=== PATIENT | female | born 1965 | race Caucasian/White ===

== ENCOUNTER 2023-04-29 18:53 | Outpatient (REF) | payer OTHER, SELFPAY ==
[2023-05-04 13:13] LABS: Age Gdln ACOG Testing Note (.); HPV Aptima Negative (Negative); IGP, Aptima HPV, rfx 16/18,45 Note (.)
== END 2023-04-29 18:54 | disposition home or self-care (01) ==
LOC: LAB 18:53
PROVIDERS: PCP Family Medicine; Visit Provider Physician Assistant
DX: Z12.4 Encounter for screening for malignant neoplasm of cervix (principal); Z11.51 Encounter for screening for human papillomavirus (HPV)
CPT/HCPCS: 87624; G0145

== ENCOUNTER 2023-07-21 15:59 | Outpatient (OUT) | payer OTHER, SELFPAY ==
--- NOTE | 2023-07-21 | MM_ITS ---
Patient: FLAQUITO PATINO Exam Date: 07/21/2023 : 1965 Gender:F Ordering : DR ELSA PALMER . Admission #: [id number] Family : DR LUDWIG Dinesh ELLSWORTH Order #: [id number] CLICK HERE TO VIEW EXAM RADIOLOGY REPORT PROCEDURE: MM TOMOSYNTHESIS SCREENING BI COMPARISON: [facility] MAMM SCREEN 3D COLLEEN CAD, 02/20/2022. [facility] MAMM SCREEN COLLEEN W CAD, 08/21/2020. MG MAMM SCREEN COLLEEN W CAD, 03/29/2019. MG MAMM COLLEEN SCRN W CAD DIG, 02/05/2011. INDICATIONS: Screening Calculator Name NCI Breast Cancer Risk Assessment Tool 5 Year Breast Cancer Risk 2.80% Lifetime Breast Cancer Risk 14.80% Personal Breast Cancer No Personal Ovarian Cancer No Treatments None Family Cancers Mother with breast cancer at age ~58; Aunt-maternal with breast cancer at age 82; Grandfather-maternal with skin cancer at age 60; Uncle-maternal with stomach cancer at age ~40. LOCATION: [facility] BREAST COMPOSITION: Extremely dense, which lowers the sensitivity of mammography. FINDINGS: DIAGNOSTIC CATEGORY 1--NEGATIVE. RIGHT BREAST: No significant suspicious finding. No significant change has occurred. LEFT BREAST: No significant suspicious finding. No significant change has occurred. RECOMMENDATIONS: ROUTINE MAMMOGRAM AND CLINICAL EVALUATION IN 12 MONTHS. PLEASE NOTE: A NORMAL MAMMOGRAM DOES NOT EXCLUDE THE POSSIBILITY OF BREAST CANCER. A CLINICALLY SUSPICIOUS PALPABLE LUMP SHOULD BE BIOPSIED. Dictated by: Jerzy Orellana M.D. on 07/23/2023 at 10:36 Approved by: Jerzy Orellana M.D. on 07/23/2023 at 10:38
== END 2023-07-21 16:00 | disposition home or self-care (01) ==
LOC: MAMMO 15:59
PROVIDERS: PCP Family Medicine; Visit Provider Obstetrics & Gynecology
DX: Z12.31 Encounter for screening mammogram for malignant neoplasm of breast (principal); Z80.3 Family history of malignant neoplasm of breast; Z80.0 Family history of malignant neoplasm of digestive organs
CPT/HCPCS: 77063; 77067

== ENCOUNTER 2023-09-02 07:07 | Outpatient (OUT) | payer OTHER, SELFPAY ==
[2023-09-02 07:35] LABS: Alanine Aminotransferase 23 U/L (14-59); Albumin Globulin Ratio 1.1; Albumin Level 3.6 g/dL (3.4-5.0); Alkaline Phosphatase 99 U/L (46-116); Anion Gap 14.6; Aspartate Amino Transferase 16 U/L (15-37); BUN Creatinine Ratio 18.1; Bilirubin Total 0.4 mg/dL (0.2-1.0); Calcium 8.4 mg/dL (8.5-10.1); Carbon Dioxide 26.5 mmol/L (21.0-32.0); Chloride 105 mmol/L (98-107); Chol HDL Ratio 3.7; Cholesterol 218 mg/dL (<=200); Estimated GFR (African America >60 (>=60); Estimated GFR (Non-African Ame >60 (>=60); Globulin 3.4 g/dL; Glucose 97 mg/dL (74-106); HDL Cholesterol 59 mg/dL (40-60); Potassium 4.1 mmol/L (3.5-5.1); Sodium 142 mmol/L (136-145); Triglycerides 126 mg/dL (<=150); VLDL CHOLESTEROL 25.2 mg/dL
== END 2023-09-02 07:08 | disposition home or self-care (01) ==
LOC: LAB 07:08
PROVIDERS: PCP Family Medicine; Visit Provider Family Medicine
DX: Z00.01 Encounter for general adult medical examination with abnormal findings (principal)
CPT/HCPCS: 36415; 80053; 80061

== ENCOUNTER 2024-08-17 19:50 | Outpatient (REF) | payer OTHER, SELFPAY ==
--- OUTSIDE RECORDS SUMMARY | 2024-08-17 19:53 | XMS_ITS | CCD ---
Author Organization [facility] Care Team Providers Care [place] Stocker Name Role Phone SHILA WALKER Attending Unavailable SARAI, DR MARCELO Harvey Consulting Unavailable REQUEST, DR CORTEZ LISTED Primary Care Unavaila ble AARON, SHILA Admitting Unavailable AARON, SHILA Consulting Unavailable AARON, SHILA Admitting Unavailable AARON, SHILA Attending Unavailable ZIEBER, DR MANUEL Irby Consulting Unavailable REQUEST, DR CORTEZ LISTED Primary Care Unavaila ble AARON, SHILA Consulting Unavailable ZIEBER, DR MANUEL Irby Consulting Unavailable REQUEST, NONE LISTED Primary Care Unavaila ble OLEXA, MITCHELL Admitting Unavailable OLEXA, MITCHELL Attending Unavailable OLEXA, MITCHELL Consulting Unavailable SPENCER, DR HUNTER Admitting Unavailable REQUEST, DR CORTEZ LISTED Primary Care Unavaila ble SPENCER, DR HUNTER Attending Unavailable SPENCER, DR HUNTER Consulting Unavailable HOUSE, DR GOTTLIEB Primary Care Unavailable WEST, DR MARCELO Harvey Consulting Unavailable SPENCER, DR HUNTER Admitting Unavailable SPENCER, DR HUNTER Attending Unavailable SPENCER, DR HUNTER Consulting Unavailable BOBBY, DR MANUEL Irby Consulting Unavailable Kai Mendoza DO Primary Care Provider [phone] ANUP KC Attending Unavailable KAI MENDOZA Referring Unavailable KAI MENDOZA Primary Care Unavailable MANJINDER CARDOZO Attending Unavailable KAI MENDOZA Referring Unavailable KAI MENDOZA Primary Care Unavailable Allergies Allergy Classification Reported Allergen(s) Allergy Type Date of Onset Reaction(s) Facility (1 source) Cephalexin Drug Allergy [facility] Repository (3 sources) Cephalexin; Translations: [CEPHALEXIN] Drug Allergy 04-29-2023 [facility] Medications Current Medications Medication Drug Class(es) Dates Sig (Normalized) Sig (Original) azithromycin 250 mg oral tablet (1 source) Macrolide Antimicrobial Start: 12-30-2023 End: 01-03-2024 azithromycin (ZITHROMAX) 250 mg tablet Indications: Acute non-recurrent pansinusitis Take 2 tablets the first day, then 1 tablet daily for 4 days. 6 tablet 0 12/30/2023 01/03/2024 Active 30 actuat fluticasone furoate 0.1 mg/actuat / umeclidinium 0.0625 mg/actuat / vilanterol 0.025 mg/actuat dry powder inhaler (1 source) Anticholinergic, Corticosteroid, beta2-Adrenergic Agonist Start: 07-18-2024 take 1 puff(s) by inhalation in the morning fluticasone-umecli din-vilanter (TRELEGY ELLIPTA) 100-62.5-25 mcg blister with device Indications: Acute bronchitis, unspecified organism Inhale 1 puff in the morning. 14 each 07/18/2024 Active predniSONE 20 mg oral tablet (1 source) Start: 07-18-2024 End: 07-23-2024 take 1 tablet by mouth in the morning predniSONE (DELTASONE) 20 mg tablet Indications: Acute bronchitis, unspecified organism Take 1 tablet (20 mg total) by mouth in the morning for 5 days. 5 tablet 07/18/2024 07/23/2024 Active Problems Active Problems Problem Classification Problem Date Documented Da te Episodic/Chronic Acute bronchitis (2 sources) Acute bronchitis, unspecified; Translations: [Acute bronchitis] Onset: 07-18-2024 07-18-2024 Episodic Immunizations and screening for infectious disease (1 source) Encounter for screening for human papillomavirus (HPV); Translations: [ENC SCREENING HUMAN PAPILLOMAVIRUS] Onset: 01-22-2022 Episodic Malaise and fatigue (1 source) Fatigue Onset: 07-18-2024 Episodic Other bone disease and musculoskeletal deformities (1 source) Other specified disorders of bone density and structure, unspecified site; Translations: [OTH D/O BONE DEN STRUCT UNS SITE] Onset: 02-26-2022 Episodic Other lower respiratory disease (1 source) Cough Onset: 07-18-2024 Episodic Other screening for suspected conditions (not mental disorders or infectious disease) (5 sources) Encounter for screening mammogram for malignant neoplasm of breast; Translations: [Encounter for screening for malignant neoplasm of cervix] Onset: 01-20-2022 Episodic Other upper respiratory disease (1 source) Nasal congestion Onset: 07-18-2024 Episodic Residual codes; unclassified (4 sources) Asymptomatic menopausal state; Translations: [ASYMPTOMATIC MENOPAUSAL STATE] Onset: 02-20-2022 Episodic Residual codes; unclassified (1 source) Family history of malignant neoplasm of breast; Translations: [FAMILY HX MALIG NEOPLASM OF BREAST] Onset: 02-26-2022 Episodic Residual codes; unclassified (1 source) Family history of malignant neoplasm of digestive organs; Translations: [FAM HX MALIG NEOPLASM DIGESTIV ORGN] Onset: 02-26-2022 Episodic Unclassified (1 source) Sinus Problem Onset: 12-30-2023 Past or Other Problems Problem Classification Problem Date Documented Da te Episodic/Chronic Fracture of upper limb (4 sources) Other fractures of lower end of right radius, subsequent encounter for closed fracture with routine healing; Translations: [OTH FX LOW RT RADUS SUB CLOS FX RTN] Onset: 04-09-2021 Episodic Mood disorders (2 sources) Mood disorders Onset: 12-30-2023 Resolved: 07-18-2024 12-30-2023 Other non-traumatic joint disorders (4 sources) Pain in right wrist; Translations: [PAIN IN RIGHT WRIST] Onset: 03-25-2021 Episodic Other upper respiratory infections (2 sources) Acute pansinusitis; Translations: [Acute pansinusitis, unspecified] Onset: 12-30-2023 12-30-2023 Episodic Unclassified (2 sources) Onset: 12-30-2023 12-30-2023 Results Test Name Value Interpretation Reference Range Facil ity MG MAMM SCREEN 3D COLLEEN CADon 02-20-2022 MG MAMM SCREEN 3D COLLEEN CAD Patient: FLAQUITO DIAZ Exam Date: 02/20/2022 : 1965 Gender:F Ordering : DR ELSA PALMER . Admission #: [id number] Family : Order #: [id number] CLICK HERE TO VIEW EXAM RADIOLOGY REPORT PROCEDURE: MAMMOGRAM SCREENING 3D BILATERAL CAD COMPARISON: MG MAMM SCREEN COLLEEN W CAD, 03/29/2019. MG MAMM SCREEN COLLEEN W CAD, 08/21/2020. INDICATIONS: Screening for malignant neoplasm of breast Calculator Name NCI Breast Cancer Risk Assessment Tool 5 Year Breast Cancer Risk 2.60% Lifetime Breast Cancer Risk 15.40% Personal Breast Cancer No Personal Ovarian Cancer No Treatments None Family Cancers Mother with breast cancer at age 58; Aunt-maternal with breast cancer at age 82; Grandfather-maternal with skin cancer at age 60; Uncle-maternal with stomach cancer at age 40. LOCATION: [facility] BREAST COMPOSITION: Extremely dense, which lowers the sensitivity of mammography. FINDINGS: DIAGNOSTIC CATEGORY 1--NEGATIVE. NO CHANGE FROM COMPARISON ASSESSMENT. Scattered benign-appearing calcifications are present. Scattered benign-appearing lymph nodes are present. RIGHT BREAST: No significant suspicious finding. LEFT BREAST: No significant suspicious finding. RECOMMENDATIONS: ROUTINE MAMMOGRAM AND CLINICAL EVALUATION IN 12 MONTHS. PLEASE NOTE: A NORMAL MAMMOGRAM DOES NOT EXCLUDE THE POSSIBILITY OF BREAST CANCER. A CLINICALLY SUSPICIOUS PALPABLE LUMP SHOULD BE BIOPSIED. Dictated by: Marcelo Moon MD on 02/21/2022 at 08:20 Approved by: Marcelo Moon MD on 02/21/2022 at 08:22 Normal [facility] XR DEXA BONE DENSITYon 02-20 XR DEXA BONE DENSITY EXAMINATION: XR DEX A BONE DENSITY, 02/20/2022 3:45 PM EDT HISTORY: Menopause present COMPARISON: None. TECHNIQUE: Dual-energy X-ray absorptiometry (DEXA) bone density study performed for the axial skeleton. FINDINGS: SPINE ANALYSIS: Average bone mineral density is 1.045 g/cm2. T-score (standard deviation relative to young adult mean): -1.1 . HIP ANALYSIS: Lowest bone mineral density is within the left femoral neck, 0.752 g/cm2. T-score (standard deviation relative to young adult mean): -2.1 . IMPRESSION: World Carlos Organization Classification: Osteopenia - Moderate Fracture Risk Electronically authenticated by: MANUEL ROSALES Date: 2022-02-20 16:41 Normal [facility] PAP ACOG PANEL 2: 30 to 65on 01-28-2022 . . Normal [facility] Comment on above: Result Comment: Perf ormed at: WB Performed By: #### [id number] #### [facility] [address] [place] [address] Dr. Juanis Solis Age Gdln ACOG Testing 30-65 Normal [facility] Comment on above: Performed By: #### [id number] #### [facility] [address] [place] [address] Dr. Juanis Solis DIAGNOSIS: Comment Abnormal [facility] Comment on above: Result Comment: EPIT HELIAL CELL ABNORMALITY. ATYPICAL SQUAMOUS CELLS OF UNDETERMINED SIGNIFICANCE (ASC-US). Performed at: WB Performed By: #### [id number] #### [facility] [address] [place] [address] Dr. Juanis Solis Electronically signed by: Comment Normal [facility] Comment on above: Result Comment: Yisel Salmeron MD, Pathologist Performed at: WB Performed By: #### [id number] #### [facility] [address] [place] [address] Dr. Juanis Solis HPV Aptima Negative Normal Negative [facility] Comment on above: Result Comment: This nucleic acid amplification test detects fourteen high-risk HPV types (16,18,31,33,35,39,45,51,52,56,58,59,66,68) without differentiation. Performed at: =G Performed By: #### [id number] #### [facility] [address] [place] [address] Dr. Juanis Solis Methodology: Comment Normal [facility] Comment on above: Result Comment: This liquid based ThinPrep(R) pap test was screened with the use of an image guided system. Performed at: WB Performed By: #### [id number] #### [facility] [address] [place] [address] Dr. Juanis Solis Note: Comment Normal [facility] Comment on above: Result Comment: The Pap smear is a screening test designed to aid in the detection of premalignant and malignant conditions of the uterine cervix. It is not a diagnostic procedure and should not be used as the sole means of detecting cervical cancer. Both false-positive and false-negative reports do occur. . Performed at: WB Performed By: #### [id number] #### [facility] [address] [place] [address] Dr. Juanis Solis Pathologist Provided ICD10 Comment Normal [facility] Comment on above: Result Comment: [id number] Performed at: WB Performed By: #### [id number] #### [facility] [address] [address] [address] Juanis Solis Performed by: Comment Normal [facility] Comment on above: Result Comment: Kellee Frankel, Manager Area (ASCP) Performed at: WB Performed By: #### [id number] #### [facility] [address] [address] [address] Juanis Solis Recommendation: Comment Abnormal [facility] Comment on above: Result Comment: Sugg est follow up as clinically appropriate. Performed at: WB Performed By: #### [id number] #### [facility] [address] [address] [address] Juanis Solis Specimen adequacy: Comment Normal [facility] Comment on above: Result Comment: Sati sfactory for evaluation. Endocervical and/or squamous metaplastic cells (endocervical component) are present. Performed at: WB Performed By: #### [id number] #### [facility] [address] [address] [address] Juanis Solis Vital Signs Date Time Vital Sign Value Performing Clinician Facility 07-18-2024 11:51-0400 Body height 149.9 cm Manjinder Marialuisa HOBBS Work Phone: [facility] 07-18-2024 11:51-0400 Body mass index (BMI) [Ratio] 28.58 kg/m2 Manjinder Adechristinebyron HOBBS Work Phone: [facility] 07-18-2024 11:51-0400 Body temperature 98.01 [degF] Manjinder Bookerchristinebyron DO Work Phone: [facility] 07-18-2024 11:51-0400 Body weight 64.18 kg Manjinder Cardozo [employer] Work Phone: [facility] 07-18-2024 11:51-0400 Diastolic blood pressure 70 mm[Hg] Manjinder Cardozo [employer] Work Phone: [facility] 07-18-2024 11:51-0400 Heart rate 71 /min Manjinder Cardozo DO Work Phone: [facility] 07-18-2024 11:51-0400 SaO2% (BldA) [Mass fraction] 99 % Manjinder Cardozo DO Work Phone: [facility] 07-18-2024 11:51-0400 Systolic blood pressure 110 mm[Hg] Manjinder Cardozo DO Work Phone: [facility] 12-30-2023 16:05-0400 Body height 149.9 cm Anup Kc TRACK SERVICE WORKER-ASSOCIATE TEACHER Work Phone: [facility] 12-30-2023 16:05-0400 Body mass index (BMI) [Ratio] 29.08 kg/m2 Anup Velezillo TRACK SERVICE WORKER-ASSOCIATE TEACHER Work Phone: [facility] 12-30-2023 16:05-0400 Body temperature 97.81 [degF] Anup Kc TRACK SERVICE WORKER-ASSOCIATE TEACHER Work Phone: [facility] 12-30-2023 16:05-0400 Body weight 65.32 kg Anup Kc TRACK SERVICE WORKER-ASSOCIATE TEACHER Work Phone: [facility] 12-30-2023 16:05-0400 Diastolic blood pressure 80 mm[Hg] Anup Velezillo TRACK SERVICE WORKER-ASSOCIATE TEACHER Work Phone: [facility] 12-30-2023 16:05-0400 Heart rate 67 /min Anup Velezillo TRACK SERVICE WORKER-ASSOCIATE TEACHER Work Phone: [facility] 12-30-2023 16:05-0400 Respiratory rate 18 /min Anup Kc TRACK SERVICE WORKER-ASSOCIATE TEACHER Work Phone: [facility] 12-30-2023 16:05-0400 SaO2% (BldA) [Mass fraction] 95 % Anup Velezillo TRACK SERVICE WORKER-ASSOCIATE TEACHER Work Phone: [facility] 12-30-2023 16:05-0400 Systolic blood pressure 130 mm[Hg] Anup De TRACK SERVICE WORKER-ASSOCIATE TEACHER Work Phone: [facility] Encounters Encounter Date Encounter Type Care Provider Facility Start: 07-18-2024 End: 07-18-2024 Office outpatient visit 15 minutes Manjinder Lucia Cardozo DO Work Phone: [facility] Comment on above: Acute bronchitis, un specified organism (Primary Dx) Start: 07-18-2024 End: 07-18-2024 ambulatory [facility] Start: 12-30-2023 End: 12-30-2023 Office outpatient visit 15 minutes Anup Kc TRACK SERVICE WORKER-ASSOCIATE TEACHER Work Phone: [facility] Comment on above: Acute non-recurrent pansinusitis (Primary Dx) Start: 12-30-2023 End: 12-30-2023 ambulatory [facility] Start: 02-20-2022 End: 02-21-[address] CHERY RUIZ Facility:[facility] Start: 01-20-2022 End: 01-20-[address] ELSA PALMER Facility:[facility] Start: 04-09-2021 End: 04-10-[address] MANUEL ROSALES Facility:[facility] Start: 03-25-2021 End: 03-26-2021 ambulatory SHILA WALKER Facility:[facility] Start: 03-04-2021 End: 03-05-2021 ambulatory SHILA WALKER Facility:[facility] Procedures Date Procedure Procedure Detail Performing Clinician Start: 07-18-2024 Adult depression scr eening assessment Manjinder Cardozo DO Work Phone: Start: 12-30-2023 Adult depression scr eening assessment Anup Kc TRACK SERVICE WORKER-ASSOCIATE TEACHER Work Phone: Start: 07-21-2023 Mammography Anup cifuentes TRACK SERVICE WORKER-ASSOCIATE TEACHER Work Phone: Start: 03-18-2023 Microscopic observat ion [Identifier] in Cervix by Cyto stain Anup Kc TRACK SERVICE WORKER-ASSOCIATE TEACHER Work Phone: Start: 11-18-2019 Colonoscopy Anup cifuentes TRACK SERVICE WORKER-ASSOCIATE TEACHER Work Phone: Plan of Treatment Date Care Activity Detail Author Start: 11-18-2029 Screening for malignant neoplasm of colon Colonoscopy [facility] Start: 03-18-2026 Screening for malignant neoplasm of cervix Pap Smear [facility] Start: 07-18-2025 Adult BMI Screening Adult BMI Screening [facility] Start: 07-18-2025 Depression Screening Depression Screening [facility] Start: 07-18-2025 Tobacco Screening Tobacco Screening [facility] Start: 12-29-2024 Adult BMI Follow Up Plan Adult BMI Follow Up Plan [facility] Start: 12-29-2024 Adult BMI Screening Adult BMI Screening [facility] Start: 12-29-2024 Depression Screening Depression Screening [facility] Start: 12-29-2024 Tobacco Screening Tobacco Screening [facility] Start: 07-21-2024 Screening for malignant neoplasm of breast Mammogram [facility] Start: 06-12-2024 COVID-19 Vaccine ( season) COVID-19 Vaccine ( season) [facility] Start: 06-12-2024 Influenza vaccination Influenza Vaccine [facility] Start: 06-12-2023 COVID-19 Vaccine ( season) COVID-19 Vaccine ( season) [facility] Start: 06-12-2023 Influenza vaccination Influenza Vaccine [facility] Start: 2014 Administration of varicella zoster vaccine Zoster (Shingles) Vaccine (1 of 2) [facility] Start: 1983 DTaP,Tdap and Td Vaccines (1 - Tdap) DTaP,Tdap and Td Vaccines (1 - Tdap) [facility] Start: 1982 Adult BMI Follow Up Plan Adult BMI Follow Up Plan [facility] Immunizations Immunization Date Immunization Notes Care Provider Fa yamini 07-30-2022 influenza virus vaccine, unspecified formulation Anup Kc APRN-ASSOCIATE TEACHER Work Phone: [facility] Payers Date Payer Category Payer Private Health Insurance [facility] [employer] [id number] 2022-Present [phone] [address] [address] [place] [address] [id number] 2022 Unknown [id number] 1965 Unknown [id number] 1965 Unknown [id number] 1965 Unknown [id number] 1965 Unknown [id number] 1965 Unknown [id number] 1965 Unknown [id number] [id number] 1965 Unknown [id number] 1959 Unknown [id number] Social History Date Type Detail Facility Start: 07-14-2023 Tobacco smoking stat [facility] Ex-smoker [facility] History of tobacco use Current smoker Pro [facility] History of tobacco use Cigarette Smoker P [facility] Start: 07-14-2023 End: 07-18-2024 Cigarettes smoked current (pack per day) - Reported 0.3 [facility] Work Phone: Start: 07-14-2023 Tobacco use and exposure Smoke less tobacco non-user [facility] Start: 12-30-2023 End: 07-18-2024 Alcohol intake Current drinker of alcohol (finding) [facility] Start: 07-14-2023 End: 07-18-2024 Social connection and isolation panel [facility] Work Phone: Do you belong to any clubs or organizations such as buddhism groups, unions, fraternal or athletic groups, or school groups? Yes [facility] Are you now , , , , never or living with a partner? [facility] How often to you hav e a drink containing alcohol? Monthly or less [facility] How many standard dr inks containing alcohol do you have on a typical day? 1 or 2 [facility] How often do you hav e 6 or more drinks on 1 occasion? Never [facility] How hard is it for y ou to pay for the very basics like food, housing, medical care, and heating Not hard at all [facility] Do you feel stress - tense, restless, nervous, or anxious, or unable to sleep at night because your mind is troubled all the time - these days [OSQ] Only a little [facility] Start: 07-14-2023 Alcohol Comment Occasional [facility] Start: 1965 Sex Assigned At Not on file P [facility] History of Present illness Narrative 07-18-2024 Manjinder Cardozo, DO - 07/18/2024 11:45 AM EDT Note Date & Type Note Facility 07-18-2024 History of Presen t illness Narrative IM PROGRESS NOTE Patient - Flaquito Diaz Age - 59 y.o. - 1965 ASSESSMENT & PLAN 1. Acute bronchitis, unspecified organism -appears to have upper respiratory infection or allergic reaction, which has spread to the upper airways of the long. -start prednisone burst 20 mg daily x5 days -inhaler routinely for the next 5-7 days -may continue OTC Roz-Dunmore or Robitussin for symptom relief -if not improving over the next 3-4 days, will need to add antibiotic. - predniSONE (DELTASONE) 20 mg tablet; Take 1 tablet (20 mg total) by mouth in the morning for 5 days. Dispense: 5 tablet; Refill: 0 - fdvlofrkrwq-ephigkvdg-fqcnvkmp (TRELEGY ELLIPTA) 100-62.5-25 mcg blister with device; Inhale 1 puff in the morning. Dispense: 14 each; Refill: 0 Subjective RESPIRATORY SYMPTOMS Symptoms started several days ago . Each episode lasts few days. The symptoms have affected ability to work or normal ADLs. Symptoms have affected sleep. Upper airway symptoms include nasal congestion, rhinorrhea - clear, post nasal drip/clearing throat, and cough - dry . Lower airway symptoms include chest tightness in the upper gill anterior . Previous treatments include OTC cough/cold product of patient's choice PRN and fluids and rest. These treatments have provided partial relief. Close personal contact have not been sick. Similar symptoms-illnesses have occurred rare in the past. A review of systems was negative except for the following: ENT: nasal congestion and sore throat. Exam BP 110/70 (BP Site: Left Arm, BP Postition: Sitting) Pulse 71 Temp 36.7 C (98 F) (Tympanic) Ht 149.9 cm (4' 11 ) Wt 64.2 kg (141 lb 8 oz) SpO2 99% BMI 28.58 kg/m Physical Exam Vitals reviewed. Constitutional: General: She is not in acute distress. Appearance: She is not toxic-appearing. Comments: Overweight HENT: Head: Normocephalic. Right Ear: Tympanic membrane, ear canal and external ear normal. Left Ear: Tympanic membrane, ear canal and external ear normal. Nose: Congestion and rhinorrhea present. Mouth/Throat: Mouth: Mucous membranes are moist. Pharynx: Posterior oropharyngeal erythema present. Comments: Postnasal drainage Eyes: General: No scleral icterus. Cardiovascular: Rate and Rhythm: Normal rate. Pulses: Normal pulses. Heart sounds: No murmur heard. No gallop. Pulmonary: Effort: Pulmonary effort is normal. Breath sounds: Wheezing (Faint wheezing bilateral anterior gill) present. No rales. Abdominal: Palpations: Abdomen is soft. Musculoskeletal: Cervical back: No tenderness. Lymphadenopathy: Cervical: No cervical adenopathy. Skin: General: Skin is warm and dry. Coloration: Skin is not jaundiced. Findings: No bruising. Neurological: Mental Status: She is alert and oriented to person, place, and time. Psychiatric: Mood and Affect: Mood normal. Behavior: Behavior normal. Meds Current Outpatient Medications: namvvcywgrn-etrfwyjsf-lwabqjry (TRELEGY ELLIPTA) 100-62.5-25 mcg blister with device, Inhale 1 puff in the morning., Disp: 14 each, Rfl: 0 predniSONE (DELTASONE) 20 mg tablet, Take 1 tablet (20 mg total) by mouth in the morning for 5 days., Disp: 5 tablet, Rfl: 0 Lab Results No visits with results within 1 Month(s) from this visit. Latest known visit with results is: Orders Only on 09/04/2023 Component Date Value Ref Range Status External Cholesterol 09/02/2023 218 Final External Cholesterol:Hdl 09/02/2023 59 Final External Ldl (Calc) 09/02/2023 134.0 Final External Triglycerides 09/02/2023 126 Final External Albumin 09/02/2023 3.6 Final External Alt Sgpt 09/02/2023 23 Final External Anion Gap 09/02/2023 14.6 Final External Ast 09/02/2023 16 Final External Blood Urea Nitrogen Bun 09/02/2023 13.0 Final External Calcium Ca 09/02/2023 8.4 Final External Chloride 09/02/2023 105 Final External Co2 / Carbon Dioxide 09/02/2023 26.5 Final External Creatinine 09/02/2023 0.72 Final External Gfr Non Amer 09/02/2023 >60 Final External Alkaline Phosphatase 09/02/2023 99 Final External Glucose Fasting Or Rando* 09/02/2023 97 Final External Potassium K 09/02/2023 4.1 Final External Sodium Na 09/02/2023 142 Final Total Bilirubin 09/02/2023 0.4 Final External Total Protein 09/02/2023 7.0 Final Other Testing No results found. Manjinder Cardozo DO., [facility]: [phone] documented in this encounter [facility] History of Present illness Narrative 12-30-2023 Anup Kc APRN-ASSOCIATE TEACHER - 12/30/2023 4:00 PM EDT Note Date & Type Note Facility 12-30-2023 History of Present illness Narrative Images from the original note were not included. [address] [place] [address] SUBJECTIVE: Patient ID: Flaquito Diaz is a 58 y.o. female. Chief Complaint Patient presents with Sinus Problem X2 months States she has been struggling with cough, sinus drainage and and congestion. Sometimes she has a runny nose. Additional complaints is ear fullness. Alleviating methods include nasal saline irrigation without benefit. Sinus Problem This is a new problem. The current episode started 1 to 4 weeks ago. The problem has been waxing and waning since onset. There has been no fever. Her pain is at a severity of 5/10. The pain is moderate. Associated symptoms include congestion, coughing, ear pain, headaches, a hoarse voice, sinus pressure and a sore throat. Pertinent negatives include no chills or shortness of breath. Treatments tried: nasal saline irrigation. The treatment provided mild relief. The following portions of the patient's history were reviewed and updated as appropriate: allergies, current medications, past family history, past medical history, past social history, past surgical history and problem list. Past Surgical History: Procedure Laterality Date COLONOSCOPY FRACTURE SURGERY TONSILLECTOMY TUBAL LIGATION Past Medical History: Diagnosis Date Allergic Immunization History Administered Date(s) Administered COVID-19, mRNA, LNP-S, PF, 30mcg/0.3mL Dose 02/22/2021, 03/15/2021 Covid-19, Mrna, Lnp-s, Pf, 30 Mcg/0.3 Ml Dose, Tj-sucrose 12/19/2021 REVIEW OF SYSTEMS: Review of Systems Constitutional: Negative for chills and fever. HENT: Positive for congestion, ear pain, hoarse voice, postnasal drip, sinus pressure, sore throat and voice change. Eyes: Negative for visual disturbance. Respiratory: Positive for cough. Negative for chest tightness and shortness of breath. Cardiovascular: Negative for chest pain and palpitations. Gastrointestinal: Negative. Endocrine: Negative. Genitourinary: Negative for menstrual problem and pelvic pain. Musculoskeletal: Negative. Skin: Negative. Allergic/Immunologic: Negative. Neurological: Positive for headaches. Negative for syncope and facial asymmetry. Hematological: Does not bruise/bleed easily. Psychiatric/Behavioral: Negative. PHYSICAL EXAMINATION: Vitals: 12/30/23 1605 BP: 130/80 BP Site: Left Arm BP Postition: Sitting Pulse: 67 Resp: 18 Temp: 36.6 C (97.8 F) TempSrc: Oral SpO2: 95% Weight: 65.3 kg (144 lb) Height: 149.9 cm (4' 11 ) Patient noted to have elevated BMI and the following intervention(s) were applied: encouragement to exercise. Physical Exam Vitals and nursing note reviewed. Constitutional: General: She is not in acute distress. Appearance: She is well-developed. She is not diaphoretic. HENT: Head: Normocephalic and atraumatic. Right Ear: External ear normal. Tympanic membrane is erythematous and bulging. Left Ear: External ear normal. Tympanic membrane is erythematous and bulging. Nose: Nasal tenderness and congestion present. Right Turbinates: Swollen. Left Turbinates: Swollen. Right Sinus: Maxillary sinus tenderness and frontal sinus tenderness present. Left Sinus: Frontal sinus tenderness present. Mouth/Throat: Mouth: Mucous membranes are moist. Pharynx: No oropharyngeal exudate. Eyes: General: Right eye: No discharge. Left eye: No discharge. Conjunctiva/sclera: Conjunctivae normal. Pupils: Pupils are equal, round, and reactive to light. Neck: Thyroid: No thyromegaly. Vascular: No JVD. Cardiovascular: Rate and Rhythm: Normal rate and regular rhythm. Heart sounds: Normal heart sounds. No murmur heard. No friction rub. No gallop. Pulmonary: Effort: Pulmonary effort is normal. Breath sounds: Normal breath sounds. Abdominal: General: Bowel sounds are normal. There is no distension. Palpations: Abdomen is soft. There is no mass. Tenderness: There is no abdominal tenderness. Musculoskeletal: General: Normal range of motion. Cervical back: Normal range of motion and neck supple. Lymphadenopathy: Cervical: No cervical adenopathy. Skin: General: Skin is warm and dry. Capillary Refill: Capillary refill takes less than 2 seconds. Neurological: Mental Status: She is alert and oriented to person, place, and time. Deep Tendon Reflexes: Reflexes are normal and symmetric. Psychiatric: Mood and Affect: Mood normal. Behavior: Behavior normal. Thought Content: Thought content normal. Judgment: Judgment normal. ASSESSMENT/PLAN: Flaquito was seen today for sinus problem. Diagnoses and all orders for this visit: Acute non-recurrent pansinusitis - azithromycin (ZITHROMAX) 250 mg tablet; Take 2 tablets the first day, then 1 tablet daily for 4 days. Cool mist humidification for congestion, warm salt water gargles as needed for sore throat. Motrin or Tylenol as needed per specimen processor guidelines for fever or pain. May continue nasal saline irrigation once daily to aid with alleviating symptoms. ALL QUESTIONS ANSWERED Total time spent was 25 minutes: Preparing to see the patient (e.g., review of tests) Obtaining and/or reviewing separately obtained history Performing a medically appropriate examination and/or evaluation Counseling and educating the patient/family/caregiver Ordering medications, tests, or procedures Follow-up: Next scheduled Sooner if symptoms do not improve MAITE Thomas 12/30/23 1627 documented in this encounter [facility] Clinical Note 04-09-2021 Note Date & Type Note Facility 04-09-2021 Note PROCEDURE: XR WRIST RT 2V HISTORY: Closed fracture of distal end of radius COMPARISON: XR wrist right 03/25/2021 FINDINGS: BONES:Repair of distal radius fracture via anterior plate and screws; no visible hardware fracture or loosening. Stable separate fragment involving the ulnar styloid process. Mild widening of the scaphoid-lunate joint, 4.5 mm. SOFT TISSUES:No visible soft tissue swelling. EFFUSION:None visible. OTHER: Negative. IMPRESSION: 1. Stable surgical changes without evidence of hardware failure. 2. Stable separation of the ulnar styloid process. 3. Abnormal widening of the scapholunate joint concerning for ligament disruption. Electronically authenticated by: MANUEL ROSALES Date: 2021-04-09 17:35 [facility] Clinical Note 03-25-2021 Note Date & Type Note Facility 03-25-2021 Note PROCEDURE: XR WRIST RT 2V HISTORY: Pain of right wrist ; postop evaluation COMPARISON: XR right wrist 03/04/2021 FINDINGS: BONES:Prior surgical repair of the distal radius fracture with anterior plate and screws; no evidence of hardware fracture or loosening. Mildly displaced fracture of the ulnar styloid process, unchanged. SOFT TISSUES:No visible soft tissue swelling. EFFUSION:None visible. OTHER: Negative. IMPRESSION: 1. Stable surgical repair of the distal right radius without evidence of hardware failure or change in alignment. Electronically authenticated by: MANUEL ROSALES Date: 2021-03-25 16:29 [facility] Clinical Note 03-04-2021 Note Date & Type Note Facility 03-04-2021 Note PROCEDURE: XR WRIST RT 2V COMPARISON: 02/04/2021 HISTORY: Pain of right wrist FINDINGS: BONES:Stable complex intra-articular fracture of the distal radius fixed with a bulbar plate and multiple screws. Several the screws may protrude beyond the articular surface. Stable ulnar styloid process with incomplete union SOFT TISSUES:Negative. No visible soft tissue swelling. EFFUSION:None visible. OTHER: Negative. IMPRESSION: Stable open reduction internal fixation of a distal radius fracture Electronically authenticated by: MARCELO MOON Date: 2021-03-04 14:10 [facility] Evaluation note Note Date & Type Note Facility Evaluation note Diagnosis Acute non-recurrent pansinusitis- Primary documented in this encounter [facility] Evaluation note Note Date & Type Note Facility Evaluation note Diagnosis Acute bronchitis, unspecified organism- Primary documented in this encounter [facility] Instructions Attachments Note Date & Type Note Facility Instructions The following attachments cannot be sent through Care Everywhere.Sinusitis, Adult ED ([place])documented in this encounter [facility] Instructions Note Date & Type Note Facility Instructions Not on filedocumented in this en counter [facility] Summary Purpose Family History No Family History Records FoundNo Family History Records Found Advance Directives No Advanced Directives Records FoundNo Advanced Directives Records Found Additional Source Comments INFORMATION SOURCE (unrecogn ized section and content) DATE CREATED AUTHOR 03/01/2022 [facility] DATE CREATED AUTHOR AUTHOR'S ORGANIZ ATION 07/19/2024 [facility] Reason for Visit (unrecogniz ed section and content) Reason Comments Sinus Problem X2 months Reason Comments Nasal Congestion Fatigue Cough X5 days Care Teams (unrecognized sec tion and content) [employer] Relationship Specialty Start Date End Date Kai Mendoza DO [address] [facility], [place] [address] PCP - General Family Medicine 07/14/23 [employer] Relationship Specialty Start Date End Date Kai Mendoza DO [address], [place] [address] PCP - General Family Medicine 07/14/23 FOR RECORDS PERTAINING TO PATIENTS WHO ARE OR HAVE BEEN ENROLLED IN A CHEMICAL DEPENDENCY/SUBSTANCEABUSE PROGRAM, SOME INFORMATION MAY BE OMITTED. This clinical summary was aggregated from multiple sources. Caution should be exercised in using it in the provision of clinical care. This summary normalizes information from multiple sources, and as a consequence, information in this document may materially change the coding, format and clinical context of patient data. In addition, data may be omitted in some cases. CLINICAL DECISIONS SHOULD BE BASED ON THE PRIMARY CLINICAL RECORDS. [employer] provides no warranty or guarantee of the accuracy or completeness of information in this document.
[2024-08-25 12:09] LABS: Age Gdln ACOG Testing Note (.); HPV Aptima Negative (Negative); IGP, Aptima HPV, rfx 16/18,45 Note (.)
== END 2024-08-17 19:51 | disposition home or self-care (01) ==
LOC: LAB 19:50
PROVIDERS: PCP Family Medicine; Visit Provider Physician Assistant
DX: Z01.419 Encounter for gynecological examination (general) (routine) without abnormal findings (principal)
CPT/HCPCS: 87624; 88175

== ENCOUNTER 2024-09-05 07:54 | Outpatient (OUT) | payer OTHER, SELFPAY ==
--- NOTE | 2024-09-05 07:57 | MM_ITS ---
Patient Name: FLAQUITO PATINO MR#: [id number] : 1965 Exam Date: 09/05/2024 Ordering Doctor: VERONA Viveros . RADIOLOGY REPORT PROCEDURE: MM TOMOSYNTHESIS SCREENING BI COMPARISON: MM TOMOSYNTHESIS SCREENING BI, 07/21/2023. MG MAMM SCREEN 3D COLLEEN CAD, 02/20/2022. MG MAMM SCREEN COLLEEN W CAD, 08/21/2020. MG MAMM COLLEEN SCRN W CAD DIG, 02/05/2011. INDICATIONS: Screening Calculator Name NCI Breast Cancer Risk Assessment Tool 5 Year Breast Cancer Risk 2.90% Lifetime Breast Cancer Risk 14.40% Personal Breast Cancer No Personal Ovarian Cancer No Treatments None Family Cancers Mother with breast cancer at age ~58; Aunt-maternal with breast cancer at age 82; Grandfather-maternal with skin cancer at age 60; Uncle-maternal with stomach cancer at age ~40. LOCATION: [facility] BREAST COMPOSITION: The breasts are extremely dense, which lowers the sensitivity of mammography. FINDINGS: DIAGNOSTIC CATEGORY 1--NEGATIVE. RIGHT BREAST: No significant suspicious finding. No significant change has occurred. LEFT BREAST: No significant suspicious finding. No significant change has occurred. RECOMMENDATIONS: ROUTINE MAMMOGRAM AND CLINICAL EVALUATION IN 12 MONTHS. PLEASE NOTE: A NORMAL MAMMOGRAM DOES NOT EXCLUDE THE POSSIBILITY OF BREAST CANCER. A CLINICALLY SUSPICIOUS PALPABLE LUMP SHOULD BE BIOPSIED. Dictated by: Jerzy Orellana M.D. on 09/06/2024 at 13:52 Approved by: Jerzy Orellana M.D. on 09/06/2024 at 13:56
--- OUTSIDE RECORDS SUMMARY | 2024-09-05 08:16 | XMS_ITS | CCD ---
Author Organization [facility] Care Team Providers Care Stakes Player Name Role Phone SHILA WALKER Attending Unavailable SARAI, DR MARCELO Harvey Consulting Unavailable REQUEST, DR CORTEZ LISTED Primary Care Unavaila ble AARON, SHILA Admitting Unavailable AARNO, SHILA Consulting Unavailable AARON, SHILA Admitting Unavailable [...] Attending Unavailable SPENCER, DR HUNTER Consulting Unavailable SARA, DR GOTTLIEB Primary Care Unavailable SARAI, DR MARCELO Harvey Consulting Unavailable SPENCER, DR HUNTER Admitting Unavailable SPENCER, DR HUNTER Attending Unavailable SPENCER, DR HUNTER Consulting Unavailable ZIEBER, DR MANUEL Irby Consulting Unavailable Kai Mendoza DO Primary Care Provider ANUP KC Attending Unavailable KAI MENDOZA Referring Unavailable KAI MENDOZA Primary Care Unavailable MANJINDER CARDOZO Attending Unavailable KAI MENDOZA Referring Unavailable KAI MENDOZA Primary Care Unavailable Leodan Ruiz MD Primary Care Provider EMILEE BEATTY Attending Unavailable Allergies Allergy Classification Reported Allergen(s) Allergy Type Date of Onset Reaction(s) Facility (1 source) Cephalexin Drug Allergy [facility] Repository (7 sources) Cephalexin; Translations: [CEPHALEXIN] Drug Allergy 04-29-2023 [facility] Medications Current Medications Medication Drug Class(es) Dates [...] / vilanterol 0.025 mg/actuat dry powder inhaler (4 sources) Anticholinergic, Corticosteroid, beta2-Adrenergic Agonist Start: 07-18-2024 take 1 puff(s) by inhalation in the morning Fluticasone-Umecli din-Vilant (Trelegy Ellipta) 100-62.5-25 MCG/ACT aerosol powder Inhale 1 puff in the morning. 07/18/2024 Active predniSONE 20 mg oral tablet [...] fatigue (1 source) Fatigue Onset: 07-18-2024 Episodic Osteoporosis (2 sources) Postmenopausal osteoporosis; Translations: [Age-related osteoporosis without current pathological fracture] 08-17-2024 Chronic Other bone disease and musculoskeletal deformities (1 source) Other specified disorders of bone density and structure, unspecified site; Translations: [OTH D/O BONE DEN STRUCT UNS SITE] Onset: 02-26-2022 Episodic Other lower respiratory disease (1 source) Cough Onset: 07-18-2024 Episodic Other screening for suspected conditions (not mental disorders or infectious disease) (7 sources) Encounter for screening mammogram for malignant [...] Results Test Name Value Interpretation Reference Range Facility IGP,APTIMA HPV,AGE GDLNon AGE GDLN ACOG TESTING Note . [facility] Comment on above: TESTS RESULT FLAG UN ITS REF RANGE LAB Clinician Provided Cytology Information Source.............Cervix;Endocervix No. of containers..01 ThinPrep Vial Age Ga MCKAY Debbie... 29 FLAG LEGEND: L-Low Normal,H-High Normal,LL-Alert Low,HH-Alert High <-Panic Low,>-Panic High,A-Abnormal,AA-Critical Abnormal Performed at: 01 =[address] [address] Reba Smith MD, HPV APTIMA Negative Negative [facility] Comment on above: This nucleic acid am plification test detects fourteen high- risk HPV types (16,18,31,33,35,39,45,51,52,56,58,59,66,68) without differentiation. Performed at: =[address] [id number] [employer]: Reba Smith MD, Phone: [phone] Performed at: [address] [id number] [employer]: Reba Smith MD, Phone: [phone] IGP, APTIMA HPV, RFX 16/18,45 Note . [facility] Comment on above: TESTS RESULT FLAG U NITS REF RANGE LAB DIAGNOSIS: 02 NEGATIVE FOR INTRAEPITHELIAL LESION OR MALIGNANCY. Specimen adequacy: 02 Satisfactory for evaluation. No endocervical component is identified. Performed by: 02 Asia West, Hammersmith Helper (ASCP) . 02 Note: Note 02 The Pap smear is a screening test designed to aid in the detection of premalignant and malignant conditions of the uterine cervix. It is not a diagnostic procedure and should not be used as the sole means of detecting cervical cancer. Both false-positive and false-negative reports do occur. Test Methodology: Note 02 This liquid based ThinPrep(R) pap test was screened with the use of an image guided system. HPV Genotype Reflex Note 02 Criteria not met, HPV Genotype not performed. FLAG LEGEND: L-Low Normal,H-High Normal,LL-Alert Low,HH-Alert High <-Panic Low,>-Panic High,A-Abnormal,AA-Critical Abnormal Performed at: [address] [address] Reba Smith MD, BRUSH-SPATULA CERVIX ENDOCERVIX [facility] Cervical or vaginal smear or scraping studyon 05-22-2023 [facility] MAMM SCREEN 3D COLLEEN CADon 02-20-2022 MG MAMM SCREEN 3D COLLEEN CAD Patient: FLAQUITO DIAZ Exam Date: 02/20/2022 : 1965 Gender:F Ordering : DR ELSA PALMER . Admission #: [id number] Family : Order #: [id number] CLICK HERE TO VIEW EXAM RADIOLOGY REPORT [...] stomach cancer at age 39. LOCATION: [facility] BREAST COMPOSITION: Extremely dense, which lowers the [...] Moon MD on 02/21/2022 at 08:22 Normal [facility] XR DEXA BONE DENSITYon 02-20 XR DEXA [...] authenticated by: MANUEL ROSALES Date: 2022-02-20 16:41 [facility] PAP ACOG PANEL 2: 30 to 65on 01-28-2022 . . Normal [facility] Comment on above: Result Comment: Perf ormed at: WB Performed By: #### [id number] #### [facility] [address] [address] Dr. Juanis Solis Age Gdln ACOG Testing 30-65 [facility] Comment on above: Performed By: #### [id number] #### [facility] [address] [place] [address] Dr. Juanis Solis DIAGNOSIS: Comment Abnormal [facility] Comment on above: Result Comment: EPIT HELIAL CELL ABNORMALITY. ATYPICAL SQUAMOUS CELLS OF UNDETERMINED SIGNIFICANCE (ASC-US). Performed at: WB Performed By: #### [id number] #### [facility] [address] [place] [address] Dr. Juanis Solis Electronically signed by: Comment Normal [facility] Comment on above: Result Comment: Yisel Salmeron MD, Pathologist Performed at: WB Performed By: #### [id number] #### [facility] [address] [place] [address] Dr. Juanis Solis HPV Aptima Negative Normal Negative [facility] Comment on above: Result Comment: This nucleic acid amplification test detects fourteen high-risk HPV types (16,18,31,33,35,39,45,51,52,56,58,59,66,68) without differentiation. Performed at: =G Performed By: #### [id number] #### [facility] [address] [place] [address] Dr. Juanis Solis Methodology: Comment Normal [facility] Comment on above: Result Comment: This liquid based ThinPrep(R) pap test was screened with the use of an image guided system. Performed at: WB Performed By: #### [id number] #### [facility] [address] [place] [address] Dr. Juanis Solis Note: Comment Normal [facility] Comment on above: Result Comment: The Pap smear is a screening test designed to aid in the detection of premalignant and malignant conditions of the uterine cervix. It is not a diagnostic procedure and should not be used as the sole means of detecting cervical cancer. Both false-positive and false-negative reports do occur. . Performed at: WB Performed By: #### [id number] #### [facility] [address] [place] [address] Dr. Juanis Solis Pathologist Provided ICD10 Comment Normal [facility] Comment on above: Result Comment: R87. [id number] Performed at: WB Performed By: #### [id number] #### [facility] [address] [address] [address] Juanis Solis Performed by: Comment Normal [facility] Comment on above: Result Comment: Kellee Frankel, Hammersmith Helper (ASCP) Performed at: WB Performed By: #### 4 [id number] #### [facility] [address] [address] [address] Juanis Solis Recommendation: Comment Abnormal [facility] Comment on above: Result Comment: Sugg est follow up as clinically appropriate. Performed at: WB Performed By: #### [id number] #### [facility] [address] [address] [address] Juanis Solis Specimen adequacy: Comment Normal [facility] Comment on above: Result Comment: Sati sfactory for evaluation. Endocervical and/or squamous metaplastic cells (endocervical component) are present. Performed at: WB Performed By: #### [id number] #### [facility] [address] [address] [address] Juanis Solis Vital Signs Date Time Vital Sign Value Performing Clinician Facility 08-17-2024 14:19-0500 Body mass index (BMI) [Ratio] 28.48 kg/m2 Emilee RHOADES Work Phone: [facility] 08-17-2024 14:19-0500 Body weight 63.96 kg Emilee RHOADES Work Phone: [facility] 08-17-2024 14:19-0500 Diastolic blood pressure 72 mm[Hg] Emilee RHOADES Work Phone: [facility] 08-17-2024 14:19-0500 Systolic blood pressure 118 mm[Hg] Emilee RHOADES Work Phone: [facility] 07-18-2024 11:51-0400 Body height 149.9 cm Manjinder Cardozo DO Work Phone: [facility] 07-18-2024 11:51-0400 Body mass index (BMI) [Ratio] 28.58 kg/m2 Manjinder Cardozo DO Work Phone: [facility] 07-18-2024 11:51-0400 Body temperature 98.01 [degF] Manjinder Cardozo DO Work Phone: [facility] [employer] [facility] 07-18-2024 11:51-0400 Body weight 64.18 kg Manjinder Cardozo DO Work Phone: [facility] [employer] [facility] 07-18-2024 11:51-0400 Diastolic blood pressure 70 mm[Hg] Manjinder Cardozo DO Work Phone: [facility] [employer] [facility] 07-18-2024 11:51-0400 Heart rate 71 /min Manjinder Cardozo DO Work Phone: [facility] [employer] [facility] 07-18-2024 11:51-0400 SaO2% (BldA) [Mass fraction] 99 % aMnjinder Cardozo DO Work Phone: [facility] [employer] [facility] 07-18-2024 11:51-0400 Systolic blood pressure 110 mm[Hg] Manjinder Cardozo DO Work Phone: [facility] [employer] [facility] 12-30-2023 16:05-0400 Body height 149.9 cm Anup Kc [employer] Work Phone: [facility] 12-30-2023 16:05-0400 Body mass index (BMI) [Ratio] 29.08 kg/m2 Anup Kc [employer] Work Phone: [facility] [employer] [facility] 12-30-2023 16:05-0400 Body temperature 97.81 [degF] Anup Kc APRN-[employer] Work Phone: [facility] [employer] [facility] 12-30-2023 16:05-0400 Body weight 65.32 kg Anup Kc [employer] Work Phone: [facility] 12-30-2023 16:05-0400 Diastolic blood pressure 80 mm[Hg] Anup Kc [employer] Work Phone: [facility] 12-30-2023 16:05-0400 Heart rate 67 /min Anup ARORA Work Phone: [employer] 12-30-2023 16:05-0400 Respiratory rate 18 /min Anup Kc APRN-CHING Work Phone: [employer] 12-30-2023 16:05-0400 SaO2% (BldA) [Mass fraction] 95 % Anup Kc APRN-[employer] Work Phone: [employer] 12-30-2023 16:05-0400 Systolic blood pressure 130 mm[Hg] Anupwilner Kc APRNPearl [employer] Work Phone: [employer] Encounters Encounter Date Encounter Type Care Provider Facility Start: 08-17-2024 End: 08-17-2024 Bamboo flowsheet Emilee RHOADES Work Phone: [facility] Start: 08-17-2024 End: 08-25-2024 Bamboo flowsheet Emilee RHOADES Work Phone: [facility] Start: 08-17-2024 End: 08-25-2024 [facility] Result Encounter Emilee RHOADES Work Phone: [facility] External Department Unsolicited Start: 08-17-2024 End: 08-17-2024 Patient encounter procedure Emilee RHOADES Work Phone: [facility] Start: 08-17-2024 End: 08-17-2024 Periodic preventive med est patient 40-64yrs Emilee RHOADES Work Phone: [facility] Comment on above: Well woman exam with routine gynecological exam; Breast cancer screening by mammogram; Osteoporosis, post-menopausal ([facility]/HCC) Start: 08-17-2024 End: 08-17-2024 ambulatory EMILEE BEATTY Not Available Start: 07-18-2024 End: 07-18-2024 Office outpatient visit 15 minutes Manjinder Cardozo DO Work Phone: [facility] Comment on above: Acute bronchitis, un specified organism (Primary Dx) Start: 07-18-2024 End: 07-18-2024 ambulatory MANJINDER Myers [facility] Start: 12-30-2023 End: 12-30-2023 Office outpatient visit 15 minutes Anup Kc [employer] Work Phone: [facility] Comment on above: Acute non-recurrent pansinusitis (Primary Dx) Start: 12-30-2023 End: 12-30-2023 ambulatory ANUP KC [facility] Start: 02-20-2022 End: 02-21-[address] LEODAN RUIZ Facility:[facility]1 Start: 01-20-2022 End: 01-20-[address] ELSA PALMER Facility:[facility] Start: 04-09-2021 End: 04-10-[address] MANUEL ROSALES Facility:[facility] Start: 03-25-2021 End: 03-26-2021 ambulatory SHILA WALKER Facility:[facility] Start: 03-04-2021 End: 03-05-2021 ambulatory SHILA WALKER Facility:[facility] Procedures Date Procedure Procedure Detail Performing Clinician Start: 08-17-2024 IGP,APTIMA HPV,AGE GDLN Emilee RHOADES Work Phone: Start: 07-18-2024 Adult depression scr eening assessment [facility] Work Phone: Start: 12-30-2023 Adult depression scr eening assessment Anup Kc [employer] Work Phone: Start: 07-23-2023 Mammography Emilee RHOADES Work Phone: Start: 07-21-2023 Mammography Anup cifuentes [employer] Work Phone: Start: 05-22-2023 Microscopic observat ion [Identifier] in Cervix by Cyto stain Emilee RHOADES Work Phone: Start: 05-22-2023 Cytp cerv/vag auto t hin layer prep mnl screen Emilee RHOADES Work Phone: Start: 03-18-2023 Microscopic observat ion [Identifier] in Cervix by Cyto stain Anup Kc [employer] Work Phone: Start: 11-18-2019 Colonoscopy Anup cifuentes [employer] Work Phone: Plan of Treatment Date Care Activity Detail Author Start: 11-18-2029 Screening for malign ant neoplasm of colon [facility] Start: 05-22-2028 Screening for malign ant neoplasm of cervix [facility] Start: 03-18-2026 Screening for malign ant neoplasm of cervix Pap Smear [facility] Start: 08-22-2025 End: 08-22-2025 Patient encounter procedure 08/22/2025 1:00 PM EST Office Visit [facility] [address] [place] [id number] Emilee Beatty PA [address] [place] [address] [facility] Start: 07-18-2025 Adult BMI Screening Adult BMI Screen ing [facility] Start: 07-18-2025 Depression Screening Depression Scre ening [facility] Start: 07-18-2025 Tobacco Screening Tobacco Screening [facility] Start: 12-29-2024 Adult BMI Follow Up Plan Adult BMI Follow Up Plan [facility] Start: 12-29-2024 Adult BMI Screening Adult BMI Screen ing [facility] Start: 12-29-2024 Depression Screening Depression Scre ening [facility] Start: 12-29-2024 Tobacco Screening Tobacco Screening [facility] Start: 08-17-2024 End: 08-17-2025 DXA Skeletal system Views for bone density DEXA bone density Imaging Routine Osteoporosis, post-menopausal (CMS/HCC) Expected: 08/17/2024 (Approximate), Expires: 08/17/2025 [facility] Comment on above: Expected: 08/17/2024 (Approximate), Expires: 08/17/2025 Start: 08-17-2024 End: 10-17-2025 MG Breast - bilateral Screening Bilateral screening mammogram Imaging Routine Breast cancer screening by mammogram Expected: 08/17/2024 (Approximate), Expires: 10/17/2025 [facility] Work Phone: Comment on above: Expected: 08/17/2024 (Approximate), Expires: 10/17/2025 Start: 08-17-2024 End: 08-17-2024 Patient encounter procedure 08/17/2024 2:00 PM EST Office Visit [facility] [address] [place] [id number] Emilee Beatty PA [address] [place] [address] Arrived [facility] Comment on above: Arrived Start: 07-23-2024 Screening for malign ant neoplasm of breast Mammogram [facility] Start: 07-21-2024 Screening for malign ant neoplasm of breast Mammogram [facility] Start: 06-12-2024 COVID-19 Vaccine ( season) COVID-19 Vaccine ( season) [facility] Start: 06-12-2024 Influenza vaccination [facility] Start: 06-12-2023 COVID-19 Vaccine ( season) COVID-19 Vaccine ( season) [facility] Start: 06-12-2023 Influenza vaccination Influenza Vacc ine [facility] Start: 2014 Administration of varicella zoster vaccine Zoster (Shingles) Vaccine (1 of 2) [facility] Start: 1983 DTaP,Tdap and Td Vaccines (1 - Tdap) DTaP,Tdap and Td Vaccines (1 - Tdap) [facility] Start: 1982 Adult BMI Follow Up Plan Adult BMI Follow Up Plan [facility] Start: 1965 Screening for malign ant neoplasm of colon [facility] THIN PREP TIS PAP AN D HR HPV DNA THIN PREP TIS PAP AND HR HPV DNA Pathology and Cytology Routine Well woman exam with routine gynecological exam Ordered: 08/17/2024 [facility] Comment on above: Ordered: 08/17/2024 Immunizations Immunization Date Immunization Notes Care Provider Fa cility 07-30-2022 influenza virus vaccine, unspecified formulation Anup ARORA Work Phone: [facility] Payers Date Payer Category Payer Private Health Insurance [id number] 2022 Unknown [id number] 1965 Unknown [id number] 2.16.84 [id number] 1965 Unknown [id number] 2.16.84 [id number] 1965 Unknown [id number] 2.16.84 [id number] 1965 Unknown [id number] 2.16.84 [id number] 1965 Unknown [id number] 2.16.84 [id number] 1965 Unknown [id number] 2.16.8 [id number] 1965 Unknown [id number] 2.16.8 [id number] 1965 Unknown [id number] 2.16.84 [id number] 1959 Unknown [id number] Social History Date Type Detail Facility Start: 07-14-2023 Tobacco smoking status [facility] Ex-smoker [facility] History of tobacco use Current smoker [facility] History of tobacco use Cigarette Smoker P [facility] Start: 07-14-2023 End: 08-17-2024 Cigarettes smoked current (pack per day) - Reported 0.3 [facility] Work Phone: Start: 07-14-2023 Tobacco use and exposure Smokeless tobacco non-user [facility] Start: 12-30-2023 End: 07-18-2024 Alcohol intake Current drinker of alcohol (finding) [facility] Start: 07-14-2023 End: 08-17-2024 Social connection and isolation panel [facility] Work Phone: Do you belong to any clubs or organizations such as religion groups, unions, fraternal or athletic groups, or school groups? Yes [facility] Are you now , , , , never or living with a partner? [facility] How often to you hav e a drink containing alcohol? Monthly or less [facility] How many standard dr inks containing alcohol do you have on a typical day? 1 or 2 [facility] How often do you hav e 6 or more drinks on 1 occasion? Never [facility] How hard is it for y ou to pay for the very basics like food, housing, medical care, and heating Not hard at all [facility] Do you feel stress - tense, restless, nervous, or anxious, or unable to sleep at night because your mind is troubled all the time - these days [OSQ] Only a little [facility] Start: 07-14-2023 Alcohol Comment Occasional [facility] Start: 1965 Sex Assigned At Not on file [facility] Start: 04-28-2023 Tobacco smoking status NHIS Never smoked tobacco [facility] Start: 04-29-2023 End: 08-17-2024 Alcoholic beverage intake Lifetime non-drinker (finding) [facility] Start: 04-28-2023 Alcohol Comment Caffeine intake: 1-2 cups per day [facility] Clinical Notes 03-04-2021 to 08-17-2024 VERONA Fowler - 08/17/2024 2:00 PM Elizabeth Cardozo DO - 07/18/2024 11:45 AM MICHAELTAnup Kc APRN-CHING - 12/30/2023 4:00 PM EDT Note Date & Type Note Facility 08-17-2024 History of Present illness Narrative Reason for Appointment: Patient ID: Flaquito Diaz is a 59 y.o. female who presents for Gynecologic Exam Patient presents today for Annual Exam. MEDICATIONS Current Outpatient Medications Medication Instructions Wpooctrjqqc-Lajmzwomd-Kioled (Trelegy Ellipta) 100-62.5-25 MCG/ACT aerosol powder 1 puff, Daily RT ALLERGIES Allergies Allergen Reactions Cephalexin Other Reaction(s): Unknown PROBLEMS Active Ambulatory Problems Diagnosis Date Noted No Active Ambulatory Problems Resolved Ambulatory Problems Diagnosis Date Noted No Resolved Ambulatory Problems Past Medical History: Diagnosis Date Environmental allergies HISTORY PAST MEDICAL HISTORY SOCIAL HISTORY Past Medical History: Diagnosis Date Environmental allergies Social History Tobacco Use Smoking status: Never Smokeless tobacco: Not on file Substance Use Topics Alcohol use: Never Comment: Caffeine intake: 1-2 cups per day Drug use: Never FAMILY HISTORY Family History Problem Relation Name Age of Onset Cancer Mother Kidney failure Father Diabetes Father SURGICAL HISTORY Past Surgical History: Procedure Laterality Date COLPOSCOPY TONSILLECTOMY TUBAL LIGATION REVIEW OF SYSTEMS Review of Systems: Review of Systems Constitutional: Negative. HENT: Negative. Eyes: Negative. Respiratory: Negative. Cardiovascular: Negative. Gastrointestinal: Negative. Genitourinary: Negative. Musculoskeletal: Negative. Skin: Negative. Neurological: Negative. All other systems reviewed and are negative. Hematological: Negative. Endocrine: Negative. Allergic/Immunologic: Negative. OBJECTIVE Objective: Physical Exam Constitutional: Appearance: Normal appearance. Genitourinary: Right Adnexa: not tender and no mass present. Left Adnexa: not tender and no mass present. No cervical discharge. Breasts: Breasts are soft. Right: Normal. Left: Normal. HENT: Head: Normocephalic. Nose: Nose normal. Mouth/Throat: Mouth: Mucous membranes are moist. Cardiovascular: Rate and Rhythm: Normal rate. Pulmonary: Effort: Pulmonary effort is normal. Abdominal: General: Bowel sounds are normal. Palpations: Abdomen is soft. Musculoskeletal: General: Normal range of motion. Cervical back: Normal range of motion. Neurological: General: No focal deficit present. Mental Status: She is alert. Skin: General: Skin is warm and dry. Psychiatric: Mood and Affect: Mood normal. Vitals and nursing note reviewed. Exam conducted with a hedis abstractor present. Vitals: Estimated body mass index is 29.04 kg/m as calculated from the following: Height as of 04/29/23: 4' 11 . Weight as of 04/29/23: 143 lb 12.8 oz. BP: No LMP recorded. ASSESSMENT & PLAN ICD-10-CM 1. Well woman exam with routine gynecological exam Z01.419 THIN PREP TIS PAP AND HR HPV DNA 2. Breast cancer screening by mammogram Z12.31 Bilateral screening mammogram Bilateral screening mammogram 3. Osteoporosis, post-menopausal ([facility]) M81.0 DEXA bone density Annual: Patient presents today for an annual exam. Patient states she is doing well and has no complaints. Pap was obtained without difficulty and patient given mammogram/dexa scan order to have scheduled/obtained. Orders Placed This Encounter Procedures Bilateral screening mammogram DEXA bone density Follow Up: Patient is to return in one year for annual unless needed otherwise. Documented by Marly Jung MA on behalf of: VERONA Fowler documented in this encounter [facility] 07-18-2024 History of Present illness Narrative IM PROGRESS NOTE Patient - Flaquito Diaz Age - 59 [facility] 1965 [id number] ASSESSMENT & PLAN 1. Acute bronchitis, unspecified organism -appears to have upper respiratory infection or allergic reaction, which has spread to the upper airways of the long. -start prednisone burst 20 mg daily x5 days -inhaler routinely for the next 5-7 days -may continue OTC [place] or Robitussin for symptom relief -if not improving over the next 3-4 days, will need to add antibiotic. - predniSONE (DELTASONE) 20 mg tablet; Take 1 tablet (20 mg total) by mouth in the morning for 5 days. Dispense: 5 tablet; Refill: 0 - orsiqyytjdb-qxssbfjpk-mwfrbysu (TRELEGY ELLIPTA) 100-62.5-25 mcg blister with device; [...] Behavior: Behavior normal. Meds Current Outpatient Medications: ibiqzipdfnt-xlhqiwhmu-syhvrvqo (TRELEGY ELLIPTA) 100-62.5-25 mcg blister with device, [...] Testing No results found. Manjinder Cardozo DO., [facility] Office: [phone] documented in this encounter [facility] 12-30-2023 History of Present illness Narrative Images from the original note were not included. [address] [facility] [address] SUBJECTIVE: Patient ID: Flaquito Diaz is a [...] throat. Motrin or Tylenol as needed per electromechanical assembler guidelines for fever or pain. May continue [...] scheduled Sooner if symptoms do not improve Anup Kc APRNBERTHA 12/30/23 2205 documented in this encounter [facility] 04-09-2021 Note PROCEDURE: XR WRIST RT 2V [...] authenticated by: MANUEL ROSALES Date: 2021-04-09 17:35 [facility] 03-25-2021 Note PROCEDURE: XR WRIST RT 2V [...] authenticated by: MANUEL ROSALES Date: 2021-03-25 16:29 [facility] 03-04-2021 Note PROCEDURE: XR WRIST RT 2V [...] by: MARCELO MOON Date: 2021-03-04 14:10 [facility] Evaluation note Diagnosis Acute non-recurrent pansinusitis- Primary [facility] Diagnosis Acute bronchitis, unspecified organism- Primary documented in this encounter [facility]* Diagnosis Well woman exam with routine gynecological exam Routine gynecological examination Breast cancer screening by mammogram Osteoporosis, post-menopausal ([facility]) Senile osteoporosis documented in this encounter [facility] Attachments The following attachments cannot be sent through Care Everywhere. * Sinusitis, Adult ED ([place]) [facility] SystemInstructionsNot on file documented in [facility] Summary Purpose Family History No Family History Records FoundNo Family History Records FoundNo Family History Records Found Advance Directives No Advanced Directives Records FoundNo Advanced Directives Records FoundNo Advanced Directives Records Found Additional Source Comments INFORMATION SOURCE (unrecogn ized section and content) DATE CREATED AUTHOR 03/01/2022 [facility] DATE CREATED AUTHOR AUTHOR'S ORGANIZ ATION 07/19/2024 [facility] DATE CREATED AUTHOR AUTHOR'S ORGANIZ ATION 08/19/2024 [facility] EPIC Reason for Visit (unrecogniz ed section and content) Reason Comments Sinus Problem X2 months Reason Comments Nasal Congestion Fatigue Cough X5 days Reason Comments Gynecologic Exam Care Teams (unrecognized sec tion and content) Stakes Player Relationship Specialty Start Date End Date Kai Mendoza DO [address], [place] [address] PCP - General Family Medicine 07/14/23 Stakes Player Relationship Specialty Start Date End Date Kai Mendoza DO [address] [place] [address] PCP - General Family Medicine 07/14/23 Stakes Player Relationship Specialty Start Date End Date Leodan Ruiz MD [address] [place] [address] PCP - General Family Medicine 04/29/23 Stakes Player Relationship Specialty Start Date End Date Leodan Ruiz MD [address] [place] [address] PCP - General Family Medicine 04/29/23 FOR RECORDS PERTAINING TO PATIENTS WHO ARE [...] BE BASED ON THE PRIMARY CLINICAL RECORDS. [employer] [facility]. provides no warranty or guarantee of the accuracy or completeness of information in this document.
== END 2024-09-05 07:55 | disposition home or self-care (01) ==
LOC: MAMMO 07:54
PROVIDERS: PCP Family Medicine; Visit Provider Physician Assistant
DX: Z12.31 Encounter for screening mammogram for malignant neoplasm of breast (principal); M81.0 Age-related osteoporosis without current pathological fracture; Z80.3 Family history of malignant neoplasm of breast; Z80.8 Family history of malignant neoplasm of other organs or systems; Z80.0 Family history of malignant neoplasm of digestive organs
CPT/HCPCS: 77063; 77067

== ENCOUNTER 2024-09-19 15:27 | Outpatient (OUT) | payer OTHER, SELFPAY ==
--- NOTE | 2024-09-19 15:31 | XR_ITS ---
[address] [address] Patient Name: FLAQUITO PATINO MRN: [id number] date: 1965 Sex: F Assigned Patient Location: [facility] Current Patient Location: Accession/Order Number: [id number] Exam Date: 09/19/2024 15:40 Report Date: 09/20/2024 05:36 At the request of: KRISTAL BEATTY Procedure: XR DEXA axial skeleton EXAMINATION: XR DEXA axial skeleton HISTORY: Osteoporosis COMPARISON: DEXA bone densitometry 02/20/2022 TECHNIQUE: Dual-energy X-ray absorptiometry (DXA) was performed. FINDINGS: SPINE ANALYSIS: Average bone mineral density is 1.090 g/cm2. T-score (standard deviation relative to young adult mean): -0.7 . +4.3% change since prior study. HIP ANALYSIS: Lowest bone mineral density is within the left femoral neck, 0.745 g/cm2. T-score (standard deviation relative to young adult mean): -2.1 . -0.6% change since prior study. XR/XR DEXA axial skeleton IMPRESSION: World Health Organization Classification: Osteopenia - Moderate Fracture Risk FRAX: Cannot be calculated. Pharmacologic treatment recommendations * No uniform recommendation applies to all patients. Management plans must be individualized. * Consider initiating pharmacologic treatment in postmenopausal women and men >= 50 years of age who have the following: Primary fracture prevention: * T-score <= - 2.5 at the femoral neck, total hip, lumbar spine, 33% radius (some uncertainty with existing data) by DXA. * Low bone mass (osteopenia: T-score between - 1.0 and - 2.5) at the femoral neck or total hip by DXA with a 10-year hip fracture risk >= 3% or a 10-year major osteoporosis-related fracture risk >= 20% (i.e., clinical vertebral, hip, forearm, or proximal humerus) based on the US-adapted FRAXregistered model. Secondary fracture prevention: * Fracture of the hip or vertebra regardless of BMD [4, 5]. * Fracture of proximal humerus, pelvis, or distal forearm in persons with low bone mass (osteopenia: T-score between - 1.0 and - 2.5). The decision to treat should be individualized in persons with a fracture of the proximal humerus, pelvis, or distal forearm who do not have osteopenia or low BMD [12, 13]. Alexis MS, Reema SL, Paul KL, Luis EM, Morena KG, AJ, Radha ES. The clinician's guide to prevention and treatment of osteoporosis. Osteoporos Int. 2021;33(10):9737-0172. doi: 10.1007/y45485-853-02176-q. Epub 2021Feb 06. Erratum in: Osteoporos Int. 2021May 08;: PMID: 72309841; PMCID: [id number]. Electronically authenticated by: MANUEL ROSALES Date: 09/20/2024 05:36
== END 2024-09-19 15:28 | disposition home or self-care (01) ==
LOC: RAD 15:27
PROVIDERS: PCP Family Medicine; Visit Provider Physician Assistant
DX: Z00.00 Encounter for general adult medical examination without abnormal findings (principal); Z13.820 Encounter for screening for osteoporosis
CPT/HCPCS: 77080

== ENCOUNTER 2025-08-22 19:15 | Outpatient (REF) | payer OTHER, SELFPAY ==
--- OUTSIDE RECORDS SUMMARY | 2025-08-22 13:00 | XMS_ITS | Encounter Summary ---
Author Organization [facility] Address [address] [place] [address] Care Team Providers Care What Job Titles Mean Name Role Phone Kai Mendoza MD Primary Care Provider Reason for Visit * ReasonCommentsGynecologic Exam Encounter Details DateTypeDepartmentCare Team (Latest Contact Info)Sfftfevbowb01/11/2025 1:00 PM ESTOffice Visit [facility] [place] [address] [address] Emilee Viveros PA [address] [place], [facility]11 Well woman exam with routine gynecological exam; Encounter for screening mammogram for malignant neoplasm of breast; Postmenopausal state Social History Tobacco UseTypesPacks/DayYears UsedDateSmoking Tobacco: NeverAlcohol UseStandard Drinks/WeekCommentsNever0 (1 standard drink = 0.6 oz pure alcohol)Caffeine intake: 1-2 cups per dayCommentsNoSex and Gender InformationValueDate RecordedSex Assigned at BirthNot on fileLegal FapJpoljl87/15/2023 7:25 PM EDT Gender IdentityNot on fileSexual OrientationNot on filedocumented as of this encounter Last Filed Vital Signs Vital SignReadingTime TakenCommentsBlood Torzixpw331/7208/22/2025 1:17 PM EST Pulse--Temperature--Respiratory Rate--Oxygen Saturation--Inhaled Oxygen Concentration--Qfkfig05.2 kg (143 lb 12.8 oz)08/22/2025 1:17 PM FFQSskltr771.9 cm (4' 11 )08/22/2025 1:17 PM ESTBody Mass Index29.04110/22/2024 1:17 PM EST documented in this encounter Progress Notes * VERONA Fowler - 08/22/2025 1:00 PM EST Reason for Appointment: Patient ID: Mignon Diaz is a 60 y.o. female who presents for Gynecologic Exam Patient presents today for Annual Exam. MEDICATIONS Current Outpatient Medications Medication Instructions ergocalciferol (VITAMIN D-2) 100 mcg, Daily Dckljbdqniq-Zfntzddps-Tgjntm (Trelegy Ellipta) 100-62.5-25 MCG/ACT aerosol powder 1 puff, Daily RT Multiple Vitamin (Multi-Vitamin) tablet 1 tablet, Daily RT ALLERGIES Allergies Allergen Reactions Cephalexin Other Reaction(s): Unknown Other Reaction(s): None-it was ineffective past; not an allergy PROBLEMS Active Ambulatory Problems Diagnosis Date Noted No Active Ambulatory Problems Resolved Ambulatory Problems Diagnosis Date Noted No Resolved Ambulatory Problems Past Medical History: Diagnosis Date Environmental allergies Vitamin D deficiency HISTORY PAST MEDICAL HISTORY SOCIAL HISTORY Past Medical History: Diagnosis Date Environmental allergies Vitamin D deficiency Social History Tobacco Use Smoking status: Never [...] Objective: Physical Exam Constitutional: Appearance: Normal appearance. She is well-developed. Genitourinary: Vulva normal. Right Adnexa: not tender and no mass present. Left Adnexa: not tender and no mass present. No cervical discharge. Breasts: Breasts are soft. Right: Normal. Left: Normal. HENT: Head: Normocephalic. Nose: Nose normal. Mouth/Throat: Mouth: Mucous membranes are moist. Cardiovascular: Rate and Rhythm: Normal rate and regular rhythm. Pulmonary: Effort: Pulmonary effort is normal. Breath sounds: Normal breath sounds. Abdominal: General: Bowel sounds are normal. There is no distension. Palpations: Abdomen is soft. Tenderness: There is no abdominal tenderness. There is no guarding or rebound. Musculoskeletal: General: No swelling. Normal range of motion. Cervical back: Normal range of motion. Right lower leg: No edema. Left lower leg: No edema. Neurological: General: No focal deficit present. Mental Status: She is alert and oriented to person, place, and time. Skin: General: Skin is warm and dry. Psychiatric: Mood and Affect: Mood normal. Behavior: Behavior normal. Vitals and nursing note reviewed. Exam conducted with a size roller operator present. Vitals: Estimated body mass index is 29.04 kg/m?? as calculated from the following: Height as of this encounter: 4' 11 . Weight as of this encounter: 143 lb 12.8 oz. BP: 118/72 No LMP recorded (lmp unknown). Patient is postmenopausal. Assessment/Plan ICD-10-CM 1. Well woman exam with routine gynecological exam Z01.419 THIN PREP TIS PAP AND HR HPV DNA 2. Encounter for screening mammogram for malignant neoplasm of breast Z12.31 Bilateral screening mammogram Bilateral screening mammogram 3. Postmenopausal state Z78.0 DEXA bone density DEXA bone density Annual Exam: Patient presents today for an annual exam. Patient states she is doing well and has no complaints. Pap was obtained without difficulty. Orders Placed This Encounter Procedures Bilateral screening mammogram DEXA bone density Follow Up: Patient is to return in one year for annual unless needed otherwise. Documented by Mago Sandy MA on behalf of: VERONA Fowler documented in this encounter Plan of Treatment DateTypeDepartmentCare Team (Latest Contact Info)Vmumnhyqrqs04/17/2026 1:00 PM ESTProcedure Visit [facility] [place] [facility] [address] [place] [address] Emilee Viveros PA [address] [place] [address] NameTypePriorityAssociated DiagnosesOrder ScheduleBilateral screening mammogram ImagingRoutine Encounter for screening mammogram for malignant neoplasm of breast Expected: 08/22/2025, Expires: 10/22/2026DEXA bone densityImagingRoutine Postmenopausal state Expected: 08/22/2025 (Approximate), Expires: 08/22/2026THIN PREP TIS PAP AND HR HPV DNAPathology and CytologyRoutine Well woman exam with routine gynecological exam Ordered: 08/22/2025documented as of this encounter Visit Diagnoses Diagnosis Well woman exam with routine gynecological exam Routine gynecological examination Encounter for screening mammogram for malignant neoplasm of breast Postmenopausal state Asymptomatic postmenopausal status (age-related) (natural) documented in this encounter Care Teams Team MemberRelationshipSpecialtyStart DateEnd Date Kai Mendoza MD [address] [facility] [place] [address] PCP - GeneralFamily Hhwqwqcq51/11/25documented as of this encounter
--- OUTSIDE RECORDS SUMMARY | 2025-08-22 19:18 | XMS_ITS | Encounter Summary ---
Author Organization [facility] Address [address] [place] [address] Care Team Providers Care Webmethods Architect Name Role Phone Jese Leodan Pierce MD Primary Care Provider [phone] En[address] Details [address] [facility] infirmaryCare Team (Latest Contact Info)Qqtwckdaibm17/10/2024linisync Result Encounter [facility] External Department Unsolicited Emilee Beatty PA [address] [place] [address] Dr [place], [facility]11 Social History Tobacco UseTypesPacks/DayYears UsedDateSmoking Tobacco: NeverAlcohol UseStandard Drinks/WeekCommentsNever0 (1 standard drink = 0.6 oz pure alcohol)Caffeine intake: 1-2 cups per dayCommentsNoSex and Gender InformationValueDate RecordedSex Assigned at BirthNot on fileLegal JcnBbpxew30/15/2023 7:25 PM EDT Gender IdentityNot on fileSexual OrientationNot on filedocumented as of this encounter Plan of Treatment DateTypeDechi st. vincent infirmaryCare Team (Latest Contact Info)Bwhrghhrlyf49/17/2026 1:00 PM ESTProcedure Visit [facility] [place] OBGYAdrien [address] [place] [phone] Emilee Beatty PA [address] [place] [address] [place], [place] [id number] documented as of this encounter Procedures Procedure NamePriorityDate/TimeAssociated DiagnosisCommentsXR DEXA AXIAL LERKWTKR56/10/2024 5:36 AM EST documented in this encounter Results * XR DEXA AXIAL SKELETON (09/20/2024 5:36 AM EST)Anatomical RegionLaterality ModalityOtherSpecimen (Source)Anatomical Location / LateralityCollection Method / VolumeCollection TimeReceived Time09/20/2024 5:36 AM EST Narrative 09/20/2024 5:38 AM EST [facility] ?[address] ? [place], [place] [address] ?XRay Report ? Signed ? Patient: FLAQUITO DIAZ ? MR#: [id number] ?? : 1965 ?Acct:[id number] ?? Age/Sex: 59 / F ?ADM Date: 09/19/24 ?? Loc: RAD ? Attending Dr: Emilee Beatty ? Ordering Physician: Emilee Beatty ?? Date of Service: 09/19/24 ?? Procedure(s): XR DEXA axial skeleton ?? Accession Number(s): [id number] ? cc: Emilee Beatty; OZIEL ELLSWORTH ? [facility] ? [address] [facility] ? [place] [address] ? Patient Name: ?? FLAQUITO DIAZ ? MRN: [facility]:[id number] ? date: 1965 ?Sex: F ?? Assigned Patient Location: RAD ?? Current Patient Location: ? Accession/Order Number: [id number] ?? Exam Date: 09/19/2024 ??15:40 ?Report Date: 09/20/2024 ??05:36 ? At the request of: ?? EMILEE ??ROGERIO ? Procedure: ??XR DEXA axial skeleton ? EXAMINATION: XR DEXA axial skeleton ? HISTORY: Osteoporosis ? COMPARISON: DEXA bone densitometry 02/20/2022 ? TECHNIQUE: Dual-energy X-ray absorptiometry (DXA) was performed. ? FINDINGS: ?? SPINE ANALYSIS: ?? Average bone mineral density is 1.090 g/cm2. ?? T-score (standard deviation relative to young adult mean): -0.7 . ?? +4.3% change since prior study. ? HIP ANALYSIS: ?? Lowest bone mineral density is within the left femoral neck, 0.745 g/cm2. ?? T-score (standard deviation relative to young adult mean): -2.1 . ?? -0.6% change since prior study. ? XR/XR DEXA axial skeleton ?? IMPRESSION: ? World Health Organization Classification: Osteopenia - Moderate Fracture Risk ?? FRAX: Cannot be calculated. ? Pharmacologic treatment recommendations ?? * No uniform recommendation applies to all patients. Management plans must be ?? individualized. ?? * Consider initiating pharmacologic treatment in postmenopausal women and men ?? >= 50 years of age who have the following: Primary fracture prevention: ?? * T-score <= - 2.5 at the femoral neck, total hip, lumbar spine, 33% radius (some uncertainty with existing data) by DXA. ?? * Low bone mass (osteopenia: T-score between - 1.0 and - 2.5) at the femoral ?? neck or total hip by DXA with a 10-year hip fracture risk >= 3% or a 10-year major osteoporosis-related fracture risk >= 20% (i.e., clinical vertebral, hip, ?? forearm, or proximal humerus) based on the US-adapted FRAXregistered model. ?? Secondary fracture prevention: ?? * Fracture of the hip or vertebra regardless of BMD [4, 5]. ?? * Fracture of proximal humerus, pelvis, or distal forearm in persons with low ?? bone mass (osteopenia: T-score between - 1.0 and - 2.5). The decision to treat ? should be individualized in persons with a fracture of the proximal humerus, ?? pelvis, or distal forearm who do not have osteopenia or low BMD [12, 13]. ?? lAexis MS, Reema SL, Paul KL, Luis EM, Morena KG, AJ, Radha ?? ES. ?? The clinician's guide to prevention and treatment of osteoporosis. Osteoporos ?? Int. 2021;33(10):8325-3753. doi: 10.1007/d44646-290-94671-n. Epub 2022 Apr ? 28. Erratum in: Osteoporos Int. 2021May 08;: PMID: [id number]; PMCID: ?? [id number]. ? Electronically authenticated by: JERZY ??BOBBY ?? Date: 09/20/2024 ??05:36 ? Dictated By: ?Jerzy Orellana M.D. ? Signed By: ?/08/04 0538 ? DD/ 0536 ? TD/TT: ? Instructor Watch Assembly: Procedure Note Radiology, Radiologist, MD - 12/10/[address] [address] XRay Report Signed Patient: FLAQUITO DIAZ MMR#: [id number] : 1965Acct:[id number] Age/Sex: 59 / FADM Date: 09/19/24 Loc: RAD Attending Dr: Emilee Beatty Ordering Physician: Emilee Beatty Date of Service: 09/19/24 Procedure(s): XR DEXA axial skeleton Accession Number(s): [id number] cc: Emilee Beatty; OZIEL ELLSWORTH [address] [address] Patient Name: FLAQUITO DIAZ MRN: [id number] date: 1965 Sex: F Assigned Patient [facility]: [facility] Current Patient Location: Accession/Order Number: [id number] Exam Date: 09/19/2024 15:40 Report Date: 09/20/2024 05:36 At the request of: EMILEE BEATTY Procedure: XR DEXA axial skeleton EXAMINATION: XR DEXA axial skeleton HISTORY: Osteoporosis COMPARISON: DEXA bone densitometry 02/20/2022 TECHNIQUE: Dual-energy X-ray absorptiometry (DXA) was performed. FINDINGS: SPINE ANALYSIS: Average bone mineral density is 1.090 g/cm2. T-score (standard deviation relative to young adult mean): -0.7 . +4.3% change since prior study. HIP ANALYSIS: Lowest bone mineral density is within the left femoral neck, 0.745 g/cm2. T-score (standard deviation relative to young adult mean): -2.1 . -0.6% change since prior study. XR/XR DEXA axial skeleton IMPRESSION: World Health Organization Classification: Osteopenia - Moderate FractureRisk FRAX: Cannot be calculated. Pharmacologic treatment recommendations * No uniform recommendation applies to all patients. Management plans mustbe individualized. * Consider initiating pharmacologic treatment in postmenopausal women andmen >= 50 years of age who have the following: Primary fracture prevention: * T-score <= - 2.5 at the femoral neck, total hip, lumbar spine, 33%radius (some uncertainty with existing data) by DXA. * Low bone mass (osteopenia: T-score between - 1.0 and - 2.5) at thefemoral neck or total hip by DXA with a 10-year hip fracture risk >= 3% or s13-prdx major osteoporosis-related fracture risk >= 20% (i.e., clinical vertebral, hip, forearm, or proximal humerus) based on the US-adapted FRAXregisteredmodel. Secondary fracture prevention: * Fracture of the hip or vertebra regardless of BMD [4, 5]. * Fracture of proximal humerus, pelvis, or distal forearm in persons withlow bone mass (osteopenia: T-score between - 1.0 and - 2.5). The decision totreat should be individualized in persons with a fracture of the proximalhumerus, pelvis, or distal forearm who do not have osteopenia or low BMD [12, 13]. Alexis MS, Reema SL, Paul KL, Luis EM, Morena KG, AJ,Radha ES. The clinician's guide to prevention and treatment of osteoporosis.Osteoporos Int. 2021;33(10):9385-9545. doi: 10.1007/p64761-344-59528-b. Ep. Erratum in: Osteoporos Int. 2021May 08;: PMID: [id number]; PMCID: [id number]. Electronically authenticated by: JERZY ORELLANA Date: 09/20/2024 05:36 Dictated By: Jerzy Orellana M.D. Signed By:09/20/2438 DD/ TD/TT: Instructor Watch Assembly: Authorizing ProviderResult TypeResult StatusAmy Rogerio PACLINISYNC IMAGINGFinal Result documented in this encounter Visit Diagnoses Not on filedocumented in this encounter Care Teams Team MemberRelationshipSpecialtyStart DateEnd Date Leodan Sawant MD PCP - GeneralFamily Medicine04/29/2311documented as of this encounter
--- OUTSIDE RECORDS SUMMARY | 2025-08-22 19:18 | XMS_ITS | Encounter Summary ---
Author Organization [facility] Address [address] [place] [address] Care Team Providers Care Topstitcher Lockstitch Name Role Phone Jese, Leodan Pierce MD Primary Care Provider [phone] Encounter Details DateTypeDede queen medical centerCare Team (Latest Contact Info)Aqfesepfdbc92/26/2024Clinisync Result Encounter [facility] External Department Unsolicited Emilee Viveros PA [address] [place] [address] [place], [place] [address] Social History Tobacco UseTypesPacks/DayYears UsedDateSmoking Tobacco: NeverAlcohol UseStandard Drinks/WeekCommentsNever0 (1 standard drink = 0.6 oz pure alcohol)Caffeine intake: 1-2 cups per dayCommentsNoSex and Gender InformationValueDate RecordedSex Assigned at BirthNot on fileLegal FedUrfylq29/15/2023 7:25 PM EDT Gender IdentityNot on fileSexual OrientationNot on filedocumented as of this encounter Plan of Treatment DateTypeDede queen medical centerCare Team (Latest Contact Info)Oaknnlsvvfr69/17/2026 1:00 PM ESTProcedure Visit [facility] [address] [facility] [place] [address] Emilee Viveros PA [address] [place] [address] [place], [facility]11 documented as of this encounter Procedures Procedure NamePriorityDate/TimeAssociated DiagnosisCommentsMM TOMOSYNTHESIS SCREENING BI09/06/2024 1:56 PM EST documented in this encounter Results * MM TOMOSYNTHESIS SCREENING BI (09/06/2024 1:56 PM EST)Anatomical Region LateralityModalityOtherSpecimen (Source)Anatomical Location / Laterality Collection Method / VolumeCollection TimeReceived Time09/06/2024 1:56 PM EST Narrative 09/06/2024 1:57 PM EST [facility] ?[address] ? [place], [place] [address] ? Mammography Report ? Signed ? Patient: SHARON DIAZN Lilliana ? MR#: [id number] ?? : 1965 ?Acct:[id number] ?? Age/Sex: 59 / F ?ADM Date: 09/05/24 ?? Loc: MAMMO ? Attending Dr: Emilee Viveros ? Ordering Physician: Emilee Viveros ?Results: ? Date of Service: 09/05/24 ?Follow Up: ? Procedure(s): MM tomosynthesis screening BI ?? Accession Number(s): [id number] ? cc: Emilee Viveros; OZIEL ELLSWORTH ? Patient Name: ? MIGNON DIAZ ? MR#: [id number] ? : 1965 ? Exam Date: 09/05/2024 ?? Ordering Doctor: VERONA Viveros . ? RADIOLOGY REPORT ? PROCEDURE: ? MM TOMOSYNTHESIS SCREENING BI ? COMPARISON: ? MM TOMOSYNTHESIS SCREENING BI, 07/21/2023. ??MG MAMM SCREEN 3D ?? COLLEEN CAD, 02/20/2022. ??MG MAMM SCREEN COLLEEN W CAD, 08/21/2020. ??MG MAMM COLLEEN SCRN W ?? CAD DIG, 02/05/2011. ? INDICATIONS: ? Screening ? Calculator Name ? NCI Breast Cancer Risk Assessment Tool ?? 5 Year Breast Cancer Risk ? 2.90% ?? Lifetime Breast Cancer Risk ? 14.40% ?? Personal Breast Cancer ?No ?? Personal Ovarian Cancer ? No ?? Treatments ? None ?? Family Cancers ? Mother with breast cancer at age ??58; Aunt-maternal with ?? breast cancer at age 82; Grandfather-maternal with skin cancer at age 60; ?? Uncle-maternal with stomach cancer at age ??40. ? LOCATION: ? [facility] ? BREAST COMPOSITION: ? The breasts are extremely dense, which lowers the ?? sensitivity of mammography. ? FINDINGS: ? DIAGNOSTIC CATEGORY 1--NEGATIVE. ? RIGHT BREAST: ??No significant suspicious finding. ??No significant change has ?? occurred. ? LEFT BREAST: ??No significant suspicious finding. ??No significant change has ?? occurred. ? RECOMMENDATIONS: ? ROUTINE MAMMOGRAM AND CLINICAL EVALUATION IN 12 MONTHS. ? PLEASE NOTE: ??A NORMAL MAMMOGRAM DOES NOT EXCLUDE THE POSSIBILITY OF BREAST ?? CANCER. ??A CLINICALLY SUSPICIOUS PALPABLE LUMP SHOULD BE BIOPSIED. ? Dictated by: Jerzy Orellana M.D. on 09/06/2024 at 13:52 ? Approved by: Jerzy Orellana M.D. on 09/06/2024 at 13:56 ? Dictated By: ?Jerzy Orellana M.D. ? Signed By: ?09/06/24 1357 ? DD/ ? TD/TT: ? Local Delivery Truck Driver: Procedure Note Radiology, Radiologist, MD - 09/06/[address] [address] Mammography Report Signed Patient: MIGNON DIAZ MMR#: [id number] : 1965Acct:[id number] Age/Sex: 59 / FADM Date: 09/05/24 Loc: MAMMO Attending Dr: Emilee Viveros Ordering Physician: Emilee RameyResults: Date of Service: 09/05/24Follow Up: Procedure(s): MM tomosynthesis screening BI Accession Number(s): [id number] cc: Emilee Viveros; OZIEL ELLSWORTH Patient Name: MIGNON DIAZ MR#: [id number] : 1965 Exam Date: 09/05/2024 Ordering Doctor: VERONA Viveros . RADIOLOGY REPORT PROCEDURE: MM TOMOSYNTHESIS SCREENING BI COMPARISON: MM TOMOSYNTHESIS SCREENING BI, 07/21/2023. MG MAMM TEEEKN9S COLLEEN CAD, 02/20/2022. MG MAMM SCREEN COLLEEN W CAD, 08/21/2020. MG MAMM BILSCRN W CAD DIG, 02/05/2011. INDICATIONS: Screening Calculator Name NCI Breast Cancer Risk Assessment Tool 5 Year Breast Cancer Risk 2.90% Lifetime Breast Cancer Risk 14.40% Personal Breast Cancer No Personal Ovarian Cancer No Treatments None Family Cancers Mother with breast cancer at age 58; Aunt-maternalwith breast cancer at age 82; Grandfather-maternal with skin cancer at age 60; Uncle-maternal with stomach cancer at age 40. LOCATION: [facility] BREAST COMPOSITION: The breasts are extremely dense, which lowers the sensitivity of mammography. FINDINGS: DIAGNOSTIC CATEGORY 1--NEGATIVE. RIGHT BREAST: No significant suspicious finding. No significant changehas occurred. LEFT BREAST: No significant suspicious finding. No significant changehas occurred. RECOMMENDATIONS: ROUTINE MAMMOGRAM AND CLINICAL EVALUATION IN 12 MONTHS. PLEASE NOTE: A NORMAL MAMMOGRAM DOES NOT EXCLUDE THE POSSIBILITY OFBREAST CANCER. A CLINICALLY SUSPICIOUS PALPABLE LUMP SHOULD BE BIOPSIED. Dictated by: Jerzy Orellana M.D. on 09/06/2024 at 13:52 Approved by: Jerzy Orellana M.D. on 09/06/2024 at 13:56 Dictated By: Jerzy Orellana M.D. Signed By:09/06/24 1357 DD/ 1356 TD/TT: Local Delivery Truck Driver: Authorizing ProviderResult TypeResult StatusAmy [place] PACLINISYNC IMAGINGFinal Result documented in this encounter Visit Diagnoses Not on filedocumented in this encounter Care Teams Team MemberRelationshipSpecialtyStart DateEnd Date Leodan Sawant MD PCP - GeneralFamily Medicine04/29/2311documented as of this encounter
--- OUTSIDE RECORDS SUMMARY | 2025-08-22 19:18 | XMS_ITS | Clinical Summary ---
Author Organization [facility] Address [address] [place] [address] Care Team Providers Care Catalyst Supervisor Name Role Phone Kai Ellsworth MD Primary Care Provider Allergies Active AllergyReactionsCriticalityNoted BjpyZjdzqjziRhbzitjcwk26/19/2023 Other Reaction(s): Unknown Other Reaction(s): None-it was ineffective past; not an allergy Medications MedicationSigDispense QuantityRefillsLast FilledStart DateEnd DateStatus Wedtidgeiku-Vvdirtvuv-Fxudhi (Trelegy Ellipta) 100-62.5-25 MCG/ACT aerosol powder Inhale 1 puff in the morning.4Active Multiple Vitamin (Multi-Vitamin) tablet Take 1 tablet by mouth in the morning.5Active ergocalciferol (Vitamin D-2) 200 MCG/ML drops Take 100 mcg by mouth DailyActive Encounters DateTypeDepartmentCare HwaeXyuoqxpyluv86/11/2025 1:00 PM ESTOffice Visit [facility] [address] [place] [address] [place] [address] Emilee Viveros PA Well woman exam with routine gynecological exam; Encounter for screening mammogram for malignant neoplasm of breast; Postmenopausal state08/22/2025amboo flowsheet [facility] [address] [facility] [address] Emilee Viveros PA from Last 3 Months Family History Medical HistoryRelationNameCommentsDiabetesFatherKidney failureFatherCancer MotherRelationNameStatusCommentsFatherDeceasedMotherDeceased Social History Tobacco UseTypesPacks/DayYears UsedDateSmoking Tobacco: Never Tobacco Cessation:Counseling Given: Not Answered Alcohol UseStandard Drinks/WeekCommentsNever0 (1 standard drink = 0.6 oz pure alcohol)Caffeine intake: 1-2 cups per dayCommentsNoSex and Gender InformationValueDate RecordedSex Assigned at BirthNot on fileLegal SexFemale 12/24/2022 7:25 PM EDTGender IdentityNot on fileSexual OrientationNot on file Last Filed Vital Signs Vital SignReadingTime TakenCommentsBlood Lmhlhhcr639/7208/22/2025 1:17 PM EST Pulse--Temperature--Respiratory Rate--Oxygen Saturation--Inhaled Oxygen Concentration--Ockrrn09.2 kg (143 lb 12.8 oz)08/22/2025 1:17 PM XFSJoarea641.9 cm (4' 11 )08/22/2025 1:17 PM ESTBody Mass Index29.04110/22/2024 1:17 PM EST Plan of Treatment DateTypeDepartmentCare Team (Latest Contact Info)Kytncjzjcbp38/17/2026 1:00 PM ESTProcedure Visit [facility] [address] [facility] [place] [phone] Emilee Viveros PA [address] [facility] [address] [place], [place] [id number] Health MaintenanceDue DateLast DoneCommentsCT Fjhgofgjftgs1965FIT-DNA 1965FIT1965FOBT1965 2855Xqwoxphrvwdbh1965COVID-19 Vaccine ( season)/07/2022, 03/15/2021, 02/22/2021Influenza Vaccine (#1)/11/2023, 07/30/2022, 07/17/2020, Additional history exists Bwuaneetd08, 07/23/2023ervical Cancer Dmzttysfe31/11/2028 HPV/Tdeumd53/ap Smear/11/0727Fajscuigjdk52/07/2030 11/18/2019Colorectal Cancer Eckkkxweb33/07/2030Pneumococcal Vaccine: Pediatrics (0 to 5 Years) and At-Risk Patients (6 to 64 Years)Aged OutNo longer eligible based on patient's age to complete this topic Procedures Procedure NamePriorityDate/TimeAssociated DiagnosisCommentsMM TOMOSYNTHESIS SCREENING BI09/06/2024 1:56 PM EST THINPREP PAP AND HPV MRNA E6/E7 W/RFL HPV 16,18/17Orlozof66/11/2023 11:58 AM EDT Well woman exam with routine gynecological exam PAP SVFEOLvfizac55/11/2023 12:00 AM BDZNOHOUNOCZEUObtrizg59/07/2020 12:00 PM EST from Last 3 Months or Most Recently Relevant to Health Maintenance Results * MM TOMOSYNTHESIS SCREENING BI (09/06/2024 1:56 PM EST)Anatomical Region LateralityModalityOtherSpecimen (Source)Anatomical Location / Laterality Collection Method / VolumeCollection TimeReceived Time09/06/2024 1:56 PM EST Narrative 09/06/2024 1:57 PM EST [facility] ?[address] ? [place] [address] ? Mammography Report ? Signed ? Patient: CAREY,MIGNON M ? MR#: [id number] ?? : 1965 ?Acct:[id number] ?? Age/Sex: 59 / F ?ADM Date: 09/05/ ?? Loc: MAMMO ? Attending Dr: Emilee Viveros ? Ordering Physician: Emilee Viveros ?Results: ? Date of Service: 09/05/ ?Follow Up: ? Procedure(s): MM tomosynthesis screening BI ?? Accession Number(s): [id number] ? cc: Emilee Viveros; KAI ELLSWORTH ? Patient Name: ? MIGNON DIAZ ? MR#: [id number] ? : 1965 ? Exam Date: 09/05/2024 [...] at age ??39. ? LOCATION: ? [facility] ? BREAST COMPOSITION: ? The breasts [...] By: ?Jerzy Orellana M.D. ? Signed By: ?//24 1357 ? DD/ 1356 ? TD/TT: ? Park Landscape Architect: Procedure Note Radiology, Radiologist, MD - 09/06/2024 [place] [address] Mammography Report Signed Patient: MIGNON DIAZ MMR#: [id number] : 1965Acct:[id number] Age/Sex: 59 / FADM Date: 09/05/24 Loc: MAMMO Attending Dr: Emilee Viveros Ordering Physician: Emilee ViverosResults: Date of Service: 09/05/24Follow Up: Procedure(s): MM tomosynthesis screening BI Accession Number(s): [id number] cc: Emilee Viveros; KAI ELLSWORTH Patient Name: MIGNON DIAZ MR#: [id number] : 1965 Exam Date: 09/05/2024 Ordering Doctor: VERONA Viveros . RADIOLOGY REPORT PROCEDURE: MM TOMOSYNTHESIS SCREENING BI COMPARISON: MM TOMOSYNTHESIS SCREENING BI, 07/21/2023. MG MAMM KWLNIU2A COLLEEN CAD, 02/20/2022. MG MAMM SCREEN COLLEEN [...] stomach cancer at age 39. LOCATION: [facility] BREAST COMPOSITION: The breasts are extremely [...] M.D. Signed By:09/06/24 1357 DD/ 1356 TD/TT: Park Landscape Architect: Authorizing ProviderResult TypeResult StatusAmy [place] PACLINISYNC IMAGINGFinal Result * THINPREP PAP AND HPV MRNA E6/E7 W/RFL HPV 16,18/45 (05/22/2023 11:58 AM EDT) Narrative Authorizing ProviderResult TypeResult StatusAmy [place] PALAB BLOOD ORDERABLES Final ResultPerforming OrganizationAddressCity/State/ZIP CodePhone Number EXTERNAL LAB * Pap Smear (05/22/2023 12:00 AM EDT)Specimen (Source)Anatomical Location / LateralityCollection Method / VolumeCollection TimeReceived TimeSwabCervical swab / Unknown Narrative Authorizing ProviderResult TypeResult StatusAmy Jackeline PALAB CYTOLOGY ORDERABLES Final ResultPerforming OrganizationAddressCity/State/ZIP CodePhone Number EXTERNAL LAB * Colonoscopy (11/18/2019 12:00 PM EST)Anatomical RegionLateralityModality EndoscopySpecimen (Source)Anatomical Location / LateralityCollection Method / VolumeCollection TimeReceived Time11/18/2019 12:00 PM EST Narrative 11/18/2019 12:00 PM EST PERFORMED AT [facility] LOCATION:[id number] Procedure Note CONVERSION, GENERIC - 02/25/2023 PERFORMED AT [facility] LOCATION:[id number] Authorizing ProviderResult TypeResult StatusJair Gomes MDENDOSCOPY PROCEDURE ORDERABLESFinal Result from Last 3 Months or Most Recently Relevant to Health Maintenance Insurance * Guarantor: Yumiko Diaz TypeRelation to PatientDate of BirthPhone Billing AddressPersonal/VnmklxVbof1965 [address] [address] Care Teams Team MemberRelationshipSpecialtyStart DateEnd Date Kai Ellsworth MD [address] [facility], [place] [address] PCP - GeneralFamily Uhsbborx59/11/25
--- OUTSIDE RECORDS SUMMARY | 2025-08-22 19:18 | XMS_ITS | Encounter Summary ---
Author Organization [facility] Address [address] [place] [address] Care Team Providers Care Professor Of Spanish Name Role Phone Kai Mendoza MD Primary Care Provider Encounter Details DateTypeDepartmentCare Team (Latest Contact Info)Xgvxvvamgqp52/11/2025amboo flowsheet [facility] [address] [facility] [address] Emilee Viveros PA [address] [facility] [address] [place], [place] [address] Social History Tobacco UseTypesPacks/DayYears UsedDateSmoking Tobacco: NeverAlcohol UseStandard Drinks/WeekCommentsNever0 (1 standard drink = 0.6 oz pure alcohol)Caffeine intake: 1-2 cups per dayCommentsNoSex and Gender InformationValueDate RecordedSex Assigned at BirthNot on fileLegal ZpnEmtwtd36/15/2023 7:25 PM EDT Gender IdentityNot on fileSexual OrientationNot on filedocumented as of this encounter Plan of Treatment DateTypeDepartmentCare Team (Latest Contact Info)Hahdewzxgnz26/17/2026 1:00 PM ESTProcedure Visit [facility] [address] [facility] [address] Emilee Viveros, PA [address] [facility] [address] [place], [facility]11 documented as of this encounter Visit Diagnoses Not on filedocumented in this encounter Care Teams Team MemberRelationshipSpecialtyStart DateEnd Date Kai Mendoza MD [address] [facility] [address] PCP - GeneralFamily Rnwvyaqu76/11/25documented as of this encounter
--- OUTSIDE RECORDS SUMMARY | 2025-08-22 19:19 | XMS_ITS | CCD ---
Author Organization [facility] Care Team Providers Care Overlock Operator Name Role Phone SHILA WALKER Attending Unavailable SARAI, DR MARCELO Harvey Consulting Unavailable REQUEST, NONE LISTED Primary Care Unavaila ble AARON, SHILA Admitting Unavailable AARON, SHILA Consulting Unavailable AARON, SHILA Admitting Unavailable AARON, SHILA Attending Unavailable ZIEBER, DR JERZY Irby Consulting Unavailable REQUEST, NONE LISTED Primary Care Unavaila ble AARON, SHILA Consulting Unavailable ZIEBER, DR JERZY Irby Consulting Unavailable REQUEST, NONE LISTED Primary Care Unavaila ble OLEXA, MITCHELL Admitting Unavailable OLEXA, MITCHELL Attending Unavailable OLEXA, MITCHELL Consulting Unavailable SPENCER, DR HUNTER Admitting Unavailable REQUEST, NONE LISTED Primary Care Unavaila ble SPENCER, DR HUNTER Attending Unavailable SPENCER, DR HUNTER Consulting Unavailable SARA, DR GOTTLIEB Primary Care Unavailable SARAI, DR MARCELO Harvey Consulting Unavailable SPENCER, DR HUNTER Admitting Unavailable SPENCER, DR HUNTER Attending Unavailable SPENCER, DR HUNTER Consulting Unavailable ZIEBER, DR JREZY Irby Consulting Unavailable Leodan Sawant MD Primary Care Provider EMILEE BEATTY Attending Unavailable Furlong Kai HOBBS Primary Care Provider [phone] Furlong Kai HOBBS Primary Care Provider [phone] MANJINDER CARDOZO Attending Unavailable FURLONGKAI Referring Unavailable FURLONG, KAI Thomas Primary Care Unavailable FURLONG, KAI Thomas Attending Unavailable FURLONG, KAI Thomas Referring Unavailable FURLONG, KAI Thomas Primary Care Unavailable FURLONG, KAI Thomas Attending Unavailable FURLONG, KAI Thomas Referring Unavailable FURLONG, KAI Thomas Primary Care Unavailable FURLONG, KAI Thomas Attending Unavailable FURLONG, KAI G Referring Unavailable KAI MENDOZA Primary Care Unavailable Leodan Sawant MD Primary Care Provider Allergies Allergy ClassificationReported Allergen(s)Allergy TypeDate of OnsetReaction(s) Facility (1 source)CephalexinDrug AllergyThe [facility] (14 sources)Cephalexin; Translations: [CEPHALEXIN]Drug Aapaxfo59-26-2137[facility] Work Phone: Medications Current Medications MedicationDrug Class(es)DatesSig (Normalized)Sig (Original)amoxicillin 875 mg oral tablet (3 sources)Penicillin-class AntibacterialStart: 11-23-2024 End: 93-47-5390syok 1 tablet by mouth in the morning, then take 1 tablet by mouth at bedtimeamoxicillin (AMOXIL) 875 mg tablet Take 1 tablet (875 mg total) by mouth in the morning and 1 tablet (875 mg total) before bedtime. Do all this for 7 days. 14 tablet 11/23/2024 11/23/2024 Discontinued (Reorder)azithromycin 250 mg oral tablet (1 source)Macrolide AntimicrobialStart: 12-30-2023 End: 10-16-1651gjywcpuucnxc (ZITHROMAX) 250 mg tablet Indications: Acute non- recurrent pansinusitis Take 2 tabletsthe first day, then 1 tablet daily for 4 days. 6 tablet 0 12/30/2023 01/03/2024 Activebenzonatate 200 mg oral capsule (2 sources)Non-narcotic AntitussiveStart: 11-21-2024 End: 97-63-1983bjeb 1 capsule by mouth three times daily as needed for cough benzonatate (TESSALON PERLES) 200 mg capsule Take 1 capsule (200 mg total) by mouth 3 (three) timesa day as needed for cough. 30 capsule 11/21/2024 11/23/2024 Discontinued (Ineffective)fluticasone propionate 0.05 mg/actuat metered dose nasal spray (1 source)Corticosteroidtake 1 spray(s) nasal route in the morningfluticasone propionate (FLONASE) 50 mcg/actuation nasal spray Administer 1 spray into each nostril in the morning. Xckutl95 actuat fluticasone furoate 0.1 mg/actuat / umeclidinium 0.0625 mg/actuat / vilanterol 0.025 mg/actuat dry powder inhaler (11 sources)Anticholinergic, Corticosteroid, beta2-Adrenergic AgonistStart: 07-18-2024 End: 12-19-8776sywf 1 puff(s) by inhalation in the morning Imbyqsfutir-Awhyokqgh-Yveawo (Trelegy Ellipta) 100-62.5-25 MCG/ACT aerosol powder Inhale 1 puff in the morning. 07/18/2024 ActivemethylPREDNISolone 4 mg oral tablet (4 sources)CorticosteroidStart: 11-14-2024 End: 05-87-2673lmko 1 tablet by mouth in the morningmethylPREDNISolone (MEDROL, CATHERINE,) 4 mg tablet Take 1 tablet (4 mg total) by mouth in the morning. follow package directions. 21 tablet 11/14/2024 11/23/2024 Discontinued (Dose adjustment)multivitamin tablet (1 source)Start: 46-95-2770mlmo 1 tablet by mouth in the morningmultivitamin tablet Take 1 tablet by mouth in the morning. 03/20/2025 ActivepredniSONE 20 mg oral tablet (1 source)Start: 07-18-2024 End: 85-88-5233vbqa 1 tablet by mouth in the morningpredniSONE (DELTASONE) 20 mg tablet Indications: Acute bronchitis, unspecified organism Take 1 tablet (20 mg total) by mouth in the morning for 5 days. 5 tablet 07/18/2024 07/23/2024 Active Completed/Discontinued Medications MedicationDrug Class(es)DatesSig (Normalized)Sig (Original)brompheniramine maleate 0.4 mg/ml / dextromethorphan hydrobromide 2 mg/ml / pseudoephedrine hydrochloride 6 mg/ml oral solution (5 sources)alpha-Adrenergic Agonist, Uncompetitive A-nhuzyt-F-aspartate Receptor Antagonist, Sigma-1 AgonistStart: 11-14-2024 End: 75-44-7203yuxn 10 mL by mouth four times daily as needed for cough sbceohbtqxvyygo-vrwpueqap-VY (BROMFED DM) 2-30-10 mg/5 mL syrup Take 10 mL by mouth 4 (four) times a day as needed for congestion or cough. 473 mL 11/14/2024 03/20/2025 Discontinued (Therapy completed) Problems Active Problems Problem ClassificationProblemDateDocumented DateEpisodic/ChronicImmunizations and screening for infectious disease (3 sources)Encounter for screening for human papillomavirus (HPV); Translations: [Vaccination needed]Onset: 044267-97-9918XlsbqtggBggbwccaoxwi (2 sources)Postmenopausal osteoporosis; Translations: [Age-related osteoporosis without current pathological fracture]21-91-1328QwmsoslTozrf bone disease and musculoskeletal deformities (1 source)Other specified disorders of bone density and structure, unspecified site; Translations: [OTH D/O BONE DEN STRUCT UNS SITE]Onset: 97-96-0797Ylydepyo Other bone disease and musculoskeletal deformities (1 source)Osteopenia; Translations: [Other specified disorders of bone density and structure, left thigh]57-03-2225KqchkaaaZhdlh bone disease and musculoskeletal deformities (1 source)Other specified disorders of bone density and structure, left thigh; Translations: [Other specifieddisorders of bone density and structure, left thigh]Onset: 43-87-1072YnlclwcxMbshl nutritional; endocrine; and metabolic disorders (1 source)Overweight; Translations: [Overweight]79-53-9487VzzazgcbFcnab nutritional; endocrine; and metabolic disorders (1 source)Overweight; Translations: [Overweight]Onset: 00-68-6283QxxqwaadUfsge screening for suspected conditions (not mental disorders or infectious disease) (7 sources)Encounter for screening mammogram for malignant neoplasm of breast; Translations: [Encounter for screening for malignant neoplasm of cervix]Onset: 35-23-1734MagfcgvcQzwdjfue codes; unclassified (4 sources)Asymptomatic menopausal state; Translations: [ASYMPTOMATIC MENOPAUSAL STATE]Onset: 84-55-3300RoqttfxcDdlxhorq codes; unclassified (1 source)Family history of malignant neoplasm of breast; Translations: [FAMILY HX MALIG NEOPLASM OF BREAST]Onset: 36-85-3641GjhuhjqcTddndmde codes; unclassified (1 source)Family history of malignant neoplasm of digestive organs; Translations: [FAM HX MALIG NEOPLASM DIGESTIV ORGN]Onset: 54-94-1821Opjdrbse Unclassified (1 source)Annual ExamOnset: 00-86-4040Uggpiqgxngiq (1 source)Sinus ProblemOnset: 11-14-2024 Past or Other Problems Problem ClassificationProblemDateDocumented DateEpisodic/ChronicAcute bronchitis (2 sources)Acute bronchitis; Translations: [Acute bronchitis, unspecified]Onset: 385370-10-5173JfwalqueIectnddt of upper limb (4 sources)Other fractures of lower end of right radius, subsequent encounter for closed fracture with routinehealing; Translations: [OTH FX LOW RT RADUS SUB CLOS FX RTN]Onset: 84-36-6382HhzckjryLouppbrzn (2 sources)Influenza due to Influenza A virus; Translations: [Influenza due to other identified influenza virus with other respiratory manifestations]Onset: 831745-78-7882XxglzizuBklmihi and fatigue (1 source)FatigueOnset: 70-08-9915OyxcgsdkLppi disorders (7 sources)Mood disordersOnset: 11-14-2024 Resolved: Other lower respiratory disease (1 source)CoughOnset: 45-61-1073WpowhkkdBorin non-traumatic joint disorders (4 sources)Pain in right wrist; Translations: [PAIN IN RIGHT WRIST]Onset: 81-51-1504EdumffmtMuipu upper respiratory disease (1 source)Nasal congestionOnset: 42-51-6089NjufoygtBbteb upper respiratory infections (3 sources)Acute maxillary sinusitis; Translations: [Acute maxillary sinusitis, unspecified]Onset: 554620-43-1100TyqwloruOvadiezlyiel (7 sources)Onset: 12-30-2023 Resolved: Results Test NameValueInterpretationReference RangeFacilityCOMPREHENSIVE METABOLIC PANEL on 53-59-2169Xykjuva [Mass/Vol]4.6 g/dLNormal3.2-5.3PMarietta Memorial Hospital Ambulatory PPGComment on above:Performed By: #### CMP #### [facility] ([facility]) [address] [place] [address] VIRALP [Catalytic activity/Vol]84 U/JVubaou22-698ZivKgokcd Hospital Ambulatory PPGComment on above:Performed By: #### CMP #### [facility] ([facility]) [address] [place] [address] VIRALT [Catalytic activity/Vol]17 U/LNormal<=31PMarietta Memorial Hospital Ambulatory PPGComment on above:Performed By: #### CMP #### [facility] ([facility]) [address] [place] [address] VIRAnion gap [Moles/Vol]10 mmol/LNormal5-15[facility] Ambulatory PPGComment on above:Performed By: #### CMP #### [facility] ([facility]) [address] [place] [address] VIRAST [Catalytic activity/Vol]24 U/LNormal<=41[facility] Ambulatory PPGComment on above:Performed By: #### CMP #### [facility] ([facility]) [address] [place] [address] VIRBilirubin [Mass/Vol]0.6 mg/dLNormal0.3-1.2PMarietta Memorial Hospital Ambulatory PPGComment on above:Performed By: #### CMP #### [facility] ([facility]) [address] [place] [address] VIRCalcium [Mass/Vol]9.6 mg/dLNormal8.5-10.5PMarietta Memorial Hospital Ambulatory PPGComment on above:Performed By: #### CMP #### [facility] ([facility]) [address] [place] [address] VIRChloride [Moles/Vol]103 mmol/YAovace25-565IokFwtebf Hospital Ambulatory PPGComment on above:Performed By: #### CMP #### [facility] ([facility]) [address] [place] [address] VIRCO2 [Moles/Vol]24 mmol/JCsbkvr64-37IxmOlrogl Hospital Ambulatory PPGComment on above:Performed By: #### CMP #### [facility] ([facility]) [address] [place] [address] VIRCreatinine [Mass/Vol]0.58 mg/dLNormal0.40-1.00[facility] Ambulatory PPGComment on above:Result Comment: METHOD TRACEABLE TO IDMS STANDARDPerformed By: #### CMP #### [facility] ([facility]) [address] [place] [address] VIREGFR (CKD-EPI) NON-RACE DEPENDENT>^90Normal>=60ProMercy Health [facility] Ambulatory PPGComment on above:Result Comment: Reported eGFR is based on the CKD-EPI 2020 equation that does not use a race coefficient.Performed By: #### CMP #### [facility] ([facility]) [address] [place] [address] VIRGlucose [Mass/Vol]87 mg/vUQdsrgs69-90EdyBxvxws Hospital Ambulatory PPGComment on above:Performed By: #### CMP #### [facility] ([facility]) [address] [place] [address] VIRPotassium [Moles/Vol]3.8 mmol/LNormal3.5-5.0[facility] Ambulatory PPGComment on above:Performed By: #### CMP #### [facility] ([facility]) [address] [place] [address] VIRProtein [Mass/Vol]7.3 g/dLNormal6.0-8.0[facility] Ambulatory PPGComment on above:Performed By: #### CMP #### [facility] ([facility]) [address] [place] [address] VIRSodium [Moles/Vol]137 mmol/KOphdmb155-407KbcMudzkq Hospital Ambulatory PPGComment on above:Performed By: #### CMP #### [facility] ([facility]) [address] [place] [address] VIRUrea nitrogen [Mass/Vol]13 mg/dLNormal5-23ProMer[facility] Ambulatory PPGComment on above:Performed By: #### CMP #### [facility] ([facility]) [address] [place] [address] VIRComprehensive metabolic panelon 64-95-2635Obydgyk [Mass/Vol] 4.6 g/dL3.2 - 5.3 g/dLProGrove Hill Memorial Hospital Health SystemALP [Catalytic activity/Vol]84 U/L 39 - 130 U/LProMedica Health SystemALT No additional P-5'-P [Catalytic activity/Vol]17 U/LNINF - 31 U/LProMedica Health SystemAnion gap [Moles/Vol]10 mmol/L5 - 15 mmol/LProMedica Health SystemAST [Catalytic activity/Vol]24 U/LNINF - 41 U/LProMedica Health SystemBilirubin [Mass/Vol]0.6 mg/dL0.3 - 1.2 mg/dL ProMedica Health SystemCalcium [Mass/Vol]9.6 mg/dL8.5 - 10.5 mg/dLProMedica Health SystemChloride [Moles/Vol]103 mmol/L98 - 109 mmol/LProMedica Health SystemCO2 [Moles/Vol]24 mmol/L22 - 32 mmol/LProMedica Health SystemCreatinine [Mass/Vol]0.58 mg/dL0.40 - 1.00 mg/dLMercy Health Allen Hospital SystemComment on above: METHOD TRACEABLE TO IDAZ STANDARDEGFR Non-Race Dependent- [facility]oud[facility] HospitalComment on above:Reported eGFR is based on the CKD-EPI 2020 equation that does not use a race coefficient. Glucose [Mass/Vol]87 mg/dL65 - 99 mg/dLMercy Health Allen Hospital SystemInterpretation and review of laboratory resultsNormalProThe [facility]vue Hospital SystemPotassium [Moles/Vol] 3.8 mmol/L3.5 - 5.0 mmol/LProMedica Health SystemProtein [Mass/Vol]7.3 g/dL6.0 - 8.0 g/dLProMedica Health SystemSodium [Moles/Vol]137 mmol/L134 - 146 mmol/L ProMencompass health rehabilitation hospital of north alabamaa Health SystemUrea nitrogen [Mass/Vol]13 mg/dL5 - 23 mg/dLMercy Health Allen Hospital SystemLIPID PROFILEon 99-09-3636Objpimhoeqk [Mass/Vol]231 mg/dLHigh 150-200[facility] Ambulatory PPGComment on above:Performed By: #### LIPR #### [facility] ([facility]) [address] [place] [address] VIRCholesterol in HDL [Mass/Vol]61 mg/dLNormal>39[facility] Ambulatory PPGComment on above:Result Comment: HDL <40 mg/dL - High Risk HDL > or = 40mg/dL- Desirable HDL >60 mg/dL - Negative RiskPerformed By: #### LIPR #### [facility] ([facility]) [address] [place] [address] VIRCholesterol in LDL [Mass/Vol]152 mg/dLHigh<130[facility] Ambulatory PPGComment on above:Result Comment: LDL <100 mg/dL - Desirable LDL >160 mg/dL - High RiskPerformed By: #### LIPR #### [facility] ([facility]) [address] [place] [address] VIRCHOLESTEROL:HDL3.4Jrbluq4.0-5.0[facility] Ambulatory PPGComment on above:Performed By: #### LIPR #### [facility] ([facility]) [address] [place] [address] VIRTriglyceride [Mass/Vol]88 mg/cNGryxnd53-543KolGopjzh Hospital Ambulatory PPGComment on above:Performed By: #### LIPR #### [facility] ([facility]) [address] [place] [address] VIRVERY LOW EVLIBZOOBPU09 mg/dLNormal0-30[facility] Ambulatory PPGComment on above:Performed By: #### LIPR #### [facility] ([facility]) [address] [place] [address] VIRLipid profileon 29-97-0478Acbpvgwxgqh [Mass/Vol]231 mg/dL Wlfg479 - 200 mg/dLTrinity Health System West CampusCholesterol in HDL [Mass/Vol]61 mg/dL 39 - PINF mg/dLTrinity Health System West CampusComment on above:HDL <40 mg/dL - High Risk HDL > or = 40mg/dL- Desirable HDL >60 mg/dL - Negative Risk Cholesterol in HDL [Mass/Vol]3.8 mg/dL1.0 - 5.0[facility] Cholesterol in LDL [Mass/Vol]152 mg/dLHighNINF - 130 mg/dLTrinity Health System West CampusComment on above:LDL <100 mg/dL - Desirable LDL >160 mg/dL - High Risk Cholesterol in VLDL [Mass/Vol]18 mg/dL0 - 30 mg/dLTrinity Health System [facility] Campus Interpretation and review of laboratory resultsAbnormOhioHealth Marion General Hospital Triglyceride [Mass/Vol]88 mg/dL27 - 150 mg/dLTrinity Health System West CampusNo Panel Informationon 20-74-8054ZxfQqoypaTrinity Health System West CampusVITAMIN D 25 HYDROXYon 03-20-2025 VITAMIN D 25 HYD TOT26.1 ng/mLLow30.0-100.0[facility] Ambulatory PPG Comment on above:Order Comment: Vitamin D status 25 [place] Vitamin D Deficiency <20 ng/mL Insufficiency 20-29 ng/mL Sufficiency 30-100 ng/mL Toxicity >100 ng/mL NOTE: A pediatric reference range has not been established by the senior environmental scientist of this kit. The [place] [employer] recommends a Vitamin D level of = or >20ng/mL in infants and children.Performed By: #### VITD #### [facility] ([facility]) [address] [place] [address] VIRVitamin D 25 hydroxyon 134887-entjwpubdbsqkb D3 [Mass/Vol]26.1 ng/mLLow30.0 - 100.0 ng/mLTrinity Health System West CampusInterpretation and review of laboratory resultsAbnoFirstHealth Moore Regional Hospital - RichmondVitamin D status 25 [place] Vitamin D Deficiency <20 ng/mL Insufficiency 20-29 ng/mL Sufficiency 30-100 ng/mL Toxicity >100 ng/mL NOTE: A pediatric reference range has not been established by the senior environmental scientist of this kit. The [place] [employer] recommends a Vitamin D level of = or >20ng/mL in infants and children.[facility] SystemPOCT Influenza A/Influenza B/SARS-COV-2 Veritoron 56-06-2522Ckrnpixn Poct Influenza A AntigenPositiveTrinity Health System West CampusExternal Poct Influenza B AntigenNegativeNovant Health Presbyterian Medical CenterARS-CoV-2 (COVID-19) Ag IA.rapid Ql (Resp)NegativeJeanes HospitalXR DEXA AXIAL SKELETONon 67-12-5135Qko[place], [place] [address] XRay Report Signed Patient: FLAQUITO DIAZ MR#: [id number] : 1965 Acct:[id number] Age/Sex: 59 / F ADM Date: 09/19/24 Loc: RAD Attending Dr: Emilee Beatty Ordering Physician: Emilee Beatty Date of Service: 09/19/24 Procedure(s): XR DEXA axial skeleton Accession Number(s): [id number] cc: Emilee Beatty; KAI MENDOZA [place] [id number] Patient Name: FLAQUITO DIAZ MRN: [id number] date: 1965 Sex: F Assigned Patient Location: [facility] Current Patient Location: Accession/Order Number: [id number] Exam Date: 09/19/2024 15:40 Report Date: 09/20/2024 [...] Organization Classification: Osteopenia - Moderate Fracture Risk FRAX: Cannot be calculated. Pharmacologic treatment recommendations * No uniform recommendation applies to all patients. Management plans must be individualized. * Consider initiating pharmacologic treatment in postmenopausal women and men >= 50 years of age who have the following: Primary fracture prevention: * T-score <= - 2.5 at the femoral neck, total hip, lumbar spine, 33% radius (some uncertainty with existing data) by DXA. * Low bone mass (osteopenia: T-score between - 1.0 and - 2.5) at the femoral neck or total hip by DXA with a 10-year hip fracture risk >= 3% or a 10-year major osteoporosis-related fracture risk >= 20% (i.e., clinical vertebral, hip, forearm, or proximal humerus) based on the [place]-adapted FRAXregistered model. Secondary fracture prevention: * Fracture of the hip or vertebra regardless of BMD [4, 5]. * Fracture of proximal humerus, pelvis, or distal forearm in persons with low bone mass (osteopenia: T-score between - 1.0 and - 2.5). The decision to treat should be individualized in persons with a fracture of the proximal humerus, pelvis, or distal forearm who do not have osteopenia or low BMD [12, 13]. Alexis MS, Reema SL, Paul KL, Luis EM, Morena KG, AJ, Radha ES. The clinician's guide to prevention and treatment of osteoporosis. Osteoporos Int. 2021;33(10):8958-3482. doi: 10.1007/t41939-791-25661-d. Epub 2021Feb 06. Erratum in: Osteoporos Int. 2021May 08;: PMID: 25973391; PMCID: [id number]. Electronically authenticated by: JERZY ORELLANA Date: 09/20/2024 05:36 Dictated By: Jerzy Orellana M.D. Signed By: 09/20/24 0538 DD/ TD/TT: Human Relations Manager:GAYHRadiology, Radiologist, - 09/20/[address] [address] XRay Report Signed Patient: FLAQUITO DIAZ MR#: [id number] : 1965 Acct:[id number] Age/Sex: 59 / F ADM Date: 09/19/24 Loc: RAD Attending Dr: Emilee Beatty Ordering Physician: Emilee Beatty Date of Service: 09/19/24 Procedure(s): XR DEXA axial skeleton Accession Number(s): [id number] cc: Emilee Beatty; KAI MENDOZA [place] [id number] Patient Name: FLAQUITO DIAZ MRN: [id number] date: 1965 Sex: F Assigned Patient Location: [facility] Current Patient Location: Accession/Order Number: [id number] Exam Date: 09/19/2024 15:40 Report Date: 09/20/2024 [...] Organization Classification: Osteopenia - Moderate Fracture Risk FRAX: Cannot be calculated. Pharmacologic treatment recommendations * No uniform recommendation applies to all patients. Management plans must be individualized. * Consider initiating pharmacologic treatment in postmenopausal women and men >= 50 years of age who have the following: Primary fracture prevention: * T-score <= - 2.5 at the femoral neck, total hip, lumbar spine, 33% radius (some uncertainty with existing data) by DXA. * Low bone mass (osteopenia: T-score between - 1.0 and - 2.5) at the femoral neck or total hip by DXA with a 10-year hip fracture risk >= 3% or a 10-year major osteoporosis-related fracture risk >= 20% (i.e., clinical vertebral, hip, forearm, or proximal humerus) based on the [place]-adapted FRAXregistered model. Secondary fracture prevention: * Fracture of the hip or vertebra regardless of BMD [4, 5]. * Fracture of proximal humerus, pelvis, or distal forearm in persons with low bone mass (osteopenia: T-score between - 1.0 and - 2.5). The decision to treat should be individualized in persons with a fracture of the proximal humerus, pelvis, or distal forearm who do not have osteopenia or low BMD [12, 13]. Alexis MS, Reema SL, Paul KL, Luis EM, Morena KG, AJ, Radha ES. The clinician's guide to prevention and treatment of osteoporosis. Osteoporos Int. 2021;33(10):2538-2518. doi: 10.1007/j63944-710-21786-a. Epub 2021Feb 06. Erratum in: Osteoporos Int. 2021May 08;: PMID: 99109645; PMCID: [id number]. Electronically authenticated by: JERZY ORELLANA Date: 09/20/2024 05:36 Dictated By: Jerzy Orellana M.D. Signed By: 09/20/2438 DD/ 5 TD/TT: Human Relations Manager: ANJEL HealthcareRadiology Study observation (narrative)ANJEL HealthcareXR DEXA AXIAL SKELETONOrdered By: Radiologist Radiology on 78-47-6650JGZG Healthcare Work Phone: mm TOMOSYNTHESIS SCREENING BIon 72-95-0236YchG[place], [place] [address] Mammography Report Signed Patient: FLAQUITO DIAZ MR#: [id number] : 1965 Acct:[id number] Age/Sex: 59 / F ADM Date: 09/05/24 Loc: MAMMO Attending Dr: Emilee Beatty Ordering Physician: Emilee Beatty Results: Date of Service: 09/05/24 Follow Up: Procedure(s): MM tomosynthesis screening BI Accession Number(s): [id number] cc: Emilee Beatty; KAI MENDOZA Patient Name: FLAQUITO DIAZ MR#: [id number] : 1965 Exam Date: 09/05/2024 Ordering Doctor: VERONA Beatty . RADIOLOGY REPORT PROCEDURE: MM TOMOSYNTHESIS SCREENING BI COMPARISON: MM TOMOSYNTHESIS SCREENING BI, 07/21/2023. MG MAMM SCREEN 3D COLLEEN CAD, 02/20/2022. MG MAMM SCREEN COLLEEN W CAD, 08/21/2020. MG MAMM COLLEEN SCRN W CAD DIG, 02/05/2011. INDICATIONS: Screening Calculator [...] stomach cancer at age 39. LOCATION: [facility] BREAST COMPOSITION: The breasts are extremely dense, which lowers the sensitivity of mammography. FINDINGS: DIAGNOSTIC CATEGORY 1--NEGATIVE. RIGHT BREAST: No significant suspicious finding. No significant change has occurred. LEFT BREAST: No significant suspicious finding. No significant change has occurred. RECOMMENDATIONS: ROUTINE MAMMOGRAM AND CLINICAL EVALUATION IN 12 MONTHS. PLEASE NOTE: A NORMAL MAMMOGRAM DOES NOT EXCLUDE THE POSSIBILITY OF BREAST CANCER. A CLINICALLY SUSPICIOUS PALPABLE LUMP SHOULD BE BIOPSIED. Dictated by: Jerzy Orellana M.D. on 09/06/2024 at 13:52 Approved by: Jerzy Orellana M.D. on 09/06/2024 at 13:56 Dictated By: Jerzy Orellana M.D. Signed By: 09/06/24 1357 DD/ 1356 TD/TT: Human Relations Manager:TBHRadiology, Radiologist, - 09/06/2024 [place] [address] Mammography Report Signed Patient: FLAQUITO DIAZ MR#: [id number] : 1965 Acct:[id number] Age/Sex: 59 / F ADM Date: 09/05/24 Loc: MAMMO Attending Dr: Emilee Beatty Ordering Physician: Emilee Beatty Results: Date of Service: 09/05/24 Follow Up: Procedure(s): MM tomosynthesis screening BI Accession Number(s): [id number] cc: Emilee Beatty; KAI MENDOZA Patient Name: FLAQUITO DIAZ MR#: [id number] : 1965 Exam Date: 09/05/2024 Ordering Doctor: VERONA Beatty . RADIOLOGY REPORT PROCEDURE: MM TOMOSYNTHESIS SCREENING BI COMPARISON: MM TOMOSYNTHESIS SCREENING BI, 07/21/2023. MG MAMM SCREEN 3D COLLEEN CAD, 02/20/2022. MG MAMM SCREEN COLLEEN W CAD, 08/21/2020. MG MAMM COLLEEN SCRN W CAD DIG, 02/05/2011. INDICATIONS: Screening Calculator [...] stomach cancer at age 39. LOCATION: [facility] BREAST COMPOSITION: The breasts are extremely dense, which lowers the sensitivity of mammography. FINDINGS: DIAGNOSTIC CATEGORY 1--NEGATIVE. RIGHT BREAST: No significant suspicious finding. No significant change has occurred. LEFT BREAST: No significant suspicious finding. No significant change has occurred. RECOMMENDATIONS: ROUTINE MAMMOGRAM AND CLINICAL EVALUATION IN 12 MONTHS. PLEASE NOTE: A NORMAL MAMMOGRAM DOES NOT EXCLUDE THE POSSIBILITY OF BREAST CANCER. A CLINICALLY SUSPICIOUS PALPABLE LUMP SHOULD BE BIOPSIED. Dictated by: Jerzy Orellana M.D. on 09/06/2024 at 13:52 Approved by: Jerzy Orellana M.D. on 09/06/2024 at 13:56 Dictated By: Jerzy Orellana M.D. Signed By: 09/06/24 0759 DD/ 55 TD/TT: Human Relations Manager: [facility] HealthcareRadiology Study observation (narrative)[facility] TOMOSYNTHESIS SCREENING BIOrdered By: Radiologist Radiology on 87-59-0121[facility] Work Phone: IGP,APTIMA HPV,AGE GDLNon 31-26-2110BXR GDLN ACOG TESTINGNote.[facility] HealthcareComment on above:TESTS RESULT FLAG UNITS REF RANGE LAB Clinician Provided Cytology Information Source.............Cervix;Endocervix No. of containers..01 ThinPrep Vial Age Algo ACOG Debbie... 30-65 01 FLAG LEGEND: L-Low Normal,H-High Normal,LL-Alert Low,HH-Alert High <-Panic Low,>-Panic High,A-Abnormal,AA-Critical Abnormal Performed at: 01 =G [address] [address] Reba Smith MD, HPV APTIMANegativeNegativeBEAVER VALLEY [facility] HealthcareComment on above:This nucleic acid amplification test detects fourteen high- risk HPV types (16,18,31,33,35,39,45,51,52,56,58,59,66,68) without differentiation. Performed at: =G - [facility] [address] [id number] Molder Setter: Reba Smith MD, Phone: [phone] Performed at: - [facility] [id number] Molder Setter: Reba Smith MD, Phone: [phone] IGP, APTIMA HPV, RFX 16/18,45Note.[facility] HealthcareComment on above:TESTS RESULT FLAG UNITS REF RANGE LAB DIAGNOSIS: 02 NEGATIVE FOR INTRAEPITHELIAL LESION OR MALIGNANCY. Specimen adequacy: 02 Satisfactory for evaluation. No endocervical component is identified. Performed by: 02 Asia Moon Light Oil Operator (ASCP) . 02 Note: Note 02 The [...] <-Panic Low,>-Panic High,A-Abnormal,AA-Critical Abnormal Performed at: [address] [facility] [address] Reba Smith MD, BRUSH-SPATULA CERVIX ENDOCERVIX [facility]stownCyt[facility] Cervical or vaginal smear or scraping studyon 54-21-4850ZHXH HealthcareMG MAMM SCREEN 3D COLLEEN CADon 05-50-1972TV MAMM SCREEN 3D COLLEEN CADPatient: FLAQUITO DIAZ Exam Date: 02/20/2022 : 1965 Gender:F Ordering : DR ELSA PALMER . Admission #: [id number] Family : Order #: [id number] CLICK HERE TO VIEW EXAM RADIOLOGY REPORT [...] stomach cancer at age 39. LOCATION: [facility] BREAST COMPOSITION: Extremely dense, which lowers [...] by: Marcelo Moon MD on 02/21/2022 at 08:22[facility] HospitalXR DEXA BONE DENSITYon 22-96-8992QW DEXA BONE DENSITYEXAMINATION: XR DEXA BONE DENSITY, 02/20/2022 3:45 PM EDT HISTORY: [...] - Moderate Fracture Risk Electronically authenticated by: JERZY BOBBY Date: 2022-02-20 16:41[facility] Doctors HospitalOG PANEL 2: 30 to 65on 01-28-2022..NormalWvumedicine Harrison Community HospitalComment on above:Result Comment: Performed at: WBPerformed By: #### [id number] #### [facility] [address] [place] [address] Dr. Juanis Harris Gdln ACOG Igxmoux35-54FpbzbaImmMemorial Health System Selby General HospitalComment on above:Performed By: #### [id number] #### [facility] [address] [place] [address] Dr. Juanis SolisDIAGNOSIS:CommentAbShelby Memorial HospitalComselect specialty hospital-grosse pointe on above: Result Comment: EPITHELIAL CELL ABNORMALITY. ATYPICAL SQUAMOUS CELLS OF UNDETERMINED SIGNIFICANCE (ASC-US). Performed at: WBPerformed By: #### [id number] #### [facility] [address] [place] [address] Dr. Olivarez ChangElectronically signed by:[facility] Comment on above:Result Comment: John Salmeron MD, Pathologist Performed at: WBPerformed By: #### [id number] #### [facility] [address] [place] [address] Dr. Juanis SolisHPV AptimaNegativeNormalNegativeWvumedicine Harrison Community HospitalComment on above:Result Comment: This nucleic acid amplification test detects fourteen high-risk HPV types (16,18,31,33,35,39,45,51,52,56,58,59,66,68) without differentiation. Performed at: =GPerformed By: #### [id number] #### [facility] [address] [place] [address] Dr. Juanis SolisMethodology:CommentOhioHealth Grady Memorial Hospital on above: Result Comment: This liquid based ThinPrep(R) pap test was screened with the use of an image guided system. Performed at: Performed By: #### [id number] #### [facility] [address] [place] [address] Dr. Juanis SolisNote:CommentOhioHealth Grady Memorial Hospital on above:Result Comment: The Pap smear is a screening test designed to aid in the detection of premalignant and malignant conditions of the uterine cervix. It is not a diagnostic procedure and should not be used as the sole means of detecting cervical cancer. Both false-positive and false-negative reports do occur. . Performed at: Performed By: #### [id number] #### [facility] [address] [place] [address] Dr. Juanis SolisPathologist Provided JPY97PeakakmXwhizzJgjMemorial Health System Comment on above:Result Comment: R87.610 Performed at: Performed By: #### [id number] #### [facility] [address] [place] [address] Dr. Juanis SolisPerformed by:CommentOhioHealth Grady Memorial Hospital on above: Result Comment: Kellee Frankel, Light Oil Operator (ASCP) Performed at: WBPerformed By: #### [id number] #### [facility] [address] [place] [address] Dr. Juanis SolisRecommendation:CommentAbMercy Health Allen Hospital on above:Result Comment: Suggest follow up as clinically appropriate. Performed at: WBPerformed By: #### [id number] #### [facility] [address] [place] [address] Dr. Juanis SolisSpecimen adequacy:CommentOhioHealth Grady Memorial Hospital on above:Result Comment: Satisfactory for evaluation. Endocervical and/or squamous metaplastic cells (endocervical component) are present. Performed at: WBPerformed By: #### [id number] #### [facility] [address] [place] [address] Dr. Juanis Solis Vital Signs Date TimeVital SignValuePerforming GbndoiofiIsifmpir44-37-8425 15:57-0400Body .7 cmDensidney Famlong DO Work Phone: [employer] Belnlq16-16-4436 15:57-0400Body mass index (BMI) [Ratio]29.21 kg/f3Lobzwf Furlong DO Work Phone: [employer] [employer] Ubjbzx26-00-0663 15:57-0400Body hudpkjqvjrf44.59 [degF]Kai Famlong DO Work Phone: [employer] Kpshed42-51-5036 15:57-0400Body xelvwt98.59 kgDensidney Famlong DO Work Phone: [employer] [employer] Muyild75-12-1534 15:57-0400Diastolic blood pjirmbtw57 mm[Hg]Kai Famlong DO Work Phone: [employer] Emzqvg21-83-7235 15:57-0400Heart rate 66 /Jann Famlong DO Work Phone: [facility] Pkryzn82-22-1323 15:57-0400 Respiratory rate18 /minDliangis Cristellong DO Work Phone: [employer] [employer] Icmkby80-53-2462 15:57-7014LfS4% (BldA) [Mass fraction]96 %Kai Famlong DO Work Phone: [employer] [employer] Yubpkj84-70-0134 15:57-0400Systolic blood mgbsoacg596 mm[Hg]Kai Famlong DO Work Phone: [facility] [employer] Bznjym80-04-5643 09:31-0500Body emoxga661.9 cmDennis Cristellong DO Work Phone: [facility] [employer] Wjfvko34-76-4132 09:31-0500Body mass index (BMI) [Ratio]28 kg/v1Zroken Furlong DO Work Phone: [facility] [employer] Zsiyia91-21-8255 09:31-0500Body .81 [degF]Kai Famlong DO Work Phone: [facility]02-12-2025 09:31-0500Body ejsxai70.91 kgDensidney Famlong DO Work Phone: [facility]02-12-2025 09:31-0500Diastolic blood xlsxriew12 mm[Hg]Kai Famlong DO Work Phone: [facility]02-12-2025 09:31-0500Heart rate 81 /Jann Manriquezng DO Work Phone: [facility]02-12-2025 09:31-0500 Respiratory rate18 /Jann Manriquezng DO Work Phone: [facility]02-12-2025 09:31-5168BlG8% (BldA) [Mass fraction]99 %Kai Famlong DO Work Phone: [facility]02-12-2025 09:31-0500Systolic blood aaunjorh685 mm[Hg]Kai Manriquezng DO Work Phone: [facility] [employer] Rhbaht02-82-8959 16:27-0500Body .9 cmKai Manriquezng DO Work Phone: [facility]02-03-2025 16:27-0500Body mass index (BMI) [Ratio]28.04 kg/f3Zdsxsj Furlong DO Work Phone: [facility]02-03-2025 16:27-0500Body motkkfelqnp14.9 [degF]Kai Manriquezng DO Work Phone: [facility]02-03-2025 16:27-0500Body npizcj94.01 kgKai Manriquezng DO Work Phone: [facility]02-03-2025 16:27-0500Diastolic blood kbylqwbb07 mm[Hg]Kai Furlong DO Work Phone: [employer] [employer] Qvvsat61-15-5254 16:27-0500Heart rate 84 /Jann Mendoza DO Work Phone: [employer] [employer] Ujftqs87-88-3263 16:27-0500 Respiratory rate18 /Jann Mendoza DO Work Phone: [facility]02-03-2025 16:27-8861PtA1% (BldA) [Mass fraction]98 %Kai Mendoza DO Work Phone: [employer] Minlre42-02-5818 16:27-0500Systolic blood nifgmwwe893 mm[Hg]Kai Mendoza DO Work Phone: [facility]11-06-2024 14:19-0500Body mass index (BMI) [Ratio]28.48 kg/m2Emilee Beatty PA Work Phone: [facility] HospitalAetijhjusr91-25-8132 14:19-0500Body .96 kgEmilee Beatty PA Work Phone: [facility] HospitalLjeqqhmbmd77-35-8503 14:19-0500Diastolic blood fvxsomet30 mm[Hg]Emilee Carrascoey PA Work Phone: [facility] HospitalYojlmzjcne40-08-3657 14:19-0500Systolic blood zwubtdlf799 mm[Hg]Emilee Jackeline PA Work Phone: [facility] HospitalIodfivnddq71-40-1145 11:51-0400Body scaczy782.9 cmJojazz Cardozo DO Work Phone: [employer] [employer] Choymr21-65-5355 11:51-0400Body mass index (BMI) [Ratio]28.58 kg/m2Manjinder Paynes DO Work Phone: [facility]10-07-2024 11:51-0400Body bjssmuuqjqq85.01 [degF]Manjinder Marialuisa DO Work Phone: [facility]10-07-2024 11:51-0400Body uihrpj30.18 kgManjinder Cardozo DO Work Phone: [facility] Ocgbhi92-08-0732 11:51-0400Diastolic blood eczzthlq11 mm[Hg]Manjinder Cardozo DO Work Phone: [facility] [employer] Mmfiqw76-61-7923 11:51-0400Heart rate 71 /minJojazz Cardozo DO Work Phone: [facility] [employer] Ubrggx41-12-9546 11:51-5294HzX9% (BldA) [Mass fraction]99 %Manjinder Cardozo DO Work Phone: [facility] [employer] Elrpbc86-28-8567 11:51-0400Systolic blood xzlcytkm112 mm[Hg]Manjinder Cardozo DO Work Phone: [facility] [employer] Rlhian31-29-4829 16:05-0400Body vaunyb465.9 cmValeinna Kc APRN-COAL HAULER OPERATOR Work Phone: [employer] Xxrrmt49-23-4411 16:05-0400Body mass index (BMI) [Ratio]29.08 kg/f3Tthcdgsinna Kc APRN-COAL HAULER OPERATOR Work Phone: [facility] [employer] Amhjdw82-00-4929 16:05-0400Body kyywpnqqwzx62.81 [degF]Eleanor Kc APRN-COAL HAULER OPERATOR Work Phone: [facility] [employer] Gjanqh06-69-9901 16:05-0400Body zbynxx39.32 kgEleanor Kc APRN-COAL HAULER OPERATOR Work Phone: [facility] [employer] Vmxkpo87-72-1914 16:05-0400Diastolic blood mm[Hg]Eleanor Kc APRN-COAL HAULER OPERATOR Work Phone: [employer] Xzmnmp08-20-2087 16:05-0400Heart rate 67 /minEleanor Kc APRN-COAL HAULER OPERATOR Work Phone: [facility] [employer] Kvldaa42-00-7650 16:05-0400 Respiratory rate18 /minValerie Kc MAIL CENSOR-COAL HAULER OPERATOR Work Phone: [facility] HospitalSENSIMED03-20-2024 16:05-3856XcA4% (BldA) [Mass fraction]95 %Eleanor ARORA Work Phone: [facility]03-20-2024 16:05-0400Systolic blood zuofelgd397 mm[Hg]Eleanor Kc APRNKnack Inc.[facility] Work Phone: [facility] HospitalSENSIMED Encounters Encounter DateEncounter TypeCare ProviderFacilityStart: 03-20-2025 End: 40-93-1243Xxxmygf encounter statusKai Mendoza DO Work Phone: [facility] Work Phone: Start: 03-20-2025 End: 06-44-0261Ksmcjdiw preventive med est patient 40-64yrsDennjeffrey Mendoza DO Work Phone: [facility] [facility] Family MedicineComment on above:Well adult exam (Primary Dx); Need for vaccination; Osteopenia of left hip; OverweightStart: 03-20-2025 End: 93-97-8590jhfwgdjyflZNYESACommunity Memorial Hospital Ambulatory PPGStart: 46-90-5480Vusfyygxu for general adult medical examination without abnormal findingsSt. [facility] Ambulatory PPGStart: 11-23-2024 End: 49-87-4648Zupcph outpatient visit 15 minutesKai Mendoza DO Work Phone: [facility] [facility] Family MedicineComment on above:Subacute maxillary sinusitis (Primary Dx)Start: 11-23-2024 End: 60-52-4800vwffhoeviaDTEYPDCommunity Memorial Hospital Ambulatory PPGStart: 11-21-2024 End: 60-17-6862Dfavpi OnlyKai Mendoza DO Work Phone: [facility] Family MedicineStart: 11-14-2024 End: 00-66-8973zbflzzltmbSHURWB G [facility] Ambulatory PPGStart: 11-14-2024 End: 20-76-9534Pjbvtr outpatient visit 15 minutesKai Mendoza DO Work Phone: [facility] Family MedicineComment on above:Influenza A (Primary Dx)Start: 09-20-2024 End: 86-69-9052Nwdskrchb Result EncounterAmy Jackeline RHOADES Work Phone: n[facility] External Department UnsolicitedStart: 09-20-2024 End: 98-24-2100Nozqmrmms Result EncounterAmy Jackeline RHOADES Work Phone: [facility] External Department UnsolicitedStart: 09-06-2024 End: 50-09-3370Sicvvywhn Result EncounterAmy Jackeline RHOADES Work Phone: [facility]oms External Department UnsolicitedStart: 09-06-2024 End: 94-41-9322Btkygpnyg Result EncounterAmy Jackeline RHOADES Work Phone: [facility] External Department UnsolicitedStart: 08-17-2024 End: 82-83-7079Olipmb flowsheetAmy Jackeline RHOADES Work Phone: [facility] BCP OBStart: 08-17-2024 End: 35-72-3453Fuexta flowsheetEmilee RHOADES Work Phone: [facility] BCP OBStart: 08-17-2024 End: 02-76-7929Skgtkrxdd Result EncounterAmy Jackeline RHOADES Work Phone: [facility] External Department UnsolicitedStart: 08-17-2024 End: 65-90-9258Kerojpo encounter procedureAmy Jackeline RHOADES Work Phone: noms HealthcareStart: 08-17-2024 End: 55-58-5892Dhdunuss preventive med est patient 40-64yrsAmy Jackeline RHOADES Work Phone: noms [facility] OBComment on above:Well woman exam with routine gynecological exam; Breast cancer screening by mammogram; Osteoporosis, post-menopausal (CMS/HCC)Start: 08-17-2024 End: 79-40-0655kwacmiscxeIXP RAMEYNot AvailableStart: 07-18-2024 End: 86-36-7391Zlpuxe outpatient visit 15 minutesManjinder Bookers DO Work Phone: [facility] Family MedicineComment on above:Acute bronchitis, unspecified organism (Primary Dx) Start: 07-18-2024 End: 45-82-3435golzdobuyaJQRM [facility] Ambulatory PPGStart: 12-30-2023 End: 64-38-7738Kngivg outpatient visit 15 minutesBaileyinna Kc MAIL CENSOR-COAL HAULER OPERATOR Work Phone: [facility] Family MedicineComment on above:Acute non-recurrent pansinusitis (Primary Dx)Start: 02-20-2022 End: 89-90-0088fvzfwexnhaBX LEODAN HOUSEFacility:Y8Nrxsy: 01-20-2022 End: 48-96-2074bsgnqlmnhzFD ELSA FAZIOFacility:Y9Dsupi: 04-09-2021 End: 20-31-1687nswbfmrfckRO JERZY Irby ZIEBERFacility:B7Vvdtq: 03-25-2021 End: 03-44-5536yyxlyapxixSLUWLUN NOYESFacility:B7Voqmz: 03-04-2021 End: 93-43-6936owmyqlecjgNMTTGOU NOYESFacility:H1 Procedures DateProcedureProcedure DetailPerforming ClinicianStart: 09-06-8150Jirabgxebyupd metabolic panelKai Thomas Furlong DO Work Phone: Start: 41-72-2266Mtdwc panelKai Manriquezng DO Work Phone: Start: 98-09-2891Wsrpb depression screening assessment Kai Famlong DO Work Phone: Start: 96-64-2974Uifnb depression screening assessment Kai Famlong DO Work Phone: Start: 02-08-2109JZGR INFLUENZA A/INFLUENZA B/SARS-COV-2 VERITORKai Famlong DO Work Phone: Start: 32-81-4844Kmvrk depression screening assessment Kai Mendoza DO Work Phone: Start: 33-48-3884FT DEXA AXIAL SKELETONEmilee RHOADES Work Phone: Start: 85-21-0058WL TOMOSYNTHESIS SCREENING BIEmilee RHOADES Work Phone: Start: 67-53-9006ZjymhzsjoqkSoaisw Furlong DO Work Phone: Start: 77-96-9145LHK,APTIMA HPV,AGE GDLNEmilee RHOADES Work Phone: Start: 33-91-3321Vggps depression screening assessment Manjinder Cardozo DO Work Phone: Start: 28-70-2309Qgupc depression screening assessment Eleanor Kc MAIL CENSOR-COAL HAULER OPERATOR Work Phone: Start: 62-90-9195FqcrhjjjwgpKlg Ramey PA Work Phone: Start: 32-38-7342BvjnuaxjsojOhrdyjr Kc MAIL CENSOR-COAL HAULER OPERATOR Work Phone: Start: 20-12-2089Sdxfpfigklj observation [Identifier] in Cervix by Cyto stainEmilee RHOADES Work Phone: Start: 67-17-6873Tuez cerv/vag auto thin layer prep mnl screenEmilee RHOADES Work Phone: Start: 92-20-4276Uzrlfebsppd observation [Identifier] in Cervix by Cyto stainBaileyrie Kc MAIL CENSOR-COAL HAULER OPERATOR Work Phone: Start: 66-05-8323LcpxtxldspfMxwuuer Kc MAIL CENSOR-COAL HAULER OPERATOR Work Phone: Plan of Treatment DateCare ActivityDetailAuthorStart: 62-28-1441KLoA,Tdap and Td Vaccines (2 - Td or Tdap)DTaP,Tdap and Td Vaccines (2 - Td or Tdap)[facility] [employer] SystemStart: 16-99-2904Duxtnriez for malignant neoplasm of colonNOMS HealthcareStart: 61-84-8735Eopznozxk for malignant neoplasm of cervixNOMS HealthcareStart: 22-38-2767Mffvoyhgd for malignant neoplasm of cervixPap SmearMercy Health Allen Hospital SystemStart: 16-99-3186Wraxr BMI ScreeningAdult BMI ScreeningMercy Health Allen Hospital SystemStart: 65-69-4466CFQLJ-19 Vaccine ()COVID-19 Vaccine ()[facility] SystemComment on above:Postponed from 06/12/2024 (Vaccine Not Available)Start: 55-98-0928Vajcwoetbe Screening Depression ScreeningMercy Health Allen Hospital SystemStart: 06-66-1562Vfceyan Screening Tobacco ScreeningMercy Health Allen Hospital SystemStart: 37-73-4469Xsjbmovou for malignant neoplasm of cervixPap SmearMercy Health Allen Hospital SystemStart: 95-83-5289Mhurh BMI ScreeningAdult BMI ScreeningMercy Health Allen Hospital SystemStart: 27-16-8297Sfdmokpjfr ScreeningDepression ScreeningMercy Health Allen Hospital SystemStart: 03-45-7547Injijor ScreeningTobacco ScreeningMercy Health Allen Hospital SystemStart: 89-84-7198Vlbxp BMI ScreeningAdult BMI ScreeningMercy Health Allen Hospital SystemStart: 81-50-0020Vgptwkdlfj ScreeningDepression ScreeningMercy Health Allen Hospital SystemStart: 85-50-2559Ltuwkkd ScreeningTobacco ScreeningMercy Health Allen Hospital SystemStart: 83-82-7019Yflmslodu for malignant neoplasm of breastMammogramMercy Health Allen Hospital SystemStart: 08-22-2025 End: 19-63-2345Ehzjpzk encounter procedureNOMS BCP OBStart: 44-90-3958Mmqdn BMI ScreeningAdult BMI ScreeningMercy Health Allen Hospital SystemStart: 59-99-0383Xyehzprued ScreeningDepression ScreeningMercy Health Allen Hospital SystemStart: 88-13-5781Wyxvvij ScreeningTobacco ScreeningMercy Health Allen Hospital SystemStart: 58-45-0220Jlgqxboyg vaccinationInfluenza VaccineMercy Health Allen Hospital SystemStart: 04-06-2025 End: 46-46-5453Spdifki encounter jdyvgdsss74/26/2025 3:15 PM EDT [facility] [address] [place] [address] Kai Mendoza, [address], [place] [address] [facility] MedicineStart: 87-02-6987Binlz BMI Follow Up PlanAdult BMI Follow Up PlanMercy Health Allen Hospital SystemStart: 06-22-4433Jctxk BMI ScreeningAdult BMI ScreeningProThe [facility] SystemStart: 64-92-2856Souhvmmayk ScreeningDepression ScreeningProThe [facility] Hospital SystemStart: 00-43-7873Dpbdlsq ScreeningTobacco ScreeningProThe [facility] Hospital SystemStart: 11-23-2024 End: 41-06-2722Kjfjqsb encounter dhohilhnx97/12/2025 9:30 AM EST [facility] [address] [place] [address] Kai Mendoza, [address], [place] [address] [facility] Systemtart: 08-17-2024 End: 39-53-9991QQS Skeletal system Views for bone densityDEXA bone density Imaging Routine Osteoporosis, post-menopausal ([facility]/HCC) Expected: 08/17/2024 (Approximate), Expires: 08/17/2025NOAZ HealthcareComment on above:Expected: 08/17/2024 (Approximate), Expires: 08/17/2025Start: 08-17-2024 End: 46-82-3374YR Breast - bilateral ScreeningBilateral screening mammogram Imaging Routine Breast cancer screening by mammogram Expected: 08/17/2024 (Approximate), Expires: 10/17/2025[facility] Work Phone: comment on above:Expected: 08/17/2024 (Approximate), Expires: 10/17/2025Start: 08-17-2024 End: 59-21-1385Btipeyu encounter kteqnyphl89/06/2024 2:00 PM EST Office Visit [facility] [address] [place] [address] Emilee Beatty PA [address] [place] [address] ArrivedNOAZ BCP OBComment on above:ArrivedStart: 07-23-2024 Screening for malignant neoplasm of breastMammogramNOAZ HealthcareStart: 06-28-5091Odixefpjn for malignant neoplasm of breastMammogramMercy Health Allen Hospital SystemStart: 68-16-1523QHLDN-19 Vaccine ( season)COVID-19 Vaccine ( season)[facility] SystemStart: 11-25-6660FTEXY-19 Vaccine ()COVID-19 Vaccine ()[facility] Start: 92-95-5225Pacdczxov vaccinationBEAVER VALLEY [facility]ITAL HealthcareStart: 82-63-9286AQXIW-19 Vaccine ( season)COVID-19 Vaccine ( season)[facility] SystemStart: 92-90-3440Yatplyvvs vaccinationInfluenza VaccineMercy Health Allen Hospital SystemStart: 09-61-5824Aakhejojviwxct of varicella zoster vaccineZoster (Shingles) Vaccine (1 of 2)[facility] SystemStart: 45-02-5050NYqY,Tdap and Td Vaccines (1 - Tdap)DTaP,Tdap and Td Vaccines (1 - Tdap)[facility] SystemStart: 74-11-6886Ltirl BMI Follow Up PlanAdult BMI Follow Up PlanMercy Health Allen Hospital SystemStart: 34-32-0309Npjbthkxg for malignant neoplasm of colonNOAZ HealthcareTHIN PREP TIS PAP AND HR HPV DNATHIN PREP TIS PAP AND HR HPV DNA Pathology and Cytology Routine Well woman exam with routine gynecological exam Ordered: 08/17/2024NOAZ HealthcareComment on above:Ordered: 08/17/2024 Immunizations Immunization DateImmunizationNotesCare [id number] toxoid, reduced diphtheria toxoid, and acellular pertussis vaccine, adsorbedDennis Furlong DO Work Phone: [facility] [phone], In Clinic,; Translations: [Drug or medicament (substance)]Kai Furlong DO Work Phone: [facility] [id number] Vaccine, Quadrivalent, AdjuvantedDennis Furlong DO Work Phone: [facility] [id number] virus vaccine, unspecified formulationDennis Furlong DO Work Phone: [facility] [id number], injectable, quadrivalent, preservative freeDennis Furlong DO Work Phone: [facility] CampusNgkgfu79-88-0577tgobunxqw virus vaccine, unspecified formulationValerie Kc MAIL CENSOR-COAL HAULER OPERATOR Work Phone: [facility] CampusNzvacp26-77-8610Jbnoebejh, injectable, Madin Mara Canine Kidney, preservative free, quadrivalentDennis Furlong DO Work Phone: [facility] [id number] virus vaccine, whole virusDennis Furlong DO Work Phone: [facility] Payers DatePayer CategoryPayerPolicy [id number] Care Other (unspecified) [employer] .[id number] Private Health [id number] [id number] [id number] 2.16.840.1.019845.3.57[id number] 2.16.840.1.845766.3.57[id number] 2.16.840.1.695014.3.57[id number] 2.16.840.1.069908.3.57[id number] 2.16.840.1.580036.3.57[id number] 2.16.840.1.300965.3.57[id number] 2.16.840.1.528675.3.57[id number] 2.840.1.646467.3.57[id number] 2.840.1.787802.[id number] Social History DateTypeDetailFacilityStart: 80-63-2625Djrxjod smoking status NHISNever smoked tobaccoNOMS HealthcareStart: 04-29-2023 End: 11-15-3211Clfblrtpq beverage intakeLifetime non-drinker (finding)[facility] HealthcareStart: 04-29-2023 End: 26-94-0583Hcgxwgs of Social functionNOAZ HealthcareStart: 04-29-2023 End: 82-32-4651Pgsyjgs use panelBEAVER VALLEY HOSPITAL HealthcareStart: 45-59-9986Diubhzs Comment Caffeine intake: 1-2 cups per dayBEAVER VALLEY HOSPITAL HealthcareStart: 83-70-7949Jiw assigned at birthNot on fileMercy Health Allen Hospital SystemStart: 75-14-1577Xvmlpcn smoking status NHISEx-smokerMercy Health Allen Hospital SystemHistory of tobacco useCurrent smoker [facility] CampusHistory of tobacco useCigarette SmokerMercy Health Allen Hospital SystemStart: 61-71-2987Yghceac use and exposureSmokeless tobacco non-user [facility] Centertart: 11-14-2024 End: 29-79-3595Qzyvltodi beverage intakeCurrent drinker of alcohol (finding) [facility] SystemDo you belong to any clubs or organizations such as zoroastrian groups, unions, fraNovadiol or athletic groups, or school groups?Yes [facility] SystemAre you now , , , , never or living with a partner?DivorcedMercy Health Allen Hospital SystemHow often to you have a drink containing alcohol?Monthly or lessMercy Health Allen Hospital SystemHow many standard drinks containing alcohol do you have on a typical day?1 or 2PSelect Medical Specialty Hospital [facility] SystemHow often do you have 6 or more drinks on 1 occasion?NeverNovant Health Presbyterian Medical Centertart: 07-23-3460Zhz hard is it for you to pay for the very basics like food, housing, medical care, and heatingNot hard at allTrinity Health System West CampusDo you feel stress - tense, restless, nervous, or anxious, or unable to sleep at night because yourmind is troubled all the time - these days [OSQ]Only a littleNovant Health Presbyterian Medical Centertart: 56-71-7808Waxkzpc CommentOccasional [facility] Centertart: 33-47-3714CkbIfvgai (finding)[facility] CampusHas the Oddslife, gas, oil, or water company threatened to shut off services in your home in past 12ThuSt. Anthony's Hospital System Clinical Notes 03-04-2021 to 03-20-2025 Note Date & OusxTlugHnjpqeac20-81-8734 History of Present illness Narrative* Kai Mendoza, - 03/20/2025 4:00 PM EDT Subjective Patient ID: Flaquito Diaz is a 59 y.o. female. Flaquito presents for her annual wellness exam. She has no new problems. She had a bone density and wastold she has thinning of her bones and should have her vitamin D checked. Annual Exam The following portions of the patient's history were reviewed and updated as appropriate: allergies, current medications, past family history, past medical history, past social history, past surgicalhistory, problem list, and medication reconciliation was completed including current medication andpost discharge medication. Review of Systems Constitutional: Negative. Eyes: Negative. Respiratory: Negative. Cardiovascular: Negative. Gastrointestinal: Negative. Endocrine: Negative. Genitourinary: Negative. Musculoskeletal: Negative. Skin: Negative. Neurological: Negative. Hematological: Negative. Psychiatric/Behavioral: Negative. Objective Physical Exam Vitals reviewed. Exam conducted with a home health clinical supervisor present (Inderjit Murray MS 3). Constitutional: General: She is not in acute distress. Appearance: Normal appearance. She is overweight. She is not ill-appearing. HENT: Head: Normocephalic. Right Ear: Tympanic membrane, ear canal and external ear normal. Left Ear: Tympanic membrane, ear canal and external ear normal. Nose: Nose normal. Mouth/Throat: Mouth: Mucous membranes are moist. Eyes: General: No scleral icterus. Extraocular Movements: Extraocular movements intact. Conjunctiva/sclera: Conjunctivae normal. Neck: Vascular: No carotid bruit. Cardiovascular: Rate and Rhythm: Normal rate and regular rhythm. Pulses: Normal pulses. Heart sounds: Normal heart sounds. No murmur heard. Pulmonary: Effort: Pulmonary effort is normal. No respiratory distress. Breath sounds: Normal breath sounds. No wheezing, rhonchi or rales. Abdominal: General: Bowel sounds are normal. There is no distension. Palpations: Abdomen is soft. There is no mass. Tenderness: There is no abdominal tenderness. Hernia: No hernia is present. Musculoskeletal: Right lower leg: No edema. Left lower leg: No edema. Lymphadenopathy: Cervical: No cervical adenopathy. Skin: General: Skin is warm and dry. Neurological: General: No focal deficit present. Mental Status: She is alert and oriented to person, place, and time. Psychiatric: Mood and Affect: Mood normal. Behavior: Behavior normal. Thought Content: Thought content normal. Judgment: Judgment normal. Assessment/Plan Flaquito was seen today for annual exam. Diagnoses and all orders for this visit: Well adult exam - Comprehensive metabolic panel; Future - Lipid profile; Future - Lipid profile - Comprehensive metabolic panel Health maintenance discussed. Check CMP, lipids. 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 Need for vaccination - Tdap vaccine greater than or equal to 7yo IM She agrees for Tdap Osteopenia of left hip - Vitamin D 25 hydroxy; Future - Vitamin D 25 hydroxy Recommended Vitamin D level to r/o cause of osteopenia. She agrees Overweight She is overweight. She would benefit from wt loss. Patient noted to have elevated BMI and the following intervention(s) were applied: encouragement toexercise and prescribed diet education. Other orders - multivitamin tablet; Take 1 tablet by mouth in the morning. documented in this encounterTr[facility] Campus02-12-2025 History of Present illness Narrative* Kai Mendoza DO - 11/23/2024 9:30 AM EST Subjective Patient ID: Flaquito Diaz is a 59 y.o. female. Flaquito Diaz is 59 y.o. female presenting for a follow up for influenza infection on 11/14/24. She wasgiven a medrol dose pack and and cough syrup. She initially felt better but then took a turn for the worse. She reports an increase in fatigue, chest congestion, cough, and chills. The cough is non-productive but she feels like she cannot produce sputum. She reports she has used tessolon pearls before which typically do not improve her sx. She feels pressure in her sinuses around her nose and eyes. Cough Associated symptoms include chest pain (chest tightness with chest congestion), rhinorrhea and shortness of breath. Pertinent negatives include no fever, headaches, myalgias or wheezing. The following portions of the patient's history were reviewed and updated as appropriate: allergies, current medications, past family history, past medical history, past social history, past surgicalhistory, problem list, and medication reconciliation was completed including current medication andpost discharge medication. Review of Systems Constitutional: Positive for appetite change and fatigue. Negative for fever. HENT: Positive for congestion, rhinorrhea, sinus pressure and sinus pain. Negative for hearing loss. Respiratory: Positive for cough and shortness of breath. Negative for wheezing. Cardiovascular: Positive for chest pain (chest tightness with chest congestion). Negative for palpitations. Gastrointestinal: Negative for abdominal pain, blood in stool, constipation, diarrhea, nausea and vomiting. Genitourinary: Negative for dysuria and hematuria. Musculoskeletal: Negative for arthralgias and myalgias. Neurological: Negative for dizziness, light-headedness and headaches. Psychiatric/Behavioral: Negative for agitation. Objective Physical Exam Vitals reviewed. Exam conducted with a home health clinical supervisor present (Dragan Park MS 3). Constitutional: General: She is not in acute distress. Appearance: Normal appearance. She is not ill-appearing. HENT: Head: Normocephalic and atraumatic. Right Ear: Tympanic membrane normal. Left Ear: Tympanic membrane normal. Nose: Congestion and rhinorrhea present. Rhinorrhea is clear. Right Nostril: No occlusion. Left Nostril: No occlusion. Right Turbinates: Enlarged and swollen. Left Turbinates: Enlarged and swollen. Right Sinus: Maxillary sinus tenderness present. Left Sinus: Maxillary sinus tenderness present. Comments: Mucosa erythematous Eyes: Extraocular Movements: Extraocular movements intact. Pupils: Pupils are equal, round, and reactive to light. Cardiovascular: Rate and Rhythm: Normal rate and regular rhythm. Pulses: Normal pulses. Heart sounds: Normal heart sounds. No murmur heard. Pulmonary: Effort: Pulmonary effort is normal. No respiratory distress. Breath sounds: No wheezing, rhonchi or rales. Comments: Decreased breath sounds R middle and lower lobes Abdominal: General: Abdomen is flat. Bowel sounds are normal. There is no distension. Palpations: Abdomen is soft. Tenderness: There is no abdominal tenderness. There is no guarding. Musculoskeletal: Cervical back: Normal range of motion and neck supple. Lymphadenopathy: Cervical: No cervical adenopathy. Skin: General: Skin is warm and dry. Coloration: Skin is not jaundiced. Neurological: General: No focal deficit present. Mental Status: She is alert and oriented to person, place, and time. Psychiatric: Mood and Affect: Mood normal. Behavior: Behavior normal. Thought Content: Thought content normal. Judgment: Judgment normal. Assessment/Plan Flaquito was seen today for cough. Diagnoses and all orders for this visit: Subacute maxillary sinusitis Patient had influenza a and did initially improve but now has worsened with sinus pressure. She believes she has a sinus infection. She has had them in the past. She requests an antibiotic. We will cover her with amoxicillin 875 mg twice a day for 7 days. Call if no better or worse Other orders - Discontinue: amoxicillin (AMOXIL) 875 mg tablet; Take 1 tablet (875 mg total) by mouth in the morning and 1 tablet (875 mg total) before bedtime. Do all this for 7 days. - Discontinue: amoxicillin (AMOXIL) 875 mg tablet; Take 1 tablet (875 mg total) by mouth in the morning and 1 tablet (875 mg total) before bedtime. Do all this for 7 days. - amoxicillin (AMOXIL) 875 mg tablet; Take 1 tablet (875 mg total) by mouth in the morning and 1 tablet (875 mg total) before bedtime. Do all this for 7 days. Shila Park MS3 11/23/24 9:49 AM documented in this encounterTr[facility] Campus02-10-2025 Miscellaneous Notes* Telephone Encounter - Christy Pak CMA - 11/21/2024 4:15 PM EST Patient called and stated that her cough seems to be getting worse. Is there anything you suggest. * Telephone Encounter - Kai Mendoza DO - 11/21/2024 4:15 PM EST Sure. I sent in Mikayla Aguillon * Telephone Encounter - Christy Pak CMA - 11/21/2024 4:15 PM EST notified documented in this encounterTrinity Health [facility] Campus02-10-2025 Telephone encounter Note* Telephone Encounter - Christy Pak CMA - 11/21/2024 4:15 PM EST Patient called and stated that her cough seems to be getting worse. Is there anything you suggest. [facility]02-10-2025 Telephone encounter Note* Telephone Encounter - Kai Mendoza DO - 11/21/2024 4:15 PM EST Sure. I sent in Mikayla Aguillon [facility]02-10-2025 Telephone encounter Note* Telephone Encounter - Christy Pak CMA - 11/21/2024 4:15 PM EST notified [facility]02-03-2025 History of Present illness Narrative* Kai Mendoza DO - 11/14/2024 4:15 PM EST Subjective Patient ID: Flaquito Diaz is a 59 y.o. female. Flaquito presents today for an illness. Started basically Thursday after work. She was feeling tired at work but then it really hit her when she got home. She did get a flu shot at work in the beginning of July. She has had a cough for a couple months before this. She had a couple fevers over the weekend. She feels sinus pressure and congestion. She missed work today because of the illness. She did have body aches. Her is starting to come down with something today. She wonders if she needs an antibiotic. Sinus Problem Associated symptoms include coughing. Cough The following portions of the patient's history were reviewed and updated as appropriate: allergies, current medications, past family history, past medical history, past social history, past surgicalhistory, problem list, and medication reconciliation was completed including current medication andpost discharge medication. Review of Systems Respiratory: Positive for cough. Objective Physical Exam Constitutional: General: She is not in acute distress. Appearance: Normal appearance. She is overweight. She is not ill-appearing. HENT: Head: Normocephalic and atraumatic. Right Ear: Tympanic membrane, ear canal and external ear normal. Left Ear: Tympanic membrane, ear canal and external ear normal. Nose: Congestion and rhinorrhea present. Rhinorrhea is clear. Right Turbinates: Enlarged and swollen. Left Turbinates: Enlarged and swollen. Comments: Mucosa is red and inflamed Mouth/Throat: Lips: [place]. Mouth: Mucous membranes are moist. Pharynx: Oropharynx is clear. Uvula midline. No pharyngeal swelling or oropharyngeal exudate. Cardiovascular: Rate and Rhythm: Normal rate and regular rhythm. Pulses: Normal pulses. Heart sounds: Normal heart sounds. No murmur heard. Pulmonary: Effort: Pulmonary effort is normal. No respiratory distress. Breath sounds: Normal breath sounds. No wheezing, rhonchi or rales. Musculoskeletal: Cervical back: Neck supple. Lymphadenopathy: Cervical: No cervical adenopathy. Neurological: General: No focal deficit present. Mental Status: She is alert and oriented to person, place, and time. Assessment/Plan Flaquito was seen today for sinus problem and cough. Diagnoses and all orders for this visit: Influenza A - POCT Influenza A/Influenza B/SARS-COV-2 Veritor Other orders - dfwoofvhyobkyyj-drhafcynb-BF (BROMFED DM) 2-30-10 mg/5 mL syrup; Take 10 mL by mouth 4 (four) times a day as needed for congestion or cough. - methylPREDNISolone (MEDROL, CATHERINE,) 4 mg tablet; Take 1 tablet (4 mg total) by mouth in the morning. follow package directions. She has influenza A. She is out of the 48 hour window. To start Tamiflu. She requests an antibioticbut explained that this is a viral illness and antibiotics are ineffective unless she were to get asecondary bacterial infection. She would like something for the cough. She was given a prescriptionfor Bromfed DM and a MDP. Call if worse, new symptoms or fever returns. documented in this encounterToledo HospitalChasm.io (formerly [place]) [id number] History of Present illness Narrative* VERONA Fowler - 08/17/2024 2:00 PM EST Reason for Appointment: Patient ID: Flaquito Diaz is a 59 y.o. female who presents for Gynecologic Exam Patient presents today for Annual Exam. MEDICATIONS Current Outpatient Medications Medication Instructions Udbrpwsbbhw-Qrklazqch-Lkhwvq (Trelegy Ellipta) 100-62.5-25 MCG/ACT aerosol powder 1 [...] nursing note reviewed. Exam conducted with a home health clinical supervisor present. Vitals: Estimated body mass index is [...] mammogram Bilateral screening mammogram 3. Osteoporosis, post-menopausal ([facility]) M81.0 DEXA bone density Annual: Patient presents [...] behalf of: VERONA Fowler documented in this encounterEllett Memorial HospitalCvcijjflwe70-91-0891 History of Present illness Narrative* Manjinder Cardozo, - 07/18/2024 11:45 AM EDT IM PROGRESS NOTE Patient - Flaquito Diaz Age - 59 y.o. - 1965 ASSESSMENT & PLAN 1. Acute bronchitis, unspecified organism -appears to have upper respiratory infection or allergic reaction, which has spread to the upper airways of the long. -start prednisone burst 20 mg daily x5 days -inhaler routinely for the next 5-7 days -may continue OTC [place] or Robitussin for symptom relief -if not improving over the next 3-4 days, will need to add antibiotic. - predniSONE (DELTASONE) 20 mg tablet; Take 1 tablet (20 mg total) by mouth in the morning for 5 days. Dispense: 5 tablet; Refill: 0 - ecyxpwjruqs-amzjpbvgx-abjrrygq (TRELEGY ELLIPTA) 100-62.5-25 mcg blister with device; [...] Behavior: Behavior normal. Meds Current Outpatient Medications: hjitjxtxdkn-reqrneuhn-osqbfevd (TRELEGY ELLIPTA) 100-62.5-25 mcg blister with device, Inhale 1 puffin the morning., Disp: 14 each, Rfl: 0 [...] Testing No results found. Manjinder Cardozo DO., [facility] Office: [phone] documented in this encounterTrinity Health [facility] Campus03-20-2024 History of Present illness Narrative* Eleanor Kc, ASPEN-COAL HAULER OPERATOR - 12/30/2023 4:00 PM EDT Images from the original note were not included. [address] [place] [address] SUBJECTIVE: Patient ID: Flaquito Diaz is [...] past medical history, past social history, past surgicalhistory and problem list. Past Surgical History: Procedure [...] and the following intervention(s) were applied: encouragement toexercise. Physical Exam Vitals and nursing note reviewed. [...] throat. Motrin or Tylenol as needed per senior environmental scientist guidelines for fever or pain. May continue [...] MAITE Thomas 12/30/23 1627 documented in this encounterTrinity Health [facility] Campus06-29-2021 NotePROCEDURE: XR WRIST RT 2V HISTORY: Closed fracture [...] concerning for ligament disruption. Electronically authenticated by: JERZY ORELLANA Date: 2021-04-09 17:35[facility]06-14-[facility] NotePROCEDURE: XR WRIST RT 2V HISTORY: Pain of [...] or change in alignment. Electronically authenticated by: JERZY ORELLANA Date: 2021-03-25 16:29[facility] HospitalKgpdtzvy04-19-1713 NotePROCEDURE: XR WRIST RT 2V COMPARISON: 02/04/2021 HISTORY: [...] Electronically authenticated by: MARCELO MOON Date: 2021-03-04 14:10[facility]* Diagnosis Well woman exam with routine gynecological exam Routine gynecological examination Breast cancer screening by mammogram Osteoporosis, post-menopausal ([facility]) Senile osteoporosis documented in this encounter [facility] HealthcareEvaluation note* Diagnosis Influenza A- Primary Influenza with other respiratory manifestations [facility] Diagnosis Subacute maxillary sinusitis- Primary [facility] in this [facility]* Diagnosis Acute non-recurrent pansinusitis- Primary documented in this encounter [facility]* Diagnosis Acute bronchitis, unspecified organism- Primary documented in this encounter [facility]* Diagnosis Well adult exam- Primary Routine general medical examination at a health care facility Need for vaccination Need for prophylactic vaccination and inoculation against unspecified single disease Osteopenia of left hip Overweight documented in this encounter [facility] SystemInstructionsNot on filedocumented in this encounter [facility] SystemInstructionsNot on filedocumented in this encounter [facility] SystemInstructionsNot on filedocumented in this encounter [facility] SystemInstructionsNot on filedocumented in this encounter [facility] SystemInstructions* Attachments The following attachments cannot be sent through Care Everywhere. * Sinusitis, Adult ED ([place]) documented in this encounterProMedica Health SystemInstructionsNot on file documented in this encounterProMedica Health SystemInstructionsNot on file documented in this encounterProThe [facility] System Summary Purpose Family History No Family History Records FoundNo Family History Records FoundNo Family History Records Found Advance Directives No Advanced Directives Records FoundNo Advanced Directives Records FoundNo Advanced Directives Records Found Additional Source Comments INFORMATION SOURCE (unrecogn ized section and content) DATE CREATED AUTHOR 03/01/2022 [facility] DATE CREATED AUTHOR AUTHOR'S ORGANIZ ATION 08/19/2024 [facility] DATE CREATED AUTHOR AUTHOR'S ORGANIZ ATION 03/21/2025 [facility] Care Teams (unrecognized sec tion and content) Team MemberRelationshipSpecialtyStart DateEnd Date Leodan Sawant MD [address] [place] [address] PCP - Generalmi Medicine04/29/23Team MemberRelationshipSpecialtyStart DateEnd Date Leodan Sawant MD [address] [place] [address] PCP - [facility]Arch[facility]04/29/23am MemberRelationshipSpecialtyStart DateEnd Date Kai Mendoza DO [address], [place] [address] [facility]CP - [facility] Gmokmimb37/3/23Team MemberRelationshipSpecialtyStart DateEnd Date Kai Mendoza DO [address], [place] [address] PCP - Generalmi Dacnkzst00/3/23Team MemberRelationshipSpecialtyStart DateEnd Date Kai Mendoza DO [address], [place] [address] PCP - Generalmi Fhlbvohq76/3/23Team MemberRelationshipSpecialtyStart DateEnd Date Kai Mendoza DO [address], [place] [address] PCP - [facility]07/14/23Te MemberRelationshipSpecialtyStart DateEnd Date Kai Mendoza DO [address], [place] [address] PCP - [facility]07/14/23Te MemberRelationshipSpecialtyStart DateEnd Date Kai Mendoza DO [address], [place] [address] PCP - [facility]07/14/23Te MemberRelationshipSpecialtyStart DateEnd Date Leodan Sawant MD PCP - [facility]04/29/23 Reason for Visit (unrecogniz ed section and content) ReasonCommentsGynecologic ExamReasonCommentsSinus ProblemCoughCouple months- last week- (Neg COVID-11/14 )ReasonCommentsCoughcongestionReasonCommentsSinus ProblemX2 monthsReasonCommentsNasal CongestionFatigueCoughX5 daysReasonComments Annual ExamCough, every since July of last year. FOR RECORDS PERTAINING TO PATIENTS WHO ARE [...] BE BASED ON THE PRIMARY CLINICAL RECORDS. [facility] There [facility]. provides no warranty or guarantee of the accuracy or completeness of information in this document.
== END 2025-08-22 19:16 | disposition home or self-care (01) ==
LOC: LAB 19:15
PROVIDERS: PCP Family Medicine; Visit Provider Physician Assistant
DX: Z01.419 Encounter for gynecological examination (general) (routine) without abnormal findings (principal)
CPT/HCPCS: 87624; 88175

== ENCOUNTER 2025-09-06 08:34 | Outpatient (OUT) | payer OTHER, SELFPAY ==
--- OUTSIDE RECORDS SUMMARY | 2025-09-06 08:35 | XMS_ITS | Encounter Summary ---
Author Organization [facility] Address [address] [facility] [place] [address] Care Team Providers Care Data Entry Coordinator Name Role Phone Kai Mendoza MD Primary Care Provider Encounter Details DateTypeDepartmentCare Team (Latest Contact Info)Ccuqtidirof80/21/2025Orders Only NOMYarelis LEW [address] [place] [address] Tiffanie Bone LPN [address] [facility] [address] [place] [address] Social History Tobacco UseTypesPacks/DayYears UsedDateSmoking Tobacco: NeverAlcohol UseStandard Drinks/WeekCommentsNever0 (1 standard drink = 0.6 oz pure alcohol)Caffeine intake: 1-2 cups per dayCommentsNoSex and Gender InformationValueDate RecordedSex Assigned at BirthNot on fileLegal WyoXadeok38/15/2023 7:25 PM EDT Gender IdentityNot on fileSexual OrientationNot on filedocumented as of this encounter Plan of Treatment DateTypeDepartmentCare Team (Latest Contact Info)Ybwinaxtdba61/17/2026 1:00 PM ESTProcedure Visit [facility] Dory LEW [address] [place] [place] [address] Emilee Viveros PA [address] [place], [facility]11 documented as of this encounter Procedures Procedure NamePriorityDate/TimeAssociated DiagnosisCommentsPAP TEST, EXTERNAL Pzxicqj9208/22/2025 12:00 AM ESTdocumented in this encounter Results * PAP TEST, EXTERNAL (08/22/2025 12:00 AM EST) Narrative Authorizing ProviderResult TypeResult StatusFazio Nurse Noms Bcp ObLAB CYTOLOGY ORDERABLESFinal ResultPerforming OrganizationAddressCity/State/ZIP CodePhone Number EXTERNAL LAB documented in this encounter Visit Diagnoses Not on filedocumented in this encounter Care Teams Team MemberRelationshipSpecialtyStart DateEnd Date Kai Mendoza MD [address] [facility], [place] [address] PCP - GeneralFamily Hlcfdama24/11/25documented as of this encounter
--- OUTSIDE RECORDS SUMMARY | 2025-09-06 08:35 | XMS_ITS | Encounter Summary ---
Author Organization [facility] Address [address] [place] [address] Care Team Providers Care Transportation Officer Name Role Phone Kai Mendoza MD Primary Care Provider Encounter Details DateTypeDeregency hospitalCare Team (Latest Contact Info)Mbluitlesxf77/11/2025linisync Result Encounter NOMS External Department Unsolicited Emilee Viveros PA [address] [place] [address] Social History Tobacco UseTypesPacks/DayYears UsedDateSmoking Tobacco: NeverAlcohol UseStandard Drinks/WeekCommentsNever0 (1 standard drink = 0.6 oz pure alcohol)Caffeine intake: 1-2 cups per dayCommentsNoSex and Gender InformationValueDate RecordedSex Assigned at BirthNot on fileLegal FglCsotxt17/15/2023 7:25 PM EDT Gender IdentityNot on fileSexual OrientationNot on filedocumented as of this encounter Plan of Treatment DateTypeDeregency hospitalCare Team (Latest Contact Info)Ioxzzngewzo23/17/2026 1:00 PM ESTProcedure Visit [facility] Dory LEW [address] [facility] [address] [place] [address] Emilee Viveros PA [address] [place] [address] documented as of this encounter Procedures Procedure NamePriorityDate/TimeAssociated DiagnosisCommentsIGP,APTIMA HPV,AGE WHNEHsrpsot90/11/2025 1:00 PM EST documented in this encounter Results * IGP,APTIMA HPV,AGE GDLN (08/22/2025 1:00 PM EST)ComponentValueRef RangeTest MethodAnalysis TimePerformed AtPathologist SignatureAGE GDLN ACOG TESTINGNote. TBHComment: ?? TESTS ? RESULT ??FLAG ??UNITS ?REF RANGE ??LAB ?? Clinician Provided Cytology Information ?? Source.............Cervix;Endocervix ?? No. of containers..01 ThinPrep Vial Age Algo ACOG Debbie... ??30-65 ? 01 ?FLAG LEGEND: ?L-Low Normal,H-High Normal,LL-Alert Low,HH-Alert High <-Panic Low,>-Panic High,A-Abnormal,AA-Critical Abnormal Performed at: 01 =G ?[facility] ?? [address] [place] ??[phone] ?? Reba Smith MD, IGP, APTIMA HPV, RFX 16/18,45Note.TBHComment: ?? TESTS ? RESULT ??FLAG ??UNITS ?REF RANGE ??LAB DIAGNOSIS: ?02 ?? NEGATIVE FOR INTRAEPITHELIAL LESION OR MALIGNANCY. Specimen adequacy: ?02 ?? Satisfactory for evaluation. ??Endocervical and/or squamous metaplastic ?? cells (endocervical component) are present. Performed by: ? 02 ?? Jhoana Kothari Aix System Administrator (ASCP) . ? 02 Note: ? Note ?02 ?? The Pap smear is a screening test designed to aid in the ?? detection of premalignant and malignant conditions of the ?? uterine cervix. ??It is not a diagnostic procedure and ?? should not be used as the sole means of detecting cervical ?? cancer. ??Both false-positive and false-negative reports do ?? occur. Test Methodology: ? Note ?02 ?? This liquid based ThinPrep(R) pap test was interpreted ?? using the HoloTruckily(R) Genius(TM) Cervical Algorithm whole ?? slide imaging system. HPV Genotype Reflex ?? Note ?02 ?? Criteria not met, HPV Genotype not performed. ?FLAG LEGEND: ?L-Low Normal,H-High Normal,LL-Alert Low,HH-Alert High <-Panic Low,>-Panic High,A-Abnormal,AA-Critical Abnormal Performed at: 02 WB ?[facility] ?? [address], [place] ??[phone] ?? Reba Smith MD, HPV APTIMANegativeNegativeTBHComment: This nucleic acid amplification test detects fourteen high- risk HPV types (16,18,31,33,35,39,45,51,52,56,58,59,66,68) without differentiation. Performed at: ??=G - [facility] [address] ??[id number] Cooker Meal: Reba Smith MD, Phone: ??[phone] Performed at: ??WB - [facility] ??[id number] Cooker Meal: Reba Smith MD, Phone: ??[phone] Specimen (Source)Anatomical Location / LateralityCollection Method / Volume Collection TimeReceived Time08/22/2025 1:00 PM EST08/22/2025 8:01 PM EST Narrative CLINISYNC - 08/25/2025 3:08 PM EST BRUSH-SPATULA CERVIX ENDOCERVIX Authorizing ProviderResult TypeResult StatusAmy Jackeline PALAB BLOOD ORDERABLES Final ResultPerforming OrganizationAddressCity/State/ZIP CodePhone Number CLINISYNC TB documented in this encounter Visit Diagnoses Not on filedocumented in this encounter Care Teams Team MemberRelationshipSpecialtyStart DateEnd Date Kai Mendoza MD [address] [facility], [place] [address] PCP - GeneralFamily Ohbxvsly22/11/25documented as of this encounter
--- OUTSIDE RECORDS SUMMARY | 2025-09-06 08:35 | XMS_ITS | Clinical Summary ---
Author Organization [facility] Address [address] [facility] [place] [address] Care Team Providers Care Barn Hand Name Role Phone Kai Ellsworth MD Primary Care Provider Allergies Active AllergyReactionsCriticalityNoted QhllDieukkpdClbtxfgihe23/19/2023 Other Reaction(s): Unknown Other Reaction(s): None-it was ineffective past; not an allergy Medications MedicationSigDispense QuantityRefillsLast FilledStart DateEnd DateStatus Yzytrqetbst-Etvbqipsl-Ixfcaz (Trelegy Ellipta) 100-62.5-25 MCG/ACT aerosol powder Inhale 1 puff in the morning.4Active Multiple Vitamin (Multi-Vitamin) tablet Take 1 tablet by mouth in the morning.5Active ergocalciferol (Vitamin D-2) 200 MCG/ML drops Take 100 mcg by mouth DailyActive Encounters DateTypeDepartmentCare PfhnSojtuuqwcdp23/21/2025Orders Only NOMS Dory LEW [address] [place] [address] Tiffanie Bone LPN 08/22/2025 1:00 PM ESTOffice Visit [facility] Dory LEW [address] [facility] [place] [address] Emilee Viveros PA Well woman exam with routine gynecological exam; Encounter for screening mammogram for malignant neoplasm of breast; Postmenopausal state5Clinisync Result Encounter NOMS External Department Unsolicited Emilee Viveros PA 5Bamboo flowsheet [facility] Dory LEW [address] [facility] [place] [address] Emilee Viveros PA from Last 3 Months [...] Last Filed Vital Signs Vital SignReadingTime TakenCommentsBlood Vdkfqhcz265/7208/22/2025 1:17 PM EST Pulse--Temperature--Respiratory Rate--Oxygen Saturation--Inhaled Oxygen Concentration--Hkhvvc10.2 kg (143 lb 12.8 oz)08/22/2025 1:17 PM WOXLuzztp114.9 cm (4' 11 )08/22/2025 1:17 PM ESTBody Mass Index29.04110/22/2024 1:17 PM EST Plan of Treatment DateTypeDepartmentCare Team (Latest Contact Info)Satjoirqebj06/17/2026 1:00 PM ESTProcedure Visit [facility] Dory LEW [address] [place] [phone] Emilee Viveros PA [address] [facility] [place] [address] Health MaintenanceDue DateLast DoneCommentsCT Ohpxyfgkoqlj1964FIT-DNA 1965FIT1965FOBT1965 7023Cpuefegavtwmj1964COVID-19 Vaccine ( season)/07/2022, 03/15/2021, 02/22/2021Influenza Vaccine (#1), 07/30/2022, 07/17/2020, Additional history exists Ntmdjarms57/26/66362411/06/2023, 07/23/2023HPV/Jfgofj183Cervical Cancer Bbwwkqtxw62/11/2028Pap Smear, 3Colonoscopy Colorectal Cancer Qdjzppxkk38/07/2030Pneumococcal Vaccine: Pediatrics (0 to 5 Years) and At-Risk Patients (6 to 64 Years)Aged OutNo longer eligible based on patient's age to complete this topic Procedures Procedure NamePriorityDate/TimeAssociated DiagnosisCommentsIGP,APTIMA HPV,AGE KDVNXvedjsc98/11/2025 1:00 PM EST PAP TEST, LGJUOLMZGylzipl17/11/2025 12:00 AM ESTMM TOMOSYNTHESIS SCREENING BI 09/06/2024 1:56 PM EST THINPREP PAP AND HPV MRNA E6/E7 W/RFL HPV 16,18/51Cnikqxv68/11/2023 11:58 AM EDT Well woman exam with routine gynecological exam BIGLZGUQHFJUveemmi35/07/2020 12:00 PM EST from Last 3 Months or Most Recently Relevant to Health Maintenance Results * IGP,APTIMA HPV,AGE GDLN (08/22/2025 1:00 [...] at: 01 =G ?[facility] ?? [address] [place], [place] ??[phone] ?? Reba Smith MD, IGP, APTIMA HPV, RFX 16/18,45Note.TBHComment: ?? TESTS ? RESULT ??FLAG ??UNITS ?REF RANGE ??LAB DIAGNOSIS: ?02 ?? NEGATIVE FOR INTRAEPITHELIAL LESION OR MALIGNANCY. Specimen adequacy: ?02 ?? Satisfactory for evaluation. ??Endocervical and/or squamous metaplastic ?? cells (endocervical component) are present. Performed by: ? 02 ?? Jhoana Kothari Recruiting Associate (ASCP) . ? 02 Note: ? Note [...] pap test was interpreted ?? using the WegoWise(R) Genius(TM) Cervical Algorithm whole ?? slide imaging system. HPV Genotype Reflex ?? Note ?02 ?? Criteria not met, HPV Genotype not performed. ?FLAG LEGEND: ?L-Low Normal,H-High Normal,LL-Alert Low,HH-Alert High <-Panic Low,>-Panic High,A-Abnormal,AA-Critical Abnormal Performed at: 02 WB ?[facility] ?? [address] [place], [place] ??[phone] ?? Reba Smith MD, HPV APTIMANegativeNegativeTBHComment: This nucleic acid amplification test detects fourteen high- risk HPV types (16,18,31,33,35,39,45,51,52,56,58,59,66,68) without differentiation. Performed at: ??=G - [facility] ??[id number] Busboy: Reba Smith MD, Phone: ??[phone] Performed at: ??WB - [facility] ??[id number] Busboy: Reba Smith MD, Phone: ??[phone] Specimen (Source)Anatomical Location / LateralityCollection Method / Volume Collection TimeReceived Time08/22/2025 1:00 PM EST08/22/2025 8:01 PM EST Narrative CLINISYNC - 08/25/2025 3:08 PM EST BRUSH-SPATULA CERVIX ENDOCERVIX Authorizing ProviderResult TypeResult StatusAmy Jackeline PALAB BLOOD ORDERABLES Final ResultPerforming OrganizationAddressCity/State/ZIP CodePhone Number CLINISYID TBH * PAP TEST, EXTERNAL (08/22/2025 12:00 AM EST) Narrative Authorizing ProviderResult TypeResult StatusFazio Nurse Noms Bcp ObLAB CYTOLOGY ORDERABLESFinal ResultPerforming OrganizationAddressCity/State/ZIP CodePhone Number EXTERNAL LAB * MM TOMOSYNTHESIS SCREENING BI (09/06/2024 1:56 PM EST)Anatomical Region LateralityModalityOtherSpecimen (Source)Anatomical Location / Laterality Collection Method / VolumeCollection TimeReceived Time09/06/2024 1:56 PM EST Narrative 09/06/2024 1:57 PM EST [facility] ?[address] ? [place] [address] ? Mammography Report ? Signed ? Patient: FLAQUITO DIAZ ? MR#: [id number] ?? : 1965 ?Acct:[id number] ?? Age/Sex: 59 / F ?ADM Date: 11/25/24 ?? Loc: MAMMO ? Attending Dr: Emilee Viveros ? Ordering Physician: Emilee Viveros ?Results: ? Date of Service: 09/05/24 ?Follow Up: ? Procedure(s): MM tomosynthesis screening BI ?? Accession Number(s): [id number] ? cc: Emilee Viveros; KAI ELLSWORTH ? Patient Name: ? FLAQUITO DIAZ ? MR#: [id number] ? : 1965 ? Exam Date: 09/05/2024 [...] at age ??39. ? LOCATION: ? [facility] ? BREAST COMPOSITION: ? The breasts [...] ? Signed By: ?09/06/24 1357 ? DD/ 1356 ? TD/TT: ? Retail Presentation Specialist: Procedure Note Radiology, Radiologist, MD - 09/06/2024 [place] [address] Mammography Report Signed Patient: FLAQUITO DIAZ MMR#: [id number] : 1965Acct:[id number] Age/Sex: 59 / FADM Date: 09/05/24 Loc: MAMMO Attending Dr: Emilee Viveros Ordering Physician: mEilee Cabreraults: Date of Service: 09/05/24Follow Up: Procedure(s): MM tomosynthesis screening BI Accession Number(s): [id number] cc: Emilee Viveros; KAI ELLSWORTH Patient Name: FLAQUITO DIAZ MR#: [id number] : 1965 Exam Date: 09/05/2024 Ordering Doctor: VERONA Viveros . RADIOLOGY REPORT PROCEDURE: MM TOMOSYNTHESIS SCREENING BI COMPARISON: MM TOMOSYNTHESIS SCREENING BI, 07/21/2023. MG MAMM QQDZLF3X COLLEEN CAD, 02/20/2022. MG MAMM SCREEN COLLEEN [...] stomach cancer at age 39. LOCATION: [facility] BREAST COMPOSITION: The breasts are extremely [...] M.D. Signed By:09/06/24 1357 DD/ 1356 TD/TT: Retail Presentation Specialist: Authorizing ProviderResult TypeResult StatusAmy Jackeline PACLINISYNC IMAGINGFinal Result * THINPREP PAP AND HPV MRNA E6/E7 W/RFL HPV 16,18/45 (05/22/2023 11:58 AM EDT) Narrative Authorizing ProviderResult TypeResult StatusAmy Jackeline PALAB BLOOD ORDERABLES Final ResultPerforming OrganizationAddressCity/State/ZIP CodePhone Number EXTERNAL LAB * Colonoscopy (11/18/2019 12:00 PM EST)Anatomical RegionLateralityModality EndoscopySpecimen (Source)Anatomical Location / LateralityCollection Method / VolumeCollection TimeReceived Time11/18/2019 12:00 PM EST Narrative 11/18/2019 12:00 PM EST PERFORMED AT [facility] LOCATION:[id number] Procedure Note CONVERSION, GENERIC - 02/25/2023 PERFORMED AT [facility] LOCATION:[id number] Authorizing ProviderResult TypeResult StatusJair Gomes MDENDOSCOPY PROCEDURE ORDERABLESFinal Result from Last 3 Months or Most Recently Relevant to Health Maintenance Insurance Care Teams Team MemberRelationshipSpecialtyStart DateEnd Kai Ellsworth MD [address] [facility], [place] [address] PCP - GeneralFamily Azjrrgtj17/11/25
--- OUTSIDE RECORDS SUMMARY | 2025-09-06 08:35 | XMS_ITS | Clinical Summary ---
Author Organization [employer] Address [id number] [address] [place] [address] Care Team Providers Care Title Abstractor Name Role Phone Kai Mendoza DO Primary Care Provider + [phone] Allergies Active AllergyReactionsCriticalityNoted QytrVsigewcaPrwuvvatdi17/19/2023 Other Reaction(s): None-it was ineffective past; not an allergy Medications MedicationSigDispense QuantityRefillsLast FilledStart DateEnd DateStatus fluticasone propionate (FLONASE) 50 mcg/actuation nasal spray Administer 1 spray into each nostril in the morning.Active multivitamin tablet Take 1 tablet by mouth in the morning.5Active Active Problems No known active problems Immunizations ImmunizationAdministration DatesNext DueInfluenza Vaccine, Quadrivalent, Jdnmqlpfgw75/02/2024Influenza Whole07/14/2013Influenza, Injectable, Mdck, Preservative Free, Quad07/17/2020Influenza, Injectable, quadrivalent (PF) 07/30/2022Tdap03/20/2025 Family History Medical HistoryRelationNameCommentsNo Known ProblemsDaughterDiabetesFather HypertensionFatherKidney failureFatherBreast cancerMotherdied at gae 70 OsteoporosisMotherno hip fractureDrug abuseSon 1LarryNo Known ProblemsSon 2 RelationNameStatusCommentsDaughterAliveFatherDeceasedMotherDeceasedSon 1Larry DeceasedSon 2Alive Social History Tobacco UseTypesPacks/DayYears UsedDateSmoking Tobacco: FormerCigarettes0.34 Smokeless Tobacco: Never Tobacco Cessation:Counseling Given: Not Answered Alcohol UseStandard Drinks/WeekCommentsYes0 (1 standard drink = 0.6 oz pure alcohol)OccasionalAHC UtilitiesAnswerDate RecordedIn the past 12 months has the electric, gas, oil, or water company threatened to shut off services in your home?No03/20/2025Social Connection and Isolation PanelAnswerDate RecordedIn a typical week, how many times do you talk on the phone with family, friends, or neighbors?More than three times a week07/14/2023How often do you get together with friends or relatives?Once a week07/14/2023How often do you attend voodoo or episcopal services?More than 4 times per year07/14/2023o you belong to any clubs or organizations such as voodoo groups, unions, fraternal or athletic anthony ups, or school groups?Yes07/14/2023How often do you attend meetings of the clubs or organizations you belong to?More than 4 times per year07/14/2023re you , , , , never , or living with a partner? Hpbuxhmi56/03/2023UDIT-CAnswerDate RecordedQ1: How often do you have a drink containing alcohol?Monthly or less07/14/2023Q2: How many drinks containing alcohol do you have on a typical day when you are drinking?1 or Q3: How often do you have six or more drinks on one occasion?Never07/14/2023Overall Financial Resource Strain (CARDIA)AnswerDate RecordedHow hard is it for you to pay for the very basics like food, housing, medical care, and heating?Not hard at all07/14/2023HQ-2AnswerDate RecordedTotal Hlrtf749Fin[facility] [place] of Occupational Health - Occupational Stress QuestionnaireAnswerDate RecordedDo you feel stress - tense, restless, nervous, or anxious, or unable to sleep at night because yourmind is troubled all the time - these days?Only a little 07/14/2023Exercise Vital SignAnswerDate RecordedOn average, how many days per week do you engage in moderate to strenuous exercise (like a brisk walk)?4 days 03/20/2025On average, how many minutes do you engage in exercise at this level? 20 min03/20/2025PRAPARE - TransportationAnswerDate RecordedIn the past 12 months, has lack of transportation kept you from medical appointments or from getting medications?No07/14/2023In the past 12 months, has lack of transportation kept you from meetings, work, or from getting things needed for daily living?No07/14/2023Housing InstabilityAnswerDate RecordedAre you worried or concerned that in the next two months you may not have stable housing that you own, rent or stay in as a part of a household?No07/14/2023hildcareAnswer Date RecordedDo problems getting childhood teacher make it difficult for you to work or study?No07/14/2023EmploymentAnswerDate RecordedDo you need help finding a local career center and/or a training program?No07/14/2023Hunger ScreeningAnswerDate RecordedWithin the past 12 months we worried whether our food would run out before we got money to buy more.Never True03/20/2025Within the past 12 months the food we bought just didn't last and we didn't have money to get more.Never True03/20/2025Purpose - LifeAnswerDate RecordedI have a purpose and direction in my life.Strongly Agree07/14/2023CommentsUnknownSex and Gender InformationValueDate RecordedSex Assigned at BirthNot on fileLegal SexFemale 05/17/2015 11:21 AM EDTGender IdentityNot on fileSexual OrientationNot on file Last Filed Vital Signs Vital SignReadingTime TakenCommentsBlood Kmvruzfl610/70003/20/2025 3:57 PM EDT Keivr549303/20/2025 3:57 PM IQVWahzdrgeplr77.4 ??C (97.6 ??F)03/20/2025 3:57 PM EDTRespiratory Xsze828303/20/2025 3:57 PM EDTOxygen Bdodkcfdsq40%03/20/2025 3:57 PM EDTInhaled Oxygen Concentration--Ugiiir11.6 kg (142 lb 6.4 oz)03/20/2025 3:57 PM LMBMhrkoh701.7 cm (4' 10.54 )03/20/2025 3:57 PM EDTBody Mass Index29.21 03/20/2025 3:57 PM EDT Plan of Treatment Health MaintenanceDue DateLast DoneCommentsZoster (Shingles) Vaccine (1 of 2) 2014COVID-19 Vaccine ( season)/07/2022, 03/15/2021, 02/22/2021Influenza Lfvscbb82/11/2023, 07/30/2022, 07/17/2020, Additional history xnpwffOnllntepv29/25/202511/, 07/21/2023dult BMI Follow Up Plan/dult BMI Invsymdrh39/06/2025 Depression Zqdnsvrog43/06/2025Tobacco Shgeubuda63/06/2025Pap Smear/08/2023, 03/18/20232978Vdbmetgbwtl79/07/203002/04/2020, 11/18/2019 DTaP,Tdap and Td Vaccines (2 - Td or Tdap)RSV ( or age 60+ yrs) (1 - 1-dose 75+ series)2039 Medical Devices Not on file Procedures Procedure NamePriorityDate/TimeAssociated DiagnosisCommentsHM MAMMOGRAPHYRoutine 09/05/2024 1:45 PM ESTfrom Last 3 Months or Most Recently Relevant to Health Maintenance Results * HM MAMMOGRAPHY (09/05/2024 1:45 PM EST)Anatomical RegionLateralityModality Other Narrative Authorizing ProviderResult TypeResult StatusNot In System Ref ProvHEALTH MAINTENANCEFinal Result from Last 3 Months or Most Recently Relevant to Health Maintenance Insurance Care Teams Team MemberRelationshipSpecialtyStart DateEnd Date Kai Mendoza DO [address] [facility], [place] [address] PCP - GeneralFamily Vhmiloow63/3/23
--- NOTE | 2025-09-06 08:40 | MM_ITS ---
Patient Name: FLAQUITO PATINO MR#: [id number] : 1965 Exam Date: 09/06/2025 Ordering Doctor: VERONA BEATTY . RADIOLOGY REPORT PROCEDURE: MM TOMOSYNTHESIS SCREENING BI COMPARISON: MM TOMOSYNTHESIS SCREENING BI, 09/05/2024. MM TOMOSYNTHESIS SCREENING BI, 07/21/2023. MG MAMM SCREEN 3D COLLEEN CAD, 02/20/2022. MG MAMM COLLEEN SCRN W CAD DIG, 02/05/2011. INDICATIONS: Screening Calculator Name NCI Breast Cancer Risk Assessment Tool 5 Year Breast Cancer Risk 3.00% Lifetime Breast Cancer Risk 14.00% Personal Breast Cancer No Personal Ovarian Cancer No Treatments None Family Cancers Mother with breast cancer at age ~58; Aunt-maternal with breast cancer at age 82; Grandfather-maternal with skin cancer at age 60; Uncle-maternal with stomach cancer at age ~40. LOCATION: [facility] BREAST COMPOSITION: There are scattered areas of fibroglandular density. FINDINGS: DIAGNOSTIC CATEGORY 1--NEGATIVE. RIGHT BREAST: No significant suspicious finding. LEFT BREAST: No significant suspicious finding. RECOMMENDATIONS: ROUTINE MAMMOGRAM AND CLINICAL EVALUATION IN 12 MONTHS. Dictated by: Samuel Cho DO on 09/06/2025 at 10:51 Approved by: Samuel Cho DO on 09/06/2025 at 10:52
== END 2025-09-06 08:35 | disposition home or self-care (01) ==
LOC: MAMMO 08:34
PROVIDERS: PCP Family Medicine; Visit Provider Physician Assistant
DX: Z12.31 Encounter for screening mammogram for malignant neoplasm of breast (principal); Z80.3 Family history of malignant neoplasm of breast; Z80.0 Family history of malignant neoplasm of digestive organs; Z80.8 Family history of malignant neoplasm of other organs or systems
CPT/HCPCS: 77063; 77067